=== PATIENT | female | born 2000 | race Caucasian/White ===

== ENCOUNTER 2020-04-10 12:15 | Emergency (ER) | payer MEDICAID, SELFPAY ==
[2020-04-10 12:37] VITALS: BP 114/76; PULSE 91; RESP 15; TEMP 37; O2SAT 98; BMI 25.7
--- NOTE | 2020-04-10 12:46 | XRR_ITS ---
PROCEDURE INFORMATION: Exam: XR Left Foot Complete Exam date and time: 04/10/2020 1:12 PM Age: 19 years old Clinical indication: Pain; Foot; Left; Patient HX: 4 days prior began hurting after workout. ; Additional info: Injury TECHNIQUE: Imaging protocol: XR Left foot. Views: 3 or more views. COMPARISON: CR Foot 3 views, LEFT* [id number] 07/11/2014 1:56 PM FINDINGS: Bones/joints: Negative for acute bony abnormality Soft tissues: Normal. XR/XR foot LT min 3V* [id number] IMPRESSION: No acute findings.
--- NOTE | 2020-04-10 12:46 | W.ED.EXTPRO ---
HPI - Extremity Problem General: Chief complaint: Extremity Problem,Nontraumatic Stated complaint: Left foot pain Time Seen by Provider: 04/10/20 12:42 History of Present Illness: HPI Narrative: Patient said her left foot is been hurting for 3 days. Started hurting the day after she began a workout routine. She did not remember any specific injury. She is describes pain being on the left midfoot and radiates up through the ankle joint. MD Complaint: extremity pain Onset (ago): day(s) Pain Consistency: constant Location: left and lower extremity Severity scale (1-10): 4 Quality: aching Radiation: proximal Relieving factors: rest Exacerbating factors: range of motion and weight bearing Associated symptoms: Reports no associated symptoms; Deny chest pain, fever(s) or rash Review of Systems Const: Denies: fever(s), chills or body aches Eyes: Denies: change in vision or blurry vision ENMT: Denies: throat pain or nasal congestion Card: Denies: chest pain or dyspnea on exertion Resp: Denies: dyspnea, productive cough or non-productive cough GI: Denies: abdominal pain, nausea or vomiting Musc: Reports: extremity pain (Left foot) Skin/Breast: Denies: rash Neuro: Denies: headache(s) Psych: Denies: anxiety or depression Jimmie/Lymph: Denies: easy bruising [facility] ED PFSH: Social History (Updated 04/10/20 @ 12:42 by Erik Teague RN) Smoking and tobacco status: never smoked Alcohol intake: never Substance/Drug Use: never Female Reproductive History: Date of last menstrual period: 04/10/20 Physical Exam Const: COMMON NORMALS: no acute distress, average body habitus and patient oriented x3 HENMT: COMMON NORMALS: normocephalic HEAD & SCALP: normal to inspection and normocephalic FACE & SINUS: normal facial exam Eye: COMMON NORMALS: conjunctivae normal GENERAL EYE: appearance normal, both eyes and all related structures CONJUNCTIVA: Yes conjunctivae normal Neck/C-Spine: COMMON NORMALS: no JVD Chest: COMMONS NORMALS: normal inspection of the chest Resp: COMMON NORMALS: normal respiratory effort and clear to auscultation bilaterally AUSCULTATION: clear to auscultation bilaterally Cardio: COMMON NORMALS: no JVD, regular rate and regular rhythm RATE: regular rate RHYTHM: regular rhythm GI: COMMON NORMALS: Normal to inspection, nondistended, normoactive bowel sounds present Extremity: COMMON NORMALS: normal to inspection and full ROM LEFT LOWER EXTREMITY: Yes foot & digits (Tenderness to midfoot no real swelling appreciated no bruising no erythema pain up above the ankle no swelling noted there.) Neuro: COMMON NORMALS: patient oriented x3 Course Vital Signs: Vital signs: Vital Signs Temperature 98.6 F 04/10/20 12:37 Pulse Rate 72 04/10/20 13:19 Respiratory Rate 18 04/10/20 13:19 Blood Pressure 122/74 04/10/20 13:19 Pulse Oximetry 96 04/10/20 13:19 Discharge Plan Discharge Patient Disposition: Home, Self-Care Clinical Impression: Sprain of left foot Qualifiers: Encounter type: initial encounter Qualified Code(s): S93.602A - Unspecified sprain of left foot, initial encounter Condition: Stable Discharge Orders: Discharge Order (Routine); Ordered 04/10/20 Ordered By: Jose Luis Manzano Referrals: Eddie Chiu MD [Primary Care Provider] - Discharge Diet: Usual diet Discharge Activity: Increase activity as tolerated Patient Instructions: Foot Sprain (ED) Activity Restrictions/Additional Instructions: Ice the area as needed no intense activity for next couple weeks. Can take ibuprofen or Tylenol for the pain. Follow-up with your family medical provider if no significant provement. Discharge Date/Time: 04/10/20 13:27 Coding Level of Care Code ED Insurance Application Investigator for Sam Fwd 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
[2020-04-10 13:19] VITALS: BP 122/74; PULSE 72; RESP 18; O2SAT 96
== END 2020-04-10 13:27 | disposition home or self-care (01) ==
PROVIDERS: Emergency Provider Nurse Practitioner Family; PCP Family Medicine
DX: S93.602A Unspecified sprain of left foot, initial encounter (principal); X58.XXXA Exposure to other specified factors, initial encounter
CPT/HCPCS: 12345; 73630; 99281; 99282

== ENCOUNTER 2020-06-27 12:50 | Emergency (ER) | payer MEDICAID, SELFPAY ==
[2020-06-27 13:09] VITALS: BP 113/64; PULSE 92; RESP 18; TEMP 36.8; O2SAT 97; BMI 25.0
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
[2020-06-27 13:59] LABS: Basophils # 0.1 10^3/uL (0.0-0.1); Basophils % 0.9 %; Eosinophils # 0.4 10^3/uL (0.0-0.8); Eosinophils % 5.9 %; Hematocrit 43.1 % (37.0-47.0); Hemoglobin 13.8 g/dL (11.5-15.3); Lymphocytes # 1.5 10^3/uL (1.5-6.5); Lymphocytes % 23.6 %; Mean Corpuscular Hemoglobin 28.9 pg (28.0-34.0); Mean Corpuscular Volume 90.2 fL (81-99); Monocytes # 0.8 10^3/uL (0.2-0.9); Monocytes % 11.9 %; Neutrophils % 57.2 %; Nucleated Red Blood Cells % 0 %; Platelet Count 338 10^3/cmm (130-400); Red Blood Count 4.78 10^6/uL (4.1-5.3); Red Cell Distribution Width 13.2 % (12.1-15.1); White Blood Count 6.5 10^3/uL (4.5-13.0)
[2020-06-27] MEDS: acetaminophen 500 mg Tablet 1000 MG PO (14:03)
[2020-06-27 14:12] LABS: Alanine Aminotransferase 24 U/L (0-33); Albumin Level 4.9 g/dL (3.5-5.2); Alkaline Phosphatase 83 IU/L (35-105); Anion Gap 15.9 (5-19); Aspartate Amino Transferase 22 U/L (0-32); Blood Urea Nitrogen 8 mg/dL (6-20); Carbon Dioxide 24 mmol/L (22-29); Chloride 103 mmol/L (98-107); Creatinine Clr Calc Pharmacy 108.7568; Globulin 2.8 g/dL (1.3-4.6); Glomerular Filtration Rate 91.4 mL/min (90-130); Glucose 88 mg/dL (65-115); Osmolality Calculated 286 mOsm/kg (285-295); Potassium 3.9 mmol/L (3.5-5.1); Sodium 139 mmol/L (136-145); Total Bilirubin 0.4 mg/dL (0.15-1.2); Total Protein 7.7 g/dL (6.6-8.7)
[2020-06-27] MEDS: ondansetron 2 mg/ML SDV 2 mL 4 MG IVP (14:13)
[2020-06-27 14:24] VITALS: RESP 18; O2SAT 98
[2020-06-27] MEDS: morphine 4 mg/mL SDV 1 mL 2 MG IVP (14:24)
[2020-06-27 14:33] LABS: HCG, Serum Qual Negative (Negative)
--- NOTE | 2020-06-27 14:34 | US_ITS ---
WS: [id number] PELVIC ULTRASOUND REASON FOR VISIT: pelvic pain TECHNIQUE: Grayscale and Doppler transabdominal ultrasound of the pelvis. FINDINGS: Unable to perform transvaginal ultrasound as requested. Uterus measures 7.50 cm x 4.1 cm x 3.3 cm. Uterine cavity and endometrium not well seen from transabd ominal approach. No uterine masses. Right ovary: measures 3.1 cm x 2.4 cm x 1.5 cm. Left ovary: measures 3.1 cm x 2.3 cm x 2.2 cm. Sonolucency in the left ovary measuring 2.24 x 1.59 x 1.77 cm. Good through transmission and acoustic al enhancement. No free fluid in the pelvis. No pelvic mass. US/US pelvic complete* [id number] IMPRESSION: The examination had to be performed transabdominal. No definite uterine abnormality. Left ovarian cyst as above. No other findings.
[2020-06-27 14:46] LABS: Add Urine Microscopic? YES; Bilirubin Urine Neg (Negative); Blood Urine 3+ (Negative); Glucose Urine UA Norm (Normal); Ketones Urine 1+ (Negative); Leukocyte Esterase Urine 1+ (Negative); Nitrate Urine Negative (Negative); Protein Urine Trace (Negative); Urine Appearance Cloudy (CLEAR); Urine Color Red (Yellow); Urobilinogen Urine Neg (Negative); pH Urine 8 (5-7)
[2020-06-27] MEDS: sodium chloride 0.9% 500 ML 999 ML IV (15:00)
[2020-06-27] MEDS: ketorolac 30 mg/mL INJ IVP (15:00)
[2020-06-27 15:06] LABS: Add Urine Culture? Yes; Bacteria Urine 1+ /hpf; Mucus Urine TRACE /hpf; RBC Urine >100 /hpf (0-2)
[2020-06-27 16:46] VITALS: BP 114/75; PULSE 66; RESP 18; O2SAT 99
--- NOTE | 2020-06-28 10:51 | DCPLANNER ---
sales manager prearranged funerals had message to schedule a follow up appointment for patient with [facility]. sales manager prearranged funerals called [facility], spoke with Abbi. sales manager prearranged funerals gave clinic patients information. sales manager prearranged funerals was told that patients information would be printed and reviewed. Clinic will call patient with appointment information.
--- NOTE | 2020-06-29 14:34 | DCPLANNER ---
Patient has a follow up appointment scheduled for Friday, July 03, [address] at 8:[address] Gay. Clinic will call patient with appointment information.
--- NOTE | 2020-07-13 16:15 | DCPLANNER ---
Patient had follow up appointment scheduled for 07.03.20 with [facility] - patient did attend appointment.
== END 2020-06-27 16:47 | disposition home or self-care (01) ==
PROVIDERS: Emergency Medicine; Emergency Provider Nurse Practitioner Family; PCP Family Medicine
DX: N93.9 Abnormal uterine and vaginal bleeding, unspecified (principal); N83.202 Unspecified ovarian cyst, left side; N30.01 Acute cystitis with hematuria
CPT/HCPCS: 12345; 36415; 76856; 80053; 81001; 84703; 85025; 87070; 87077; 87086; 87186; 87205; 87210; 87491; 87591; 96374; 96375; 99284; J1885; J2270; J2405; J7040

== ENCOUNTER 2020-07-09 01:50 | Emergency (ER) | payer MEDICAID, SELFPAY ==
[2020-07-09 01:50] VITALS: O2SAT 97
[2020-07-09 01:56] VITALS: BP 91/72; PULSE 114; RESP 30; TEMP 37.1; O2SAT 97; BMI 24.1
[2020-07-09 02:03] VITALS: PULSE 103; RESP 24; O2SAT 99
--- NOTE | 2020-07-09 02:08 | XRR_ITS ---
PROCEDURE INFORMATION: Exam: XR Chest, 1 View Exam date and time: 07/09/2020 2:53 AM Age: 20 years old Clinical indication: Cough and shortness of breath; Patient HX: Cough, SOB, cp, n/v TECHNIQUE: Imaging protocol: XR of the chest Views: 1 view. COMPARISON: No relevant prior studies available. FINDINGS: Lungs: Unremarkable. No consolidation. Pleural space: Unremarkable. No pleural effusion. No pneumothorax. Heart/Mediastinum: Unremarkable. No cardiomegaly. Bones/joints: Unremarkable. XR/XR chest 1V portable [id number] IMPRESSION: No acute findings.
[2020-07-09 02:18] LABS: Basophils # 0.1 10^3/uL (0.0-0.1); Basophils % 0.7 %; Eosinophils # 0.9 10^3/uL (0.0-0.8); Eosinophils % 6.2 %; Hematocrit 43.8 % (37.0-47.0); Hemoglobin 14.4 g/dL (11.5-15.3); Lymphocytes # 3.2 10^3/uL (1.5-6.5); Lymphocytes % 21.4 %; Mean Corpuscular HGB Conc 32.9 g/dL (30.0-36.0); Mean Corpuscular Hemoglobin 28.6 pg (28.0-34.0); Mean Corpuscular Volume 87.1 fL (81-99); Mean Platelet Volume 10.2 fL (7.4-10.4); Monocytes # 0.9 10^3/uL (0.2-0.9); Monocytes % 6.2 %; Neutrophils # 9.59 10^3/uL (1.8-8.0); Neutrophils % 65.1 %; Nucleated Red Blood Cells % 0 %; Platelet Count 484 10^3/cmm (130-400); Red Blood Count 5.03 10^6/uL (4.1-5.3); White Blood Count 14.8 10^3/uL (4.5-13.0)
--- NOTE | 2020-07-09 02:27 | W.ED.COVID ---
HPI - COVID General: Chief Complaint: COVID symptoms Stated Complaint: N/V, SOB, CP Time Seen by Provider: 07/09/20 01:57 Triage information: Has fever, cough or shortness of breath. No known COVID + exposure last 14 days History of Present Illness: HPI Narrative: 20-year-old female with history of asthma presents with cough, shortness of breath, wheezing, nausea and vomiting. She states that most of the vomiting is posttussive type vomiting. She has used a nebulizer once without any improvement. She was out of her rescue inhaler at home. She has been coughing quite a bit today. MD complaint: reported COVID exposure and has COVID symptoms Prior covid testing: yes, results pending at other location COVID 19 common symptoms: positive cough, dyspnea, headache(s), nasal congestion, nausea, vomiting and diarrhea; negative fever(s), chills or body aches COVID 19 other sytmptoms: positive chest pressure, chest pain and respiratory distress Onset (ago): day(s) (3) Severity: slowly worsening Pertinent comorbid conditions: COPD/respiratory disease Treatment prior to arrival: breathing treatments COVID Results: SARS-CoV-2 Antigen (Rapid) Negative (Negative) 07/09/20 02:44 07/09/20 Review of Systems Const: Denies: fever(s), chills or body aches Eyes: Denies: change in vision or blurry vision ENMT: Reports: nasal congestion Card: Reports: chest pain Resp: Reports: dyspnea GI: Reports: nausea, vomiting and diarrhea : Denies: dysuria, urinary urgency or hematuria Musc: Denies: neck pain or joint warmth Skin/Breast: Denies: rash, pruritus or erythema Neuro: Reports: headache(s) Psych: Denies: anxiety PFSH ED PFSH: Family History (Updated 07/03/20 @ 14:13 by Akiko Sellers RN) Mother Hypertension Thyroid condition Denies family history of Colon cancer Ovarian cancer Diabetes CAD (coronary artery disease) Clotting disorder Hyperlipidemia Breast cancer Anesthesia complication Bleeding disorder Uterine cancer Stroke Social History (Updated 07/03/20 @ 14:14 by Akiko Sellers RN) Smoking and tobacco status: never smoked Alcohol intake: never Female Reproductive History: Date of last menstrual period: 06/27/20 Physical Exam Const: GENERAL APPEARANCE: well developed, in distress and ill appearing ORIENTATION/CONSCIOUSNESS: Yes oriented to person, Yes oriented to place and Yes oriented to time HENMT: COMMON NORMALS: normocephalic, external ears normal and Normal external nose present HEAD & SCALP: normocephalic FACE & SINUS: normal facial exam NOSE: Normal external nose present and No nasal discharge present EXTERNAL EAR: Yes external ears normal Eye: COMMON NORMALS: Equal, round and reactive pupils present, EOMs intact bilaterally and conjunctivae normal EYELID: eyelids normal CONJUNCTIVA: Yes conjunctivae normal PUPIL: Yes Equal, round and reactive pupils present Neck/C-Spine: GENERAL: No tracheal deviation Chest: COMMONS NORMALS: normal inspection of the chest CHEST: No tenderness Resp: EFFORT & INSPECTION: Yes tachypneic, Yes respiratory distress, No retractions, Yes uses accessory muscles and No tracheal deviation AUSCULTATION: rhonchi, wheezes and lung sounds not diminished Cardio: COMMON NORMALS: regular rhythm RATE: tachycardic RHYTHM: regular rhythm HEART SOUNDS: no murmurs PERIPHERAL PULSES: radial pulses present GI: INSPECTION: No abdominal distension AUSCULTATION: No Hyperactive bowel sounds present and No Hypoactive bowel sounds present PALPATION: No Guarding due to palpation present (GI) and No Rigid due to palpation PERCUSSION: no dullness to percussion and no tympanic to percussion Neuro: SENSORIUM/ORIENTATION: Yes oriented to person, Yes oriented to place and Yes oriented to time Psych: COMMON NORMALS: mental status grossly normal Skin: COMMON NORMALS: no rashes or lesions noted GENERAL SKIN EXAM: no rashes or lesions noted Course ED course: Patient is significantly improved. She had a couple of episodes of desaturation, that improved with coughing. There may be some mucus plugging involved. She has a clear chest x-ray. White blood cell count 14.8. Hemoglobin 14.4. Her CRP is minimally elevated. Her other inflammatory markers are negative. Her rapid Covid is negative as well. Her electrolytes are normal. She is received 4 puffs albuterol inhaler, 10 mg Decadron IV, and 500 mL of fluid, and is feeling improved. We will hold her for a bit, repeat the albuterol, and possibly allow her to go home based on how she feels at that point. She did not have medication for her nebulizer, and could not find her rescue inhaler at home. Vital Signs: Vital signs: Vital Signs Temperature 98.7 F 07/09/20 01:56 Pulse Rate 103 H 07/09/20 02:03 Respiratory Rate 28 H 07/09/20 02:35 Blood Pressure 91/72 07/09/20 01:56 Pulse Oximetry 99 07/09/20 02:03 MDM - COVID Lab Data Result diagrams: 07/09/20 02:00 07/09/20 02:00 Labs: Lab Results 07/09/20 07/09/20 07/09/20 Range/Units 02:00 02:00 02:00 WBC 14.8 H (4.5-13.0) 10^3/uL RBC 5.03 (4.1-5.3) 10^6/uL Hgb 14.4 (11.5-15.3) g/dL Hct 43.8 (37.0-47.0) % MCV 87.1 (81-99) fL MCH 28.6 (28.0-34.0) pg MCHC 32.9 (30.0-36.0) g/dL RDW 13.0 (12.1-15.1) % Plt Count 484 H (130-400) 10^3/cmm MPV 10.2 (7.4-10.4) fL Neut % (Auto) 65.1 % Lymph % (Auto) 21.4 % [place] % (Auto) 6.2 % Eos % (Auto) 6.2 % Baso % (Auto) 0.7 % Neut # (Auto) 9.59 H (1.8-8.0) 10^3/uL Lymph # (Auto) 3.2 (1.5-6.5) 10^3/uL [place] # (Auto) 0.9 (0.2-0.9) 10^3/uL Eos # (Auto) 0.9 H (0.0-0.8) 10^3/uL Baso # (Auto) 0.1 (0.0-0.1) 10^3/uL Nucleated RBC % (auto) 0 % Nucleated RBCs # 0.0 /100WBC D-Dimer <= 0.27 (0-0.59) ug/mIFEU Specimen Type Sample Site ABG pH (7.35-7.45) ABG pCO2 (35-45) mmHg ABG pO2 (80.0-100.0) mmHg ABG HCO3 (22-26) mmol/L ABG Base Excess (-2.0-2.0) mmol/L Deion Test Hematocrit (37-47) % Hgb O2 Saturation (95-100) % Carboxyhemoglobin (0.4-20.1) %THgb Methemoglobin (0.4-1.5) % Total Hemoglobin (12-16) g/dL O2 Delivery Device O2 Liters/Min % Certified Flex Endoscope Reprocessor ID Sodium 137 (136-145) mmol/L Potassium 4.1 (3.5-5.1) mmol/L Chloride 98 (98-107) mmol/L Carbon Dioxide 22 (22-29) mmol/L Anion Gap 21.1 H (5-19) BUN 9 (6-20) mg/dL Creatinine 0.6 (0.5-0.9) mg/dL GFR Calculation 127.5 (90-130) mL/min Glucose 97 (65-115) mg/dL Calculated Osmolality 283 L (285-295) mOsm/kg Lactic Acid (0.5-2.2) mmol/L Calcium 10.2 (8.5-10.5) mg/dL Ferritin 50 (15-150) ng/mL Total Bilirubin 0.2 (0.15-1.2) mg/dL AST 25 (0-32) U/L ALT 27 (0-33) U/L Alkaline Phosphatase 81 (35-105) IU/L C-Reactive Protein 8.9 H (0.0-4.9) mg/L NT-Pro-B Natriuret Pep 5 (0-125) pg/mL Total Protein 7.4 (6.6-8.7) g/dL Albumin 4.8 (3.5-5.2) g/dL Globulin 2.6 (1.3-4.6) g/dL Procalcitonin 0.05 (0-0.5) ng/mL SARS-CoV-2 Ag (Rapid) (Negative) 07/09/20 07/09/20 07/09/20 Range/Units 02:35 02:44 03:05 WBC (4.5-13.0) 10^3/uL RBC (4.1-5.3) 10^6/uL Hgb (11.5-15.3) g/dL Hct (37.0-47.0) % MCV (81-99) fL MCH (28.0-34.0) pg MCHC (30.0-36.0) g/dL RDW (12.1-15.1) % Plt Count (130-400) 10^3/cmm MPV (7.4-10.4) fL Neut % (Auto) % Lymph % (Auto) % [place] % (Auto) % Eos % (Auto) % Baso % (Auto) % Neut # (Auto) (1.8-8.0) 10^3/uL Lymph # (Auto) (1.5-6.5) 10^3/uL [place] # (Auto) (0.2-0.9) 10^3/uL Eos # (Auto) (0.0-0.8) 10^3/uL Baso # (Auto) (0.0-0.1) 10^3/uL Nucleated RBC % (auto) % Nucleated RBCs # /100WBC D-Dimer (0-0.59) ug/mIFEU Specimen Type Arterial Sample Site Radial, left ABG pH 7.50 H (7.35-7.45) ABG pCO2 29.7 L (35-45) mmHg ABG pO2 120.0 H (80.0-100.0) mmHg ABG HCO3 23.2 (22-26) mmol/L ABG Base Excess 0.8 (-2.0-2.0) mmol/L Deion Test Pos Hematocrit 39.9 (37-47) % Hgb O2 Saturation 95.5 (95-100) % Carboxyhemoglobin 3.4 (0.4-20.1) %THgb Methemoglobin 0.9 (0.4-1.5) % Total Hemoglobin 13.0 (12-16) g/dL O2 Delivery Device Nc O2 Liters/Min 2.0 % Certified Flex Endoscope Reprocessor ID ellpe Sodium (136-145) mmol/L Potassium (3.5-5.1) mmol/L Chloride (98-107) mmol/L Carbon Dioxide (22-29) mmol/L Anion Gap (5-19) BUN (6-20) mg/dL Creatinine (0.5-0.9) mg/dL GFR Calculation (90-130) mL/min Glucose (65-115) mg/dL Calculated Osmolality (285-295) mOsm/kg Lactic Acid 2.0 (0.5-2.2) mmol/L Calcium (8.5-10.5) mg/dL Ferritin (15-150) ng/mL Total Bilirubin (0.15-1.2) mg/dL AST (0-32) U/L ALT (0-33) U/L Alkaline Phosphatase (35-105) IU/L C-Reactive Protein (0.0-4.9) mg/L NT-Pro-B Natriuret Pep (0-125) pg/mL Total Protein (6.6-8.7) g/dL Albumin (3.5-5.2) g/dL Globulin (1.3-4.6) g/dL Procalcitonin (0-0.5) ng/mL SARS-CoV-2 Ag (Rapid) Negative (Negative) COVID Results: SARS-CoV-2 Antigen (Rapid) Negative (Negative) 07/09/20 02:44 07/09/20 Discharge Plan Discharge Patient Disposition: Home Clinical Impression: Asthma exacerbation Qualifiers: Asthma severity: moderate Asthma persistence: persistent Qualified Code(s): J45.41 - Moderate persistent asthma with (acute) exacerbation Condition: Stable Prescriptions: New albuterol sulfate 2.5 mg /3 mL (0.083 %) solution for nebulization 2.5 mg INHALATION Q4H PRN (Reason: shortness of breath or wheezing) Qty: 180 RF: 0 dexamethasone 6 mg tablet 6 mg PO DAILY Qty: 5 RF: 0 No Action ferrous sulfate [Feosol] 325 mg (65 mg iron) tablet 325 mg PO DAILY RF: 0 norgestimate-ethinyl estradiol [Sprintec (28)] 0.25-35 mg-mcg tablet 1 tab PO DAILY Qty: 84 RF: 0 IBU 800 mg tablet 800 mg PO TID PRN (Reason: pain) Qty: 60 RF: 1 Discharge Orders: Discharge Order (Routine); Ordered 07/09/20 Ordered By: Gil Javier Referrals: Eddie Chiu MD [Primary Care Provider] - 1-3 days Discharge Diet: Advance as tolerated Discharge Activity: Increase activity as tolerated Patient Instructions: Asthma Exacerbation - Adult Activity Restrictions/Additional Instructions: Continue to quarantine until you hear back from your other COVID-19 test. Return to the emergency department for worsening shortness of breath despite treatment, chest discomfort, vomiting liquids or medications, fever greater than 100, other concerning symptoms. Use your inhaler, or nebulizer, every 4 hours while awake for the next 48 hours, then as needed. Other medications as directed. Coding Level of Care Code ED Gynecology Teacher for Sam Fwd 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
[2020-07-09 02:35] VITALS: RESP 28
[2020-07-09] MEDS: dexamethasone 10 mg/mL INJ IVP (02:35)
[2020-07-09] MEDS: ondansetron 2 mg/ML SDV 2 mL 4 MG IVP (02:35)
[2020-07-09] MEDS: sodium chloride 0.9% 500 ML 999 ML IV (02:35)
[2020-07-09] MEDS: morphine 4 mg/mL SDV 1 mL IVP (02:35)
[2020-07-09 02:38] LABS: NT Pro B Type Natriuretic Pept 5 pg/mL (0-125); Procalcitonin 0.05 ng/mL (0-0.5)
[2020-07-09 02:49] LABS: D Dimer <= 0.27 ug/mIFEU (0-0.59)
[2020-07-09 02:50] LABS: Alanine Aminotransferase 27 U/L (0-33); Albumin Level 4.8 g/dL (3.5-5.2); Alkaline Phosphatase 81 IU/L (35-105); Anion Gap 21.1 (5-19); Aspartate Amino Transferase 25 U/L (0-32); Blood Urea Nitrogen 9 mg/dL (6-20); C Reactive Protein 8.9 mg/L (0.0-4.9); Calcium 10.2 mg/dL (8.5-10.5); Carbon Dioxide 22 mmol/L (22-29); Chloride 98 mmol/L (98-107); Ferritin 50 ng/mL (15-150); Globulin 2.6 g/dL (1.3-4.6); Glomerular Filtration Rate 127.5 mL/min (90-130); Glucose 97 mg/dL (65-115); Osmolality Calculated 283 mOsm/kg (285-295); Potassium 4.1 mmol/L (3.5-5.1); Sodium 137 mmol/L (136-145); Total Bilirubin 0.2 mg/dL (0.15-1.2); Total Protein 7.4 g/dL (6.6-8.7)
[2020-07-09 03:09] LABS: SARS Covid-2 Antigen Negative (Negative)
[2020-07-09 03:12] LABS: ABG PCO2 29.7 mmHg (35-45); Arterial Blood Gas Hematocrit 39.9 % (37-47); Base Excess ABG 0.8 mmol/L (-2.0-2.0); Blood Gas Allen Test Pos; Blood Gas Sample Site Radial, left; Blood Gas Sample Type Arterial; Carboxyhemoglobin 3.4 %THgb (0.4-20.1); HCO3 ABG 23.2 mmol/L (22-26); HGB O2 Sat 95.5 % (95-100); Methemoglobin 0.9 % (0.4-1.5); Oxygen Device NC
[2020-07-09 06:42] VITALS: BP 106/84; PULSE 77; RESP 16; O2SAT 99
== END 2020-07-09 06:44 | disposition home or self-care (01) ==
PROVIDERS: Emergency Provider Emergency Medicine; PCP Family Medicine
DX: J45.41 Moderate persistent asthma with (acute) exacerbation (principal)
CPT/HCPCS: 12345; 36600; 71045; 80053; 82728; 82805; 83605; 83880; 84145; 85025; 85378; 86140; 87040; 87205; 87426; 94640; 96374; 96375; 99283; 99284; J1100; J2270; J2405; J3535; J7040

== ENCOUNTER 2020-09-20 07:19 | Emergency (ER) | payer MEDICAID, SELFPAY ==
[2020-09-20 07:22] VITALS: BP 85/69; PULSE 117; RESP 22; TEMP 36.9; O2SAT 97; BMI 23.3
[2020-09-20 07:31] VITALS: BP 115/68; PULSE 85; RESP 20; O2SAT 96
--- NOTE | 2020-09-20 07:33 | XR_ITS ---
WS: [id number] Exam: XR chest 1V portable [id number] Date/Time of Exam: 09/20/2020 7:35 AM Reason For Exam: dyspnea/cough Comparison 07/09/2020. Findings: The lungs are clear and fully expanded. Costophrenic angles are sharp. No infiltrates. Bronchovascula r relief appears normal. Cardiac silhouette is unremarkable. Bony elements are intact. XR/XR chest 1V portable [id number] IMPRESSION: Unremarkable chest radiograph.
[2020-09-20 07:57] VITALS: PULSE 85; RESP 28; O2SAT 98
[2020-09-20] MEDS: albuterol 8 gm MDI 2 PUFF INHALATION (07:57)
[2020-09-20 08:36] LABS: SARS Covid-2 Antigen Negative (Negative)
--- NOTE | 2020-09-20 09:27 | ED_ITS ---
HPI - COVID General: Chief Complaint: COVID symptoms Stated Complaint: Fever,cough,sob,n/v (tested yesterday at ) Time Seen by Provider: 09/20/20 07:23 Triage information: Has fever, cough or shortness of breath . Exposure to COVID + person last 14 days History of Present Illness: HPI Narrative: 20-year-old female presents emergency room with complaint of cough and wheezing. She had this earlier this week along with fever shortness of breath nausea and vomiting temp up to 1018. She is exposed to Covid on 1225 her symptoms began 3 days later and began progressively worsening since then. She had a rapid antigen test yesterday [facility] that was negative. She told us that she had also had a PCR test done however when we called [facility] they could supply the rapid antigen test but did not have documentation that she had a PCR test sent out. She has been using albuterol and she is also on dexamethasone. She does result report good results from the albuterol. MD complaint: has COVID symptoms Prior covid testing: yes, results known COVID 19 common symptoms: positive fever(s), chills, non-productive cough, dyspnea and fatigue; negative throat pain, nasal congestion, nausea, vomiting or diarrhea COVID 19 other sytmptoms: negative chest pain or requiring oxygen Onset (ago): day(s) (6) Severity: mild Pertinent comorbid conditions: COPD/respiratory disease Treatment prior to arrival: none, steroids and breathing treatments COVID Results: SARS-CoV-2 Antigen (Rapid) Negative (Negative) 09/20/20 08:09 09/20/20 SARS-CoV-2 RNA (RT-PCR) Pending 09/20/20 09:13 09/20/20 Review of Systems Const: Reports: fever(s), chills and fatigue ENMT: Denies: throat pain, ear or mastoid pain, nasal discharge or nasal congestion Card: Denies: chest pain, edema, dyspnea on exertion or orthopnea Resp: Reports: dyspnea and non-productive cough GI: Denies: abdominal pain, nausea, vomiting, hematemesis, coffee ground emesis, diarrhea, constipation, bloating, hematochezia or melena : Denies: flank pain, difficulty voiding, dysuria, urinary frequency or urinary urgency Skin/Breast: Denies: rash or pruritus [facility] ED PFSH: Medical History (Updated 09/20/20 @ 09:50 by Kaushal Yarbrough DO) Asthma Surgical History (Updated 09/20/20 @ 09:29 by Kaushal Yarbrough DO) S/P tonsillectomy Family History Mother Hypertension Thyroid condition Denies family history of Colon cancer Ovarian cancer Diabetes CAD (coronary artery disease) Clotting disorder Hyperlipidemia Breast cancer Anesthesia complication Bleeding disorder Uterine cancer Stroke Social History Smoking and tobacco status: never smoked Alcohol intake: never Female Reproductive History: Date of last menstrual period: 06/27/20 Physical Exam Const: COMMON NORMALS: no acute distress GENERAL APPEARANCE: cooperative and comfortable ORIENTATION/CONSCIOUSNESS: Yes awake, Yes oriented to person, Yes oriented to place and Yes oriented to time HENMT: COMMON NORMALS: normocephalic, atraumatic and hearing grossly normal bilaterally HEAD & SCALP: normocephalic and atraumatic Neck/C-Spine: COMMON NORMALS: no JVD Resp: COMMON NORMALS: No retractions and No use of accessory muscles AUSCULTATION: wheezes Cardio: COMMON NORMALS: no JVD, regular rate, regular rhythm and No murmurs present (Cardio) RATE: regular rate RHYTHM: regular rhythm GI: COMMON NORMALS: Soft to palpation and No hepatosplenomegaly present AUSCULTATION: Yes normoactive bowel sounds PALPATION: Yes Soft to palpation, No Tenderness to palpation present (GI), No Guarding due to palpation present (GI) and Yes No hepatosplenomegaly present Extremity: COMMON NORMALS: normal to inspection, capillary refill normal, no clubbing, cyanosis or edema, no calf tenderness and no pedal edema Neuro: SENSORIUM/ORIENTATION: Yes oriented to person, Yes oriented to place and Yes oriented to time Skin: COMMON NORMALS: no rashes or lesions noted GENERAL SKIN EXAM: no rashes or lesions noted Course Vital Signs: Vital signs: Vital Signs Temperature 98.4 F 09/20/20 07:22 Pulse Rate 89 09/20/20 10:10 Respiratory Rate 23 H 09/20/20 10:10 Blood Pressure 87/68 12/31/20 10:10 Pulse Oximetry 95 09/20/20 10:10 MDM - COVID MDM Narrative: Medical decision making narrative: Patient improved with steroids and albuterol. We will discharge her home contact her with the results of her Covid PCR the antigen was negative Lab Data: Labs: Lab Results 09/20/20 Range/Units 08:09 SARS-CoV-2 Ag (Rap id) Negative (Negative) COVID Results: SARS-CoV-2 Antigen (Rapid) Negative (Negative) 09/20/20 08:09 09/20/20 SARS-CoV-2 RNA (RT-PCR) Pending 09/20/20 09:13 09/20/20 Discharge Plan Discharge Patient Disposition: Home Clinical Impression: Asthma, Suspected severe acute respiratory syndrome coronavirus 2 (SARS-CoV-2) infection Condition: Stable Prescriptions: No Action ferrous sulfate [Feosol] 325 mg (65 mg iron) tablet 325 mg PO DAILY RF: 0 norgestimate-ethinyl estradiol [Sprintec (28)] 0.25-35 mg-mcg tablet 1 tab PO DAILY Qty: 84 RF: 0 IBU 800 mg tablet 800 mg PO TID PRN (Reason: pain) Qty: 60 RF: 1 albuterol sulfate 2.5 mg /3 mL (0.083 %) solution for nebulization 2.5 mg INHALATION Q4H PRN (Reason: shortness of breath or wheezing) Qty: 180 RF: 0 azithromycin 250 mg tablet See Rx Instructions .ROUTE .COMPLEX RF: 0 prednisone 20 mg tablet 20 mg PO BID RF: 0 ProAir HFA 90 mcg/actuation HFA aerosol inhaler 2 puff INHALATION Q4H PRN (Reason: Shortness Of Breath) RF: 0 Discharge Orders: Discharge ED (Routine); Ordered 09/20/20 Ordered By: Kaushal Yarbrough Referrals: Eddie Chiu MD [Primary Care Provider] - Discharge Diet: Usual diet Discharge Activity: Increase activity as tolerated Activity Restrictions/Additional Instructions: Your home O2 sats if below 90 consistently return to the emergency room. Recommend self quarantine until labs are returned. Coding Level of Care Code ED Senior Integration Architect for Chg Fwd 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
[2020-09-20 10:10] VITALS: BP 87/68; PULSE 89; RESP 23; O2SAT 95
[2020-09-21 22:28] LABS: Quest SARS-CoV-2 RNA NOT DETECTED (NOT DETECTED)
--- NOTE | 2020-09-22 14:01 | PC.NURSE ---
Patient notified of COVID results at this time.
== END 2020-09-20 10:11 | disposition home or self-care (01) ==
PROVIDERS: Emergency Provider Family Medicine; PCP Family Medicine
DX: J45.909 Unspecified asthma, uncomplicated (principal); Z20.828 Contact with and (suspected) exposure to other viral communicable diseases
CPT/HCPCS: 12345; 71045; 87426; 87635; 94640; 99281; 99283; J3535

== ENCOUNTER → 2020-10-01 13:07 | Outpatient (BNVA) | payer MEDICAID, SELFPAY | PROVIDERS: PCP Family Medicine; Visit Provider Obstetrics & Gynecology | DX: N83.201 Unspecified ovarian cyst, right side (principal) | CPT/HCPCS: 76830 ==

== ENCOUNTER → 2020-10-10 12:02 | Outpatient (BNVA) | payer MEDICAID, SELFPAY | PROVIDERS: PCP Family Medicine; Visit Provider Obstetrics & Gynecology | DX: Z01.812 Encounter for preprocedural laboratory examination (principal); G89.29 Other chronic pain; R10.2 Pelvic and perineal pain | CPT/HCPCS: 87635 ==

== ENCOUNTER 2020-10-17 12:06 | Day surgery (SDC) | payer MEDICAID, SELFPAY ==
[2020-10-15 14:10] VITALS: BMI 23.3
[2020-10-15 14:42] LABS: Add Urine Microscopic? NO
[2020-10-15 15:01] LABS: Basophils # 0.1 10^3/uL (0.0-0.1); Basophils % 0.8 %; Eosinophils # 0.3 10^3/uL (0.0-0.8); Hemoglobin 14.9 g/dL (11.5-15.3); Lymphocytes # 2.7 10^3/uL (1.5-6.5); Lymphocytes % 35.9 %; Mean Corpuscular HGB Conc 33.1 g/dL (30.0-36.0); Mean Corpuscular Hemoglobin 30.8 pg (28.0-34.0); Mean Corpuscular Volume 93.2 fL (81-99); Mean Platelet Volume 10.2 fL (7.4-10.4); Monocytes # 0.4 10^3/uL (0.2-0.9); Monocytes % 5.8 %; Neutrophils # 4.04 10^3/uL (1.8-8.0); Neutrophils % 53.2 %; Nucleated Red Blood Cells % 0 %; Platelet Count 317 10^3/cmm (130-400); Red Blood Count 4.83 10^6/uL (4.1-5.3); Red Cell Distribution Width 13.5 % (12.1-15.1); White Blood Count 7.6 10^3/uL (4.5-13.0)
[2020-10-15 15:12] LABS: Bilirubin Urine Neg (Negative); Blood Urine Neg (Negative); Glucose Urine UA Norm (Normal); Ketones Urine Negative (Negative); Leukocyte Esterase Urine Negative (Negative); Nitrate Urine Negative (Negative); OR HCG Qualitative Urine Negative (Negative); Protein Urine Neg (Negative); Specific Gravity, Urine 1.015 (1.005-1.030); Urine Appearance Clear (CLEAR); Urine Color Straw (Yellow); Urobilinogen Urine Norm (Negative); pH Urine 7 (5-7)
--- NOTE | 2020-10-15 15:15 | P.ANESASSM_ITS ---
Pre-Anesthetic Assessment Pre-Anesthetic Assessment: Height/Weight: Height 1.65 m Weight 63.503 kg Proposed Procedure: Operation Date: 10/17/20 13:55 Proposed Procedures p Laparoscopy Diagnostic 71421 R10.2(Not Applicable) - Kam Gay MD Was Beta Shane taken within 24 hours: N/A Social: Social History: No alcohol and No tobacco Exam: Pre-Anes Outpt Exam: alert, oriented x 3, clear to auscultation bilaterally and regular rate & rhythm Airway: Submandibular: WNL Cervical ROM: WNL MP: 2 Dentition: Full Pulmonary: Pulmonary: Asthma CV/HEM: CV/HEM: Anemia Anesthetic Plan: ASA status: 2 Anesthesia: General Risk of > 500 ml blood loss (7ml/kg in children): No PFSH Anesthesia PFSH: Medical History Asthma Surgical History S/P tonsillectomy Family History Mother Hypertension Thyroid condition Denies family history of Colon cancer Ovarian cancer Diabetes CAD (coronary artery disease) Clotting disorder Hyperlipidemia Breast cancer Anesthesia complication Bleeding disorder Uterine cancer Stroke Social History (Updated 10/15/20 @ 11:02 by Akiko Sellers RN) Smoking and tobacco status: never smoked Alcohol intake: never Substance/Drug Use: never Female Reproductive History: Date of last menstrual period: 06/27/20 Data Anesthesia CBC & Chem 7: 10/15/20 14:15 10/15/20 14:15 Other Labs: Laboratory Results - last 48 hr 10/15/20 10/15/20 10/15/20 14:13 14:13 14:15 WBC 7.6 RBC 4.83 Hgb 14.9 Hct 45.0 MCV 93.2 MCH 30.8 MCHC 33.1 RDW 13.5 Plt Count 317 MPV 10.2 Neut % (Auto) 53.2 Lymph % (Auto) 35.9 [place] % (Auto) 5.8 Eos % (Auto) 4.0 Baso % (Auto) 0.8 Neut # (Auto) 4.04 Lymph # (Auto) 2.7 [place] # (Auto) 0.4 Eos # (Auto) 0.3 Baso # (Auto) 0.1 Nucleated RBC % (auto) 0 Nucleated RBCs # 0.0 Urine Color Straw Urine Appearance Clear Urine pH 7 Ur Specific [place] 1.015 Urine Protein Neg Urine Glucose (UA) Norm Urine Ketones Negative Urine Blood Neg Urine Nitrate Negative Urine Bilirubin Neg Urine Urobilinogen Norm Ur Leukocyte Esterase Negative Urine HCG, Qual Negative Cardiac Studies: No Data to Display
[2020-10-15 15:23] LABS: Anion Gap 13.8 (5-19); Blood Urea Nitrogen 4 mg/dL (6-20); Carbon Dioxide 25 mmol/L (22-29); Chloride 104 mmol/L (98-107); Glomerular Filtration Rate 106.7 mL/min (90-130); Glucose 89 mg/dL (65-115); Osmolality Calculated 284 mOsm/kg (285-295); Potassium 3.8 mmol/L (3.5-5.1); Sodium 139 mmol/L (136-145)
[2020-10-17] VITALS (8 sets, daily range): BP systolic 91–130; BP diastolic 56–97; PULSE 55–91; RESP 10–20; TEMP 36.4–36.6; O2SAT 96–100
[2020-10-17] MEDS: sodium chloride 0.9% 500 ML IV (12:39)
[2020-10-17] MEDS: midazolam 1 mg/mL INJ 2 mL 2 MG IVP (12:44)
[2020-10-17] MEDS: scopolamine 1.5 Patch 1 PATCH TRANSDERMA (12:46)
--- NOTE | 2020-10-17 13:45 | P.ANESUD_ITS ---
Pre-Anesthetic Update Pre-Anesthetic Assessment: Date of Surgery/Procedure: 10/17/20 Preop Elzbieta gnosis: Chronic pelvic pain and dysmenorrhea Proposed Procedure: Operation Date: 10/17/20 13:50 Proposed Procedures p Laparoscopy Diagnostic 27578 R10.2(Not Applicable) - Kam Gay MD Any changes to Pre-Anesthetic Assessment?: No Last Intake: Intake Last Liquid Date 10/16/20 Last Liquid Time 21:00 Last Solid Date 10/16/20 Last Solid Time 21:00 Labs Last 48hrs: Laboratory Results - last 48 hr 10/15/20 10/15/20 10/15/20 14:13 14:13 14:15 WBC RBC Hgb Hct MCV MCH MCHC RDW Plt Count MPV Neut % (Auto) Lymph % (Auto) [place] % (Auto) Eos % (Auto) Baso % (Auto) Neut # (Auto) Lymph # (Auto) [place] # (Auto) Eos # (Auto) Baso # (Auto) Nucleated RBC % (a uto) Nucleated RBCs # Sodium 139 Potassium 3.8 Chloride 104 Carbon Dioxide 25 Anion Gap 13.8 BUN 4 L Creatinine 0.7 GFR Calculation 106.7 Glucose 89 Calculated Osmolal ity 284 L Calcium 11.7 H Urine Color Straw Urine Appearance Clear Urine pH 7 Ur Specific Gravit y 1.015 Urine Protein Neg Urine Glucose (UA) Norm Urine Ketones Negative Urine Blood Neg Urine Nitrate Negative Urine Bilirubin Neg Urine Urobilinogen Norm Ur Leukocyte Aliyah ase Negative Urine HCG, Qual Negative Blood Type Rho(D) Type Antibody Screen 10/15/20 10/15/20 14:15 14:15 WBC 7.6 RBC 4.83 Hgb 14.9 Hct 45.0 MCV 93.2 MCH 30.8 MCHC 33.1 RDW 13.5 Plt Count 317 MPV 10.2 Neut % (Auto) 53.2 Lymph % (Auto) 35.9 [place] % (Auto) 5.8 Eos % (Auto) 4.0 Baso % (Auto) 0.8 Neut # (Auto) 4.04 Lymph # (Auto) 2.7 [place] # (Auto) 0.4 Eos # (Auto) 0.3 Baso # (Auto) 0.1 Nucleated RBC % (a uto) 0 Nucleated RBCs # 0.0 Sodium Potassium Chloride Carbon Dioxide Anion Gap BUN Creatinine GFR Calculation Glucose Calculated Osmolal ity Calcium Urine Color Urine Appearance Urine pH Ur Specific Gravit y Urine Protein Urine Glucose (UA) Urine Ketones Urine Blood Urine Nitrate Urine Bilirubin Urine Urobilinogen Ur Leukocyte Aliyah ase Urine HCG, Qual Blood Type AB Negative Rho(D) Type Negative Antibody Screen Negative Vitals: Temperature 97.6 F 10/17/20 12:29 Temperature Source Temporal Artery S can 10/17/20 12:29 Pulse Rate 91 10/17/20 12:29 Respiratory Rate 18 10/17/20 12:29 Blood Pressure 130/97 10/17/20 12:29 Blood Pressure Ary n 108 10/17/20 12:29 Pulse Oximetry 97 10/17/20 12:29 Oxygen Delivery Me thod 10/17/20 12:29 Exam: Pre-Anes Outpt Exam: alert, oriented x 3, clear to auscultation bilaterally and regular rate & rhythm Cardiac Studies: No Data to Display
[2020-10-17] MEDS: vancomycin 1,000 MG in sodium chloride 0.9% 250 ML 250 MG IV (13:46)
--- NOTE | 2020-10-17 14:07 | W.PM.OPSUD ---
Surgery/Procedure H&P Update DATE OF PROCEDURE: October 17, 2020 DATE H&P PERFORMED: 10/15/20 H&P UPDATE INFORMATION: I have reviewed H&P completed within last 30 days, I have examined patient prior to procedure and No changes to prior documentation PREOP DIAGNOSIS: Chronic pelvic pain and dysmenorrhea PLANNED PROCEDURE: Operation Date: 10/17/20 13:50 Proposed Procedures p Laparoscopy Diagnostic 58061 R10.2(Not Applicable) - Kam Gay MD
--- NOTE | 2020-10-17 15:09 | P.OP_ITS ---
Operative Report Date of procedure: October 17, 2020 Pre-op Diagnosis: Chronic pelvic pain and dysmenorrhea Post-op diagnosis: same Post-op Findings: Normal pelvic organ Procedure Done: Diagnostic laparoscopy Pathology: none sent Surgeon: Kam Gay MD Anesthesia: General Estimated blood loss (mL): 1 IV fluids (mL): 300 Urine output (mL): 50 Complications: None Condition: stable Disposition: PACU Brief History: 20-year-old female with a history of chronic pelvic pain Procedure: DESCRIPTION OF PROCEDURE: After informed consent, the patient was taken to the operating room where general anesthesia was administered. The patient was examined under anesthesia and found to have a normal uterus with normal adnexa. She was placed in the dorsal lithotomy position and prepped and draped in sterile fashion. Pre- Procedure Time-Out verifying the correct patient identity, correct procedure verified with consent, correct site and side, correct patient position, availability of correct implants and any special equipment or requirements was performed and acknowledge by the OR team. A weighted speculum was placed in the vagina, and the anterior lip of cervix was grasped with the single toothed tenaculum. A uterine manipulator was advanced into the endocervical. Tenaculum was removed after uterine manipulator was secured. The speculum was removed from the vagina. An intraumbilical incision was made with a scalpel. While tenting up on the abdomen, a Verres needle with sleeve was admitted into the intra-abdominal cavity. A saline drop test was performed and noted to be within normal limits. Pneumoperitoneum was attained with 4 liters of carbon dioxide. The Verres needle was removed. A 5 mm trocar and sleeve were admitted into the abdomen and laparoscopic confirmation of location was achieved, A second incision was made 3 cm above the symphysis pubis, and a 5 mm trocar and sleeve were admitted into the abdomen under direct, laparoscopic visualization without complication. A survey revealed normal abdominal anatomy. The pelvic survey shows normal uterus, left and right adnexa. A 5 mm blunt probe was advanced through the second trocar sleeve, and light manipulation of ovaries and uterus to assess the posterior aspects was performed no lesions identified. Carbon dioxide was allowed to escape from the abdomen. The instruments were removed, and skin cover with a bandage. The instruments were removed from the vagina, and excellent hemostasis was noted. The patient tolerated the procedure well, and sponge, lap and needle count were correct times two. The patient taken to the recovery room in good condition.
[2020-10-17] MEDS: HYDROcodone-acetaminophen 5-325 mg Tablet 1 TAB PO (16:15)
--- NOTE | 2020-10-17 16:48 | ANE.PACU2 ---
Inpatient post-anesthesia follow up: Airway intact: Yes Vital signs: Temperature 97.8 F Pulse Rate 64 Respiratory Rate 20 Blood Pressure 122/83 Pulse Oximetry 100 Oxygen Delivery Me thod Room Air Oxygen Flow Rate 6 Fraction of Inspir ed Oxygen Hydration adequate: Yes Nausea and vomiting: No Pain level: 2 Mental status: Baseline
[2020-10-17 17:13] LABS: Calcium 9.3 mg/dL (8.5-10.5)
== END 2020-10-17 16:45 | disposition home or self-care (01) ==
PROVIDERS: PCP Family Medicine; Visit Provider Obstetrics & Gynecology
PROC: (CPT 49320; principal; 2020-10-17 13:50)
DX: R10.2 Pelvic and perineal pain (principal); N94.6 Dysmenorrhea, unspecified
CPT/HCPCS: 49320; 12345; 36415; 80048; 81003; 81025; 84703; 85025; 86850; 86900; 96365; J1100; J1200; J2250; J2405; J2704; J2710; J3010; J3370; J3490; J7040; J7050

== ENCOUNTER → 2020-12-20 12:41 | Outpatient (BNVA) | payer MEDICAID, SELFPAY | PROVIDERS: PCP Family Medicine; Visit Provider Counselor Mental Health | DX: F43.12 Post-traumatic stress disorder, chronic (principal); F33.1 Major depressive disorder, recurrent, moderate | CPT/HCPCS: 90834 ==

== ENCOUNTER 2020-12-23 18:23 | Emergency (ER) | payer MEDICAID, SELFPAY ==
[2020-12-23 18:43] VITALS: BP 109/72; PULSE 93; RESP 16; TEMP 36.4; O2SAT 99; BMI 23.3
[2020-12-23 20:30] LABS: Basophils # 0.1 10^3/uL (0.0-0.1); Basophils % 0.9 %; Eosinophils # 0.4 10^3/uL (0.0-0.8); Eosinophils % 2.8 %; Hematocrit 46.4 % (37.0-47.0); Hemoglobin 15.3 g/dL (11.5-15.3); Mean Corpuscular Hemoglobin 30.1 pg (28.0-34.0); Mean Corpuscular Volume 91.3 fL (81-99); Mean Platelet Volume 9.8 fL (7.4-10.4); Monocytes # 0.9 10^3/uL (0.2-0.9); Monocytes % 6.3 %; Neutrophils # 7.46 10^3/uL (1.8-8.0); Neutrophils % 53.6 %; Nucleated Red Blood Cells % 0 %; Platelet Count 482 10^3/cmm (130-400); Red Blood Count 5.08 10^6/uL (4.1-5.3); Red Cell Distribution Width 12.5 % (12.1-15.1); White Blood Count 13.9 10^3/uL (4.5-13.0)
--- NOTE | 2020-12-23 20:42 | CTR_ITS ---
PROCEDURE INFORMATION: Exam: CT Abdomen And Pelvis With Contrast Exam date and time: 12/23/2020 8:51 PM Age: 20 years old Clinical indication: Abdominal pain; Localized; Right lower quadrant (rlq); Patient HX: C/O rlq and lbp w HX of ovarian cysts; Additional info: Rlq pain. H/o ovarian cysts TECHNIQUE: Imaging protocol: Computed tomography of the abdomen and pelvis with contrast. Total images: 240 Radiation optimization: All CT scans at this facility use at least one of these dose optimization techniques: automated exposure control; mA and/or kV adjustment per patient size (includes targeted exams where dose is matched to clinical indication); or iterative reconstruction. Contrast material: OMNI 300; Contrast volume: 95 ml; Contrast route: INTRAVENOUS (IV); COMPARISON: US pelvic complete* [id number] 06/27/2020 3:25 PM RADIATION DOSE METRICS: Total DLP (mGy-cm): 1652.65 FINDINGS: Lungs: Limited assessment of the lung bases fails to reveal evidence for active cardiopulmonary process. Liver: No visible hepatic mass or cystic structure. Benign calcifications caudate lobe. Gallbladder and bile ducts: Normal. No calcified stones. No ductal dilation. Pancreas: Pancreas unremarkable. No visible pancreatic ductal ectasia. Spleen: Small splenule. Spleen otherwise unremarkable. Adrenal glands: Adrenal glands unremarkable. Kidneys and ureters: No hydronephrosis or perinephric fluid. No visible nephrolithiasis. Stomach and bowel: Assessment of the hollow viscus fails to reveal evidence of active or acute pathology. Nonobstructed bowel pattern. No visible acute diverticulitis. No visible adynamic or reactive ileus. Appendix: The appendix is visualized and appears noninflamed. Intraperitoneal space: No visible pneumoperitoneum or intraperitoneal ascites. No visible evidence of mesenteric lymphadenitis or active mesenteritis/panniculitis. Vasculature: The abdominal aorta is nonaneurysmal. Lymph nodes: No current visible evidence of active mesenteric or retroperitoneal lymphadenopathy. Urinary bladder: Urinary bladder unremarkable. Reproductive: Unremarkable as visualized. Bones/joints: No visible active or acute osseous pathology.. Soft tissues: Unremarkable. Other findings: Obesity. CT/CT abdomen pelvis w con* [id number] IMPRESSION: Currently no visible evidence for acute abdominal or pelvic pathologic process. Radiation Dose CTDIVOL = (mGy): DLP = 1652.65 (mGy-cm)
[2020-12-23 20:46] LABS: HCG, Serum Qual Negative (Negative)
[2020-12-23 20:46] LABS: Add Urine Microscopic? YES; Bilirubin Urine Neg (Negative); Blood Urine 3+ (Negative); Glucose Urine UA Norm (Normal); Ketones Urine Negative (Negative); Leukocyte Esterase Urine Negative (Negative); Nitrate Urine Negative (Negative); Protein Urine 2+ (Negative); Squamous Epithelial Cell Urine 15-25 /hpf (0-5); Urine Color Yellow (Yellow); Urobilinogen Urine Norm (Negative); WBC Urine 0-4 /hpf (0-5); pH Urine 6 (5-7)
[2020-12-23 20:47] LABS: Add Urine Culture? No; Bacteria Urine 1+ /hpf; Mucus Urine 1+ /hpf
[2020-12-23] MEDS: HYDROcodone-acetaminophen 5-325 mg Tablet 1 TAB PO (20:48)
[2020-12-23 20:51] LABS: Alanine Aminotransferase 30 U/L (0-33); Albumin Level 4.8 g/dL (3.5-5.2); Alkaline Phosphatase 81 IU/L (35-105); Aspartate Amino Transferase 22 U/L (0-32); Blood Urea Nitrogen 8 mg/dL (6-20); C Reactive Protein 1.9 mg/L (0.0-4.9); Calcium 9.2 mg/dL (8.5-10.5); Carbon Dioxide 23 mmol/L (22-29); Chloride 102 mmol/L (98-107); Globulin 3.4 g/dL (1.3-4.6); Glomerular Filtration Rate 91.4 mL/min (90-130); Glucose 87 mg/dL (65-115); Lipase 37 U/L (13-60); Osmolality Calculated 284 mOsm/kg (285-295); Sodium 138 mmol/L (136-145); Total Bilirubin 0.4 mg/dL (0.15-1.2); Total Protein 8.2 g/dL (6.6-8.7)
--- NOTE | 2020-12-23 20:56 | W.ED.ABDPA2 ---
HPI - Abdominal Pain General: Chief Complaint: Abdominal Pain Stated Complaint: LOWER ABD CRAMPS/DUE TO STATED CYST Time Seen by Provider: 12/23/20 20:04 History of Present Illness: HPI narrative: 20-year-old female who comes to the ER complaining of lower right abdominal pain. She has a history of ovarian cysts and says the pain feels similar and she has been cramping and having vaginal bleeding more than usual. She had a procedure some weeks ago which was laparoscopic and had a cyst removed. She had an improvement in her pain until a couple days ago when the pain started to return. She was placed on oral contraceptive pills which have improved her symptoms some though not today. MD elicited complaint: abdominal pain Pain Consistency: constant Quality: sharp Radiation: RLQ Associated Symptoms: Denies GI cramping and diarrhea Related Data: Date of Last Menstrual Period: 12/23/20 Review of Systems General: Reports: 10 or more systems reviewed and unremarkable except in HPI and below Const: Denies: fatigue Eyes: Denies: change in vision, blurry vision or eye redness ENMT: Denies: throat pain, swelling of lips/tongue, ear or mastoid pain or nasal congestion Card: Denies: chest pain, palpitations, irregular heart rhythm, edema, dyspnea on exertion or orthopnea Resp: Denies: dyspnea, productive cough or non-productive cough GI: Denies: abdominal pain, diarrhea or GI cramping : Denies: flank pain, difficulty voiding, urinary frequency or urinary urgency Musc: Denies: neck pain, back pain, extremity pain, joint pain, joint redness, limited range of motion or muscle weakness Skin/Breast: Denies: rash, pruritus, erythema, skin pain or skin tenderness Neuro: Denies: headache(s), numbness in extremities, weakness in extremities, sensory changes, difficulty walking, dizziness, confusion or Slurred speech present Psych: Denies: anxiety or depression Endo: Denies: polyuria All/Imm: Denies: urticaria, throat swelling or tongue swelling PFSH ED PFSH: Medical History Asthma Chronic pelvic pain in female Surgical History S/P tonsillectomy Family History Mother Hypertension Thyroid condition Denies family history of Colon cancer Ovarian cancer Diabetes CAD (coronary artery disease) Clotting disorder Hyperlipidemia Breast cancer Anesthesia complication Bleeding disorder Uterine cancer Stroke Social History (Updated 12/23/20 @ 18:48 by Erik Teague RN) Smoking and tobacco status: current every day smoker cigarettes Packs smoked per day: 1 Alcohol intake: never Substance/Drug Use: never Female Reproductive History: Date of last menstrual period: 12/23/20 Physical Exam Const: COMMON NORMALS: no acute distress, average body habitus, patient oriented x3, no limitations, healthy appearing, alert and well nourished GENERAL APPEARANCE: cooperative, comfortable, well kempt and well developed ORIENTATION/CONSCIOUSNESS: Yes awake, Yes oriented to person, Yes oriented to place and Yes oriented to time HENMT: COMMON NORMALS: normocephalic, external ears normal and Normal external nose present HEAD & SCALP: normal to inspection and normocephalic NOSE: Normal external nose present EXTERNAL EAR: Yes external ears normal MOUTH: Normal oral and palatal mucosa present THROAT: posterior oropharynx normal Eye: COMMON NORMALS: Equal, round and reactive pupils present and EOMs intact bilaterally GENERAL EYE: appearance normal, both eyes and all related structures PUPIL: Yes Equal, round and reactive pupils present Neck/C-Spine: COMMON NORMALS: full ROM, no lymphadenopathy, no meningeal signs and no JVD GENERAL: Yes normal visual inspection Lymph: LYMPHATIC: no lymphadenopathy noted Chest: COMMONS NORMALS: normal inspection of the chest and normal palpation of entire chest wall Resp: COMMON NORMALS: normal respiratory effort, No retractions, No use of accessory muscles, clear to auscultation bilaterally and percussion normal EFFORT & INSPECTION: Yes able to speak in complete sentences AUSCULTATION: clear to auscultation bilaterally PERCUSSION: percussion normal Cardio: COMMON NORMALS: no JVD, regular rate, regular rhythm, S1 normal heart sound present, S2 normal heart sound present and Peripheral pulses 2+ throughout RATE: regular rate RHYTHM: regular rhythm HEART SOUNDS: S1 normal heart sound present and S2 normal heart sound present PERIPHERAL PULSES: Peripheral pulses 2+ throughout GI: COMMON NORMALS: Normal to inspection, nondistended, normoactive bowel sounds present, Soft to palpation and no masses INSPECTION: Yes normal to inspection PALPATION: Yes Soft to palpation GI image (female): 1. mild tenderness : COMMON NORMALS: Yes no CVA tenderness BLADDER/KIDNEY EXAM: Yes no CVA tenderness Back/Pelvis: COMMON NORMALS: no CVA tenderness, thoracic and lumbar spine normal to inspection, no thoracic nor lumbar tenderness and thoraco-lumbar ROM normal Extremity: COMMON NORMALS: normal to inspection, full ROM, capillary refill normal, no joint enlargement and no pedal edema GENERAL: Yes normal exam except as noted Neuro: COMMON NORMALS: patient oriented x3, CN's II-XII intact bilaterally, moves all extremities, no focal motor deficits, no sensory deficits noted and gait normal SENSORIUM/ORIENTATION: Yes alert, Yes oriented to person, Yes oriented to place and Yes oriented to time MENINGEAL SIGNS: Yes no meningeal signs Psych: COMMON NORMALS: mental status grossly normal, Normal thought process present, cooperative, normal affect and speech normal APPEARANCE: Yes well kempt ATTITUDE: Yes calm SPEECH: Yes normal speech THOUGHT PROCESS: Normal thought process present Skin: COMMON NORMALS: no rashes or lesions noted GENERAL SKIN EXAM: no rashes or lesions noted Course Vital Signs: Vital signs: Vital Signs Temperature 97.5 F L 12/23/20 18:43 Pulse Rate 76 12/23/20 22:14 Respiratory Rate 17 12/23/20 22:14 Blood Pressure 106/59 12/23/20 22:14 Pulse Oximetry 97 12/23/20 22:14 MDM - Abdominal Pain MDM Narrative: Medical decision making narrative: Patient came in complaining of right lower quadrant abdominal pain which she is familiar with as ovarian cyst pain. CT abdomen was normal and ultrasound also had no significant abnormalities. Recommended taking [id number] medications and following up with her inspector and clipper in a few days. ER with worsening symptoms. Lab Data: Labs: Lab Results 12/23/20 12/23/20 12/23/20 Range/Units 20:12 20:17 20:17 WBC 13.9 H (4.5-13.0) 10^3/ uL RBC 5.08 (4.1-5.3) 10^6/u L Hgb 15.3 (11.5-15.3) g/dL Hct 46.4 (37.0-47.0) % MCV 91.3 (81-99) fL MCH 30.1 (28.0-34.0) pg MCHC 33.0 (30.0-36.0) g/dL RDW 12.5 (12.1-15.1) % Plt Count 482 H (130-400) 10^3/c mm MPV 9.8 (7.4-10.4) fL Neut % (Auto) 53.6 % Lymph % (Auto) 36.0 % [place] % (Auto) 6.3 % Eos % (Auto) 2.8 % Baso % (Auto) 0.9 % Neut # (Auto) 7.46 (1.8-8.0) 10^3/u L Lymph # (Auto) 5.0 (1.5-6.5) 10^3/u L [place] # (Auto) 0.9 (0.2-0.9) 10^3/u L Eos # (Auto) 0.4 (0.0-0.8) 10^3/u L Baso # (Auto) 0.1 (0.0-0.1) 10^3/u L Nucleated RBC % (a uto) 0 % Nucleated RBCs # 0.0 /100WBC Sodium 138 (136-145) mmol/L Potassium 4.0 (3.5-5.1) mmol/L Chloride 102 (98-107) mmol/L Carbon Dioxide 23 (22-29) mmol/L Anion Gap 17.0 (5-19) BUN 8 (6-20) mg/dL Creatinine 0.8 (0.5-0.9) mg/dL GFR Calculation 91.4 (90-130) mL/min Glucose 87 (65-115) mg/dL Calculated Osmolal ity 284 L (285-295) mOsm/k g Calcium 9.2 (8.5-10.5) mg/dL Total Bilirubin 0.4 (0.15-1.2) mg/dL AST 22 (0-32) U/L ALT 30 (0-33) U/L Alkaline Phosphata se 81 (35-105) IU/L C-Reactive Protein 1.9 (0.0-4.9) mg/L Total Protein 8.2 (6.6-8.7) g/dL Albumin 4.8 (3.5-5.2) g/dL Globulin 3.4 (1.3-4.6) g/dL Lipase 37 (13-60) U/L HCG, Qual (Negative) Urine Color Yellow (Yellow) Urine Appearance Sl cloudy A (CLEAR) Urine pH 6 (5-7) Ur Specific Gravit y 1.020 (1.005-1.030) Urine Protein 2+ H (Negative) Urine Glucose (UA) Norm (Normal) Urine Ketones Negative (Negative) Urine Blood 3+ H (Negative) Urine Nitrate Negative (Negative) Urine Bilirubin Neg (Negative) Urine Urobilinogen Norm (Negative) mg/dL Ur Leukocyte Aliyah ase Negative (Negative) Urine RBC 5-10 H (0-2) /hpf Urine WBC 0-4 H (0-5) /hpf Ur Squamous Epith Cells 15-25 H (0-5) /hpf Amorphous Sediment Not Reportable Urine Bacteria 1+ H (NONE) /hpf Urine Mucus 1+ /hpf 04// Range/Units 20:17 WBC (4.5-13.0) 10^3/ uL RBC (4.1-5.3) 10^6/u L Hgb (11.5-15.3) g/dL Hct (37.0-47.0) % MCV (81-99) fL MCH (28.0-34.0) pg MCHC (30.0-36.0) g/dL RDW (12.1-15.1) % Plt Count (130-400) 10^3/c mm MPV (7.4-10.4) fL Neut % (Auto) % Lymph % (Auto) % [place] % (Auto) % Eos % (Auto) % Baso % (Auto) % Neut # (Auto) (1.8-8.0) 10^3/u L Lymph # (Auto) (1.5-6.5) 10^3/u L [place] # (Auto) (0.2-0.9) 10^3/u L Eos # (Auto) (0.0-0.8) 10^3/u L Baso # (Auto) (0.0-0.1) 10^3/u L Nucleated RBC % (a uto) % Nucleated RBCs # /100WBC Sodium (136-145) mmol/L Potassium (3.5-5.1) mmol/L Chloride (98-107) mmol/L Carbon Dioxide (22-29) mmol/L Anion Gap (5-19) BUN (6-20) mg/dL Creatinine (0.5-0.9) mg/dL GFR Calculation (90-130) mL/min Glucose (65-115) mg/dL Calculated Osmolal ity (285-295) mOsm/k g Calcium (8.5-10.5) mg/dL Total Bilirubin (0.15-1.2) mg/dL AST (0-32) U/L ALT (0-33) U/L Alkaline Phosphata se (35-105) IU/L C-Reactive Protein (0.0-4.9) mg/L Total Protein (6.6-8.7) g/dL Albumin (3.5-5.2) g/dL Globulin (1.3-4.6) g/dL Lipase (13-60) U/L HCG, Qual Negative (Negative) Urine Color (Yellow) Urine Appearance (CLEAR) Urine pH (5-7) Ur Specific Gravit y (1.005-1.030) Urine Protein (Negative) Urine Glucose (UA) (Normal) Urine Ketones (Negative) Urine Blood (Negative) Urine Nitrate (Negative) Urine Bilirubin (Negative) Urine Urobilinogen (Negative) mg/dL Ur Leukocyte Aliyah ase (Negative) Urine RBC (0-2) /hpf Urine WBC (0-5) /hpf Ur Squamous Epith Cells (0-5) /hpf Amorphous Sediment Urine Bacteria (NONE) /hpf Urine Mucus /hpf Discharge Plan Discharge Patient Disposition: Home Clinical Impression: Ovarian cyst Condition: Stable Prescriptions: No Action medroxyprogesterone [Depo-Provera] 150 mg/mL syringe 150 mg IM ONCE Qty: 1 RF: 3 ferrous sulfate [Feosol] 325 mg (65 mg iron) tablet 325 mg PO DAILY RF: 0 albuterol sulfate 2.5 mg /3 mL (0.083 %) solution for nebulization 2.5 mg INHALATION Q4H PRN (Reason: shortness of breath or wheezing) Qty: 180 RF: 0 albuterol sulfate [ProAir HFA] 90 mcg/actuation HFA aerosol inhaler 2 puff INHALATION Q4H PRN (Reason: Shortness Of Breath) RF: 0 ibuprofen 800 mg tablet 800 mg PO TID PRN (Reason: pain) Qty: 60 RF: 0 [place] 5-325 mg tablet 1 tab PO Q4H PRN (Reason: pain) Qty: 20 RF: 0 Discharge Orders: Discharge ED (Routine); Ordered 12/23/20 Ordered By: Lopez Serrano Discharge Diet: Advance as tolerated Discharge Activity: Resume usual activity Patient Instructions: Ovarian Cyst (ED), Opioid Safety Activity Restrictions/Additional Instructions: You are having pain most likely from your ovarian cyst. Please continue to take [id number] medications to help with this. Return to the ER with worsening symptoms otherwise follow-up with your inspector and clipper. Coding Level of Care Code ED Eyeglass Frames Polisher for Sam Nix
--- NOTE | 2020-12-23 20:58 | US_ITS ---
WS: [id number] ULTRASOUND PELVIS TECHNIQUE: Transvaginal. CLINICAL INFORMATION: ovarian cyst LMP: : No. COMPARISON: October 01, [address] December 23, 2020 FINDINGS: Uterus Orientation: Anteverted. Size: 7.3 x 3.5 cm Masses: None. Cervix: Normal. Endometrium: Normal. Endometrium thickness: 1.7 cm. Adnexa: Small right ovarian follicle. Right ovary size: 2.2 x 2.5 cm. Left ovary size: 2.2 x 2.0 x 2.1 cm. Free fluid: None. Other findings: None. US/US transvaginal [id number] IMPRESSION: 1. Endometrial thickening measuring 17 mm. Normal uterus. 2. Small right ovarian follicle. Ovaries otherwise normal in appearance. 3. No free fluid in the cul-de-sac.
[2020-12-23] MEDS: iohexol 300 mg/mL 100 mL Btl IV (21:05)
[2020-12-23 22:14] VITALS: BP 106/59; PULSE 76; RESP 17; O2SAT 97
[2020-12-23 23:00] VITALS: BP 97/79; PULSE 79; RESP 18; O2SAT 96
== END 2020-12-23 23:00 | disposition home or self-care (01) ==
PROVIDERS: Emergency Medicine; Emergency Provider Family Medicine
DX: N83.201 Unspecified ovarian cyst, right side (principal); F17.210 Nicotine dependence, cigarettes, uncomplicated
CPT/HCPCS: 74177; 76830; 80053; 81001; 83690; 84703; 85025; 86140; 99283; Q9967

== ENCOUNTER → 2020-12-27 12:31 | Outpatient (BNVA) | payer MEDICAID, SELFPAY | PROVIDERS: PCP Family Medicine; Visit Provider Counselor Mental Health | DX: F43.12 Post-traumatic stress disorder, chronic (principal); F33.1 Major depressive disorder, recurrent, moderate | CPT/HCPCS: 90834; 90839 ==

== ENCOUNTER 2020-12-28 21:54 | Emergency (ER) | payer MEDICAID, SELFPAY ==
[2020-12-28 22:04] VITALS: BP 116/75; PULSE 79; RESP 18; TEMP 36.5; O2SAT 99; BMI 24.1
--- NOTE | 2020-12-28 23:42 | ED_ITS ---
HPI - Female Genitourinary General: Chief complaint: Vaginal Bleeding Stated complaint: HEAVY BLEEDING PASSING LARGE CLOTS Time Seen by Provider: 12/28/20 23:27 Source: patient Mode of arrival: ambulatory Limitations: no limitations History of Present Illness: HPI Narrative: Patient is a 20-year-old female who presents to ED today with a complaint of heavy prolonged menstrual bleeding. Patient tells me she has bled daily over the past month. She states today she has soaked 5-6 pads total. She is concerned because she passed 2 large clots. Patient has been following up with Dr. Gay regularly in regards to the abnormal bleeding and pelvic pain. She recently underwent exploratory laparoscopy to evaluate for possible endometriosis but this was negative. She states 2-1/2 months ago she was placed on the Depo shot to try to help control bleeding and pain however this has been unsuccessful. elicited complaint: vaginal bleeding Onset (ago): month(s) Severity: moderate Female Urogenital Radiation: Non-Radiating Quality of pain: cramping Consistency: intermittent Vaginal discharge: none Vaginal bleeding: heavy and clots Exacerbating factors: none Relieving factors: none Associated symptoms: Deny abdominal pain, headache(s), nausea or vaginal discharge Patient : No Date of Last Menstrual Period: 12/23/20 Review of Systems Const: Denies: fever(s) or chills Eyes: Denies: change in vision or blurry vision Card: Denies: chest pain Resp: Denies: dyspnea GI: Denies: abdominal pain, nausea, vomiting or diarrhea : Reports: vaginal bleeding, dysmenorrhea, metrorrhagia, change in menstrual flow and pelvic pain; Denies: flank pain, difficulty voiding, dysuria, urinary frequency, urinary urgency, vaginal odor or vaginal discharge Musc: Denies: back pain Skin/Breast: Denies: rash Neuro: Denies: headache(s) PFSH ED PFSH: Medical History Asthma Chronic pelvic pain in female Surgical History S/P tonsillectomy Family History Mother Hypertension Thyroid condition Denies family history of Colon cancer Ovarian cancer Diabetes CAD (coronary artery disease) Clotting disorder Hyperlipidemia Breast cancer Anesthesia complication Bleeding disorder Uterine cancer Stroke Social History (Updated 12/23/20 @ 18:48 by Erik Teague RN) Smoking and tobacco status: current every day smoker cigarettes Packs smoked per day: 1 Alcohol intake: never Female Reproductive History: Date of last menstrual period: 12/23/20 Physical Exam Const: COMMON NORMALS: no acute distress, patient oriented x3, no limitations and alert GENERAL APPEARANCE: cooperative ORIENTATION/CONSCIOUSNESS: Yes awake GI: COMMON NORMALS: Normal to inspection, nondistended, normoactive bowel sounds present, Soft to palpation, No hepatosplenomegaly present and no masses PALPATION: Yes Soft to palpation, Yes Tenderness to palpation present (GI) (throughout lower abdomen-non surgical exam) and Yes No hepatosplenomegaly present : COMMON NORMALS: Yes no CVA tenderness, Yes normal external appearance, Yes normal appearance of the vagina and Yes normal appearance of the cervix BLADDER/KIDNEY EXAM: Yes no CVA tenderness SPECULUM EXAM - VAGINA: Yes Vaginal discharge present (small amount of brown/bloody discharge; no clots) SPECULUM EXAM - CERVIX: No mucoid cervix and No Abnormal cervical discharge present Back/Pelvis: COMMON NORMALS: no CVA tenderness Neuro: COMMON NORMALS: patient oriented x3 SENSORIUM/ORIENTATION: Yes alert Course Vital Signs: Vital signs: Vital Signs Temperature 97.7 F 12/28/20 22:04 Pulse Rate 81 12/29/20 00:06 Respiratory Rate 18 12/28/20 22:04 Blood Pressure 111/65 12/29/20 00:06 Pulse Oximetry 99 12/28/20 22:04 MDM - Female MDM Narrative: Medical decision making narrative: Patient had very minimal bleeding on her pelvic exam. She is not tachycardic. Her orthostatics are negative. Her H&H are stable. At this time I recommend she continue to follow- up with Dr. Gay. There is certainly nothing emergent that we need to do on today's visit. Return to ED precautions given. Lab Data: Labs: Lab Results 12/28/20 12/28/20 Range/Units 23:44 23:44 WBC 11.2 (4.5-13.0) 10^3/ uL RBC 4.47 (4.1-5.3) 10^6/u L Hgb 13.3 (11.5-15.3) g/dL Hct 40.6 (37.0-47.0) % MCV 90.8 (81-99) fL MCH 29.8 (28.0-34.0) pg MCHC 32.8 (30.0-36.0) g/dL RDW 12.2 (12.1-15.1) % Plt Count 391 (130-400) 10^3/c mm MPV 9.9 (7.4-10.4) fL Neut % (Auto) 49.0 % Lymph % (Auto) 38.9 % [place] % (Auto) 6.4 % Eos % (Auto) 4.5 % Baso % (Auto) 0.7 % Neut # (Auto) 5.49 (1.8-8.0) 10^3/u L Lymph # (Auto) 4.4 (1.5-6.5) 10^3/u L [place] # (Auto) 0.7 (0.2-0.9) 10^3/u L Eos # (Auto) 0.5 (0.0-0.8) 10^3/u L Baso # (Auto) 0.1 (0.0-0.1) 10^3/u L Nucleated RBC % (a uto) 0 % Nucleated RBCs # 0.0 /100WBC HCG, Qual Negative (Negative) Discharge Plan Discharge Patient Disposition: Home Clinical Impression: Menometrorrhagia Condition: Stable Prescriptions: No Action medroxyprogesterone [Depo-Provera] 150 mg/mL syringe 150 mg IM ONCE Qty: 1 RF: 3 ferrous sulfate [Feosol] 325 mg (65 mg iron) tablet 325 mg PO DAILY RF: 0 hydrocodone-acetaminophen 5-325 mg tablet 1 tab PO Q6H PRN (Reason: pain) Qty: 12 RF: 0 albuterol sulfate 2.5 mg /3 mL (0.083 %) solution for nebulization 2.5 mg INHALATION Q4H PRN (Reason: shortness of breath or wheezing) Qty: 180 RF: 0 albuterol sulfate [ProAir HFA] 90 mcg/actuation HFA aerosol inhaler 2 puff INHALATION Q4H PRN (Reason: Shortness Of Breath) RF: 0 ibuprofen 800 mg tablet 800 mg PO TID PRN (Reason: pain) Qty: 60 RF: 0 [place] 5-325 mg tablet 1 tab PO Q4H PRN (Reason: pain) Qty: 20 RF: 0 Discharge Orders: Discharge ED (Routine); Ordered 12/29/20 Ordered By: Suzette Nava Referrals: Eddie Chiu MD [Primary Care Provider] - Coding Level of Care Code ED Guest Relations Coordinator for Chg Fwd Exam Expanded Problem Focused
[2020-12-29 00:06] VITALS: BP 111/65; BP 114/78; BP 121/71; PULSE 81
[2020-12-29 00:15] LABS: Basophils # 0.1 10^3/uL (0.0-0.1); Basophils % 0.7 %; Eosinophils # 0.5 10^3/uL (0.0-0.8); Eosinophils % 4.5 %; Hematocrit 40.6 % (37.0-47.0); Hemoglobin 13.3 g/dL (11.5-15.3); Lymphocytes # 4.4 10^3/uL (1.5-6.5); Lymphocytes % 38.9 %; Mean Corpuscular HGB Conc 32.8 g/dL (30.0-36.0); Mean Corpuscular Hemoglobin 29.8 pg (28.0-34.0); Mean Corpuscular Volume 90.8 fL (81-99); Mean Platelet Volume 9.9 fL (7.4-10.4); Monocytes # 0.7 10^3/uL (0.2-0.9); Monocytes % 6.4 %; Neutrophils # 5.49 10^3/uL (1.8-8.0); Nucleated Red Blood Cells % 0 %; Platelet Count 391 10^3/cmm (130-400); Red Blood Count 4.47 10^6/uL (4.1-5.3); Red Cell Distribution Width 12.2 % (12.1-15.1); White Blood Count 11.2 10^3/uL (4.5-13.0)
[2020-12-29 00:25] LABS: HCG, Serum Qual Negative (Negative)
--- NOTE | 2020-12-31 10:22 | DCPLANNER ---
operations manager/coordinator had message to schedule a followup appointment for patient with [facility]. operations manager/coordinator called [facility]. operations manager/coordinator spoke with Kayy, gave clinic patients information. operations manager/coordinator was told that patients information would be printed and reviewed. Clinic will call patient with appointment information.
--- NOTE | 2021-01-02 07:54 | DCPLANNER ---
Patient has a follow up appointment scheduled for Monday, January 04, 2021 at 11:[address] Gay at [facility]. Clinic will call patient with appointment information.
--- NOTE | 2021-01-15 15:51 | DCPLANNER ---
Patient had a follow up appointment scheduled for 01.04.[address] Gay - patient did not attend appointment.
== END 2020-12-29 00:32 | disposition home or self-care (01) ==
PROVIDERS: Emergency Provider Physician Assistant; PCP Family Medicine
DX: N92.1 Excessive and frequent menstruation with irregular cycle (principal); F17.210 Nicotine dependence, cigarettes, uncomplicated
CPT/HCPCS: 84703; 85025; 99283

== ENCOUNTER → 2021-01-02 15:11 | Outpatient (BNVA) | payer MEDICAID, SELFPAY | PROVIDERS: PCP Family Medicine; Visit Provider Counselor Mental Health | DX: F43.12 Post-traumatic stress disorder, chronic (principal); F33.1 Major depressive disorder, recurrent, moderate | CPT/HCPCS: 90832 ==

== ENCOUNTER → 2021-01-21 14:51 | Outpatient (BNVA) | payer MEDICAID, SELFPAY | PROVIDERS: PCP Family Medicine; Visit Provider Counselor Mental Health | DX: F43.12 Post-traumatic stress disorder, chronic (principal); F33.1 Major depressive disorder, recurrent, moderate | CPT/HCPCS: 90834 ==

== ENCOUNTER → 2021-03-16 11:42 | Outpatient (BNVA) | payer MEDICAID, SELFPAY | PROVIDERS: PCP Family Medicine; Visit Provider Nurse Practitioner Family | DX: J02.9 Acute pharyngitis, unspecified (principal); J30.9 Allergic rhinitis, unspecified; F17.210 Nicotine dependence, cigarettes, uncomplicated; Z71.89 Other specified counseling | CPT/HCPCS: 87880 ==

== ENCOUNTER 2021-03-17 20:26 | Emergency (ER) | payer MEDICAID, SELFPAY ==
[2021-03-17 21:23] VITALS: BP 133/87; PULSE 121; RESP 17; TEMP 37.2; O2SAT 99; BMI 25.0
--- NOTE | 2021-03-17 22:19 | XRR_ITS ---
PROCEDURE INFORMATION: Exam: XR Chest Exam date and time: 03/17/2021 10:19 PM Age: 20 years old Clinical indication: Cough TECHNIQUE: Imaging protocol: XR of the chest. Views: 1 view. COMPARISON: CR XR chest 1V portable [id number] 09/20/2020 7:35 AM FINDINGS: Lungs: Unremarkable. No consolidation. Pleural spaces: Unremarkable. No pleural effusion. No pneumothorax. Heart/Mediastinum: Unremarkable. No cardiomegaly. Bones/joints: Unremarkable. XR/XR chest 1V portable [id number] IMPRESSION: No acute findings.
--- NOTE | 2021-03-17 22:20 | W.ED.URI ---
HPI - URI/Sore Throat General: Chief Complaint: General Medical Stated Complaint: sore throat/cough Time Seen by Provider: 03/17/21 22:04 Source: patient Mode of arrival: ambulatory Limitations: no limitations History of Present Illness: HPI Narrative: Patient is a 20-year-old female who presents to ED today with a complaint of sore throat, nasal congestion, productive cough, and generally feeling unwell. Patient states she was seen in urgent care 2 days ago and had a negative strep swab. Patient feels like she is not improving. No fevers. No sick contacts. MD elicited complaint: cough, sore throat and nasal congestion Onset (ago): day(s) Consistency: constant Severity: moderate Description of mucous: clear Able to tolerate fluids by mouth: Yes Exacerbating factors: swallowing Relieving factors: nothing Associated symptoms: Reports nasal congestion; Deny abdominal pain, chest pain, ear or mastoid pain, fever(s), headache(s), nausea, sinus pain or vomiting Treatments prior to arrival: none Review of Systems Const: Reports: malaise; Denies: fever(s), body aches, change in appetite or change in weight Eyes: Denies: change in vision, blurry vision, photophobia, eye discomfort or eye discharge ENMT: Reports: throat pain, odynophagia and nasal congestion; Denies: enlarged tonsils, swelling of lips/tongue, oral sores, ear or mastoid pain, ear discharge, nasal discharge, post nasal drip or sinus pain Card: Denies: chest pain Resp: Reports: productive cough and chest congestion; Denies: dyspnea, non-productive cough, wheezing, stridor, pain on inspiration or hemoptysis GI: Denies: abdominal pain, nausea or vomiting Musc: Denies: neck pain Skin/Breast: Denies: rash Neuro: Denies: headache(s) All/Imm: Denies: facial swelling or seasonal rhinorrhea PFSH ED PFSH: Medical History Asthma Chronic pelvic pain in female Surgical History S/P tonsillectomy Family History Mother Hypertension Thyroid condition Denies family history of Colon cancer Ovarian cancer Diabetes CAD (coronary artery disease) Clotting disorder Hyperlipidemia Breast cancer Anesthesia complication Bleeding disorder Uterine cancer Stroke Social History Smoking and tobacco status: current every day smoker cigarettes Packs smoked per day: 1 Alcohol intake: never Female Reproductive History: Date of last menstrual period: 12/23/20 Physical Exam Const: COMMON NORMALS: no acute distress and patient oriented x3 GENERAL APPEARANCE: cooperative ORIENTATION/CONSCIOUSNESS: Yes awake, Yes oriented to person, Yes oriented to place and Yes oriented to time HENMT: COMMON NORMALS: normocephalic, atraumatic, hearing grossly normal bilaterally, external ears normal, EAC's normal, TM's normal bilaterally, Normal external nose present, Normal nasal mucous membranes and turbinates present, moist oral mucous membranes, oropharynx normal and dentition normal HEAD & SCALP: normal to inspection, normocephalic and atraumatic FACE & SINUS: normal facial exam and sinuses nontender NOSE: Normal external nose present and Normal nasal mucous membranes and turbinates present EXTERNAL EAR: Yes external ears normal EXTERNAL AUDITORY CANAL: EAC's normal TYMPANIC MEMBRANE: TM's normal bilaterally MOUTH: Normal oral and palatal mucosa present, lip normal and tongue normal TEETH & GINGIVA: Yes fair dentition THROAT: tonsils normal, uvula midline and posterior oropharynx abnormal erythema Neck/C-Spine: COMMON NORMALS: full ROM, no lymphadenopathy and no meningeal signs GENERAL: No anterior neck swelling and No submandibular swelling Resp: COMMON NORMALS: normal respiratory effort AUSCULTATION: wheezes right upper Cardio: COMMON NORMALS: regular rate and regular rhythm RATE: regular rate RHYTHM: regular rhythm Neuro: COMMON NORMALS: patient oriented x3 SENSORIUM/ORIENTATION: Yes oriented to person, Yes oriented to place and Yes oriented to time MENINGEAL SIGNS: Yes no meningeal signs Skin: COMMON NORMALS: no rashes or lesions noted GENERAL SKIN EXAM: no rashes or lesions noted Course Vital Signs: Vital signs: Vital Signs Temperature 99.0 F 03/17/21 21:23 Pulse Rate 121 H 03/17/21 21:23 Respiratory Rate 17 03/17/21 21:23 Blood Pressure 133/87 03/17/21 21:23 Pulse Oximetry 99 03/17/21 21:23 MDM - URI/Sore Throat MDM Narrative: Medical decision making narrative: Patient is non-ill nontoxic appearing. She was initially triaged with tachycardia however during my examination patient with regular rate/rhythm. CXR is normal. Rapid COVID is negative. I don't think re-swabbing her for strep would be helpful. Will treat throat pain and cough. Recommend rest and fluids. Follow up with PCP in 3-5 days if symptoms persist. Return to ED precautions given. Lab Data: Attestation: I reviewed the patient's lab results. Labs: Lab Results 03/17/21 Range/Units 22:30 SARS-CoV-2 Ag (Rap id) Negative (Negative) Imaging Data^: CXR: My impression: NAD Discharge Plan Discharge Patient Disposition: Home Clinical Impression: Upper respiratory infection Qualifiers: URI type: unspecified viral URI Qualified Code(s): J06.9 - Acute upper respiratory infection, unspecified Condition: Stable Prescriptions: New Lidocaine Viscous 2 % solution 15 ml PO Q4H Qty: 100 RF: 0 promethazine-codeine 6.25-10 mg/5 mL syrup 5 ml PO Q6H PRN (Reason: cough) Qty: 118 RF: 0 No Action ferrous sulfate [Feosol] 325 mg (65 mg iron) tablet 325 mg PO DAILY RF: 0 hydrocodone-acetaminophen 5-325 mg tablet 1 tab PO Q6H PRN (Reason: pain) Qty: 12 RF: 0 albuterol sulfate 2.5 mg /3 mL (0.083 %) solution for nebulization 2.5 mg INHALATION Q4H PRN (Reason: shortness of breath or wheezing) Qty: 180 RF: 0 albuterol sulfate [ProAir HFA] 90 mcg/actuation HFA aerosol inhaler 2 puff INHALATION Q4H PRN (Reason: Shortness Of Breath) RF: 0 ibuprofen 800 mg tablet 800 mg PO TID PRN (Reason: pain) Qty: 60 RF: 0 [place] 5-325 mg tablet 1 tab PO Q4H PRN (Reason: pain) Qty: 20 RF: 0 Discharge Orders: Discharge ED (Routine); Ordered 03/17/21 Ordered By: Suzette Nava Referrals: Eddie Chiu MD [Primary Care Provider] - Patient Instructions: Upper Respiratory Infection (ED), Upper Respiratory Infection - Adult Coding Level of Care Code 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
[2021-03-17 23:00] LABS: SARS Covid-2 Antigen Negative (Negative)
== END 2021-03-17 23:47 | disposition home or self-care (01) ==
PROVIDERS: Emergency Provider Physician Assistant; PCP Family Medicine
DX: J06.9 Acute upper respiratory infection, unspecified (principal); F17.210 Nicotine dependence, cigarettes, uncomplicated
CPT/HCPCS: 71045; 87426; 99282

== ENCOUNTER 2022-01-04 20:41 | Emergency (ER) | payer MEDICAID, SELFPAY ==
--- NOTE | 2022-01-04 20:44 | CTR_ITS ---
PROCEDURE INFORMATION: Exam: CT Head Without Contrast Exam date and time: 01/04/2022 9:09 PM Age: 21 years old Clinical indication: Injury or trauma; Fall; Blunt trauma (contusions or hematomas); Without loss of consciousness; Patient HX: Bent over bumping head on a bar denies loc C/O ARTEAGA w n/v TECHNIQUE: Imaging protocol: Computed tomography of the head without contrast. Radiation optimization: All CT scans at this facility use at least one of these dose optimization techniques: automated exposure control; mA and/or kV adjustment per patient size (includes targeted exams where dose is matched to clinical indication); or iterative reconstruction. COMPARISON: No relevant prior studies available. RADIATION DOSE METRICS: Total DLP (mGy-cm): 899.55 FINDINGS: Brain: Normal. No hemorrhage. Unremarkable white matter. No mass effect. Cerebral ventricles: No ventriculomegaly. Paranasal sinuses: Visualized sinuses are unremarkable. No fluid levels. Mastoid air cells: Visualized mastoid air cells are well aerated. Bones/joints: Unremarkable. No acute fracture. Soft tissues: Unremarkable. CT/CT head wo con* [id number] IMPRESSION: No acute intracranial abnormality.
[2022-01-04 20:47] VITALS: BP 119/68; PULSE 91; RESP 16; TEMP 36.7; O2SAT 95; BMI 23.3
--- NOTE | 2022-01-04 20:54 | W.ED.DIZZY ---
HPI - Dizziness General: Chief Complaint: Dizziness Stated Complaint: Injury Hit Head\Dizzy Time Seen by Provider: 01/04/22 20:51 Source: patient Mode of arrival: ambulatory Limitations: no limitations History of Present Illness: HPI Narrative: 21-year-old female states she is at work today around 2-3 states she sat down and stood up too fast and hit her head on the bar. States she had a brief loss consciousness since then she has had a headache. States she is also had nausea and 3 episodes of vomiting since then. States she has had some dizziness as well and was getting concerned as she has had a continued headache. States her headaches currently 5 out of 10. Denies any neck pain denies any worsening improving factors. Associated symptoms: Reports headache(s), nausea and vomiting; Denies chest pain or chills Review of Systems Const: Denies: fever(s), chills, body aches or change in appetite Eyes: Denies: blurry vision or eye discomfort ENMT: Denies: throat pain or dental pain Card: Denies: chest pain Resp: Denies: dyspnea GI: Reports: nausea and vomiting : Denies: dysuria Musc: Denies: neck pain or back pain Skin/Breast: Denies: rash Neuro: Reports: headache(s) Psych: Denies: depression Jimmie/Lymph: Denies: easy bruising All/Imm: Denies: urticaria PFSH ED PFSH: Medical History Asthma Chronic pelvic pain in female Surgical History S/P tonsillectomy Family History Mother Hypertension Thyroid condition Denies family history of Colon cancer Ovarian cancer Diabetes CAD (coronary artery disease) Clotting disorder Hyperlipidemia Breast cancer Anesthesia complication Bleeding disorder Uterine cancer Stroke Social History Smoking and tobacco status: current every day smoker cigarettes Packs smoked per day: 1 Alcohol intake: never Female Reproductive History: Date of last menstrual period: 12/28/21 Physical Exam Const: COMMON NORMALS: no acute distress, patient oriented x3 and healthy appearing HENMT: COMMON NORMALS: normocephalic and atraumatic HEAD & SCALP: normocephalic and atraumatic Eye: COMMON NORMALS: Equal, round and reactive pupils present and EOMs intact bilaterally PUPIL: Yes Equal, round and reactive pupils present Neck/C-Spine: COMMON NORMALS: full ROM and supple Chest: COMMONS NORMALS: normal inspection of the chest and normal palpation of entire chest wall Resp: COMMON NORMALS: normal respiratory effort, No retractions, No use of accessory muscles and clear to auscultation bilaterally AUSCULTATION: clear to auscultation bilaterally Cardio: COMMON NORMALS: regular rate, regular rhythm and No murmurs present (Cardio) RATE: regular rate RHYTHM: regular rhythm GI: COMMON NORMALS: Normal to inspection, nondistended, normoactive bowel sounds present, Soft to palpation, non-tender and no masses PALPATION: Yes Soft to palpation Extremity: COMMON NORMALS: normal to inspection and full ROM Neuro: COMMON NORMALS: patient oriented x3, moves all extremities and no focal motor deficits Psych: COMMON NORMALS: mental status grossly normal, Normal thought process present and cooperative THOUGHT PROCESS: Normal thought process present Skin: COMMON NORMALS: no rashes or lesions noted and no wounds GENERAL SKIN EXAM: no rashes or lesions noted Course Vital Signs: Vital signs: Vital Signs Temperature 98.1 F 01/04/22 20:47 Pulse Rate 91 01/04/22 20:47 Respiratory Rate 16 01/04/22 20:47 Blood Pressure 119/68 01/04/22 20:47 Pulse Oximetry 95 01/04/22 20:47 MDM - Dizziness Medical Decision Making Patient presents with closed head injury head CT here is normal she feels improved we will prescribe her Zofran for home she is to follow-up with her PCP and return if worsening. Lab Data Radiology Impressions Head CT 01/04/22 20:44 IMPRESSION: No acute intracranial abnormality. Discharge Plan Discharge Patient Disposition: Home Clinical Impression: CHI (closed head injury) Condition: Stable Prescriptions: New ondansetron 4 mg tablet,disintegrating 4 mg PO Q6H PRN (Reason: nausea and vomiting) Qty: 14 0RF No Action ferrous sulfate [Feosol] 325 mg (65 mg iron) tablet 325 mg PO DAILY 0RF hydrocodone-acetaminophen 5-325 mg tablet 1 tab PO Q6H PRN (Reason: pain) Qty: 12 0RF albuterol sulfate 2.5 mg /3 mL (0.083 %) solution for nebulization 2.5 mg INHALATION Q4H PRN (Reason: shortness of breath or wheezing) Qty: 180 0RF albuterol sulfate [ProAir HFA] 90 mcg/actuation HFA aerosol inhaler 2 puff INHALATION Q4H PRN (Reason: Shortness Of Breath) 0RF ibuprofen 800 mg tablet 800 mg PO TID PRN (Reason: pain) Qty: 60 0RF [place] 5-325 mg tablet 1 tab PO Q4H PRN (Reason: pain) Qty: 20 0RF Lidocaine Viscous 2 % solution 15 ml PO Q4H Qty: 100 0RF Rx Instructions: Mix with water and gargle for 60 seconds, then spit promethazine-codeine 6.25-10 mg/5 mL syrup 5 ml PO Q6H PRN (Reason: cough) Qty: 118 0RF Discharge Orders: Discharge ED (Routine); Ordered 01/04/22 Ordered By: Jaxon Collins Referrals: Eddie Chiu MD [Primary Care Provider] - 1-3 days Discharge Diet: Advance as tolerated Discharge Activity: Resume usual activity Patient Instructions: Concussion (ED), Head Injury (ED) Coding Level of Care Code 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
[2022-01-04 21:30] VITALS: BP 116/95; PULSE 82; RESP 18; O2SAT 98
[2022-01-04] MEDS: metoclopramide 5 mg/mL SDV 2 mL 10 MG IM (21:57)
[2022-01-04] MEDS: diphenhydrAMINE 50 mg/mL SDV 1mL IM (21:59)
[2022-01-04 22:40] VITALS: BP 121/64; PULSE 77; RESP 18; O2SAT 98
== END 2022-01-04 22:40 | disposition home or self-care (01) ==
PROVIDERS: Emergency Provider Emergency Medicine; PCP Family Medicine
DX: S09.90XA Unspecified injury of head, initial encounter (principal); W22.09XA Striking against other stationary object, initial encounter; Y92.89 Other specified places as the place of occurrence of the external cause; R11.2 Nausea with vomiting, unspecified; F17.210 Nicotine dependence, cigarettes, uncomplicated
CPT/HCPCS: 70450; 96372; 99283; J1200; J2765

== ENCOUNTER 2022-05-12 10:57 | Emergency (ER) | payer MEDICAID, SELFPAY ==
[2022-05-12] VITALS (8 sets, daily range): BP systolic 98–115; BP diastolic 59–71; PULSE 92–106; RESP 18–21; TEMP 36.8–37.1; O2SAT 96–99; BMI 24.1
--- NOTE | 2022-05-12 11:08 | ED_ITS ---
HPI - General Adult General: Chief complaint: General Medical Stated complaint: Throat swollen, Diff Breathing Time Seen by Provider: 05/12/22 11:07 History of Present Illness: Ms. Springer is a 22-year-old lady with history of asthma and tobaccoism who presents to the emergency department due to sore throat and shortness of breath. She reports onset of sore throat approximately 3 days ago and gradual. She denies specific known provoking factor. Since that time she has had worsening sore throat that is bilateral in her neck and difficulty swallowing. She also feels short of breath. Course of symptoms is worsened today. Intensity is moderate. Has had fevers and chills with T-max at home 101 ?F. Denies other signs of systemic illness. Did recently complete a course of antibiotics approximately 1 week ago for dental infection. Onset (ago): day(s) Severity: moderate Quality: aching and sharp Pain Consistency: constant Associated symptoms: Reports cough, fevers/chills and short of breath Review of Systems General: Reports: 10 or more systems reviewed and unremarkable except in HPI and below PFSH ED PFSH: Medical History Asthma Chronic pelvic pain in female Surgical History S/P tonsillectomy Family History Mother Hypertension Thyroid condition Denies family history of Colon cancer Ovarian cancer Diabetes CAD (coronary artery disease) Clotting disorder Hyperlipidemia Breast cancer Anesthesia complication Bleeding disorder Uterine cancer Stroke Social History Smoking and tobacco status: current every day smoker cigarettes Packs smoked per day: 1 Alcohol intake: never Female Reproductive History: Date of last menstrual period: 12/28/21 Physical Exam Const: COMMON NORMALS: alert GENERAL APPEARANCE: cooperative, well developed and ill appearing (Somewhat) HENMT: COMMON NORMALS: normocephalic and atraumatic HEAD & SCALP: normo cephalic and atraumatic THROAT: uvula midline, posterior oropharynx abnormal erythema; no edema and tonsils absent Eye: COMMON NORMALS: conjunctivae normal CONJUNCTIVA: Yes conjunctivae normal SCLERA: sclerae normal Neck/C-Spine: COMMON NORMALS: supple GENERAL: Yes trachea midline OTHER: Tenderness to palpation anteriorly bilaterally without skin lesions or palpable abnormality. Resp: EFFORT & INSPECTION: Yes able to speak in complete sentences AUSCULTATION: diminished lung sounds Cardio: COMMON NORMALS: regular rate and regular rhythm RATE: regular rate RHYTHM: regular rhythm GI: COMMON NORMALS: Soft to palpation PALPATION: Yes Soft to palpation and No Tenderness to palpation present (GI) Extremity: GENERAL: Yes normal exam except as noted and No edema Neuro: COMMON NORMALS: moves all extremities SENSORIUM/ORIENTATION: Yes alert and No Orientation impaired Psych: COMMON NORMALS: mental status grossly normal and Normal thought process present THOUGHT PROCESS: Normal thought process present Course ED course: - Patient was seen and evaluated by me at bedside - Patient placed on cardiac monitors, IV access obtained - Initial evaluation notable for exam as above - Labs and xrays personally interpreted by me -Steroids, fluids, analgesia, RT treatment ordered. - Labs notable for leukocytosis, normal hemoglobin. Metabolic panel with mild evidence of dehydration. Strep and COVID-negative. - Imaging notable for no lobar consolidation or pneumothorax on chest x-ray. Given clinical appearance as well as leukocytosis and heart rate greater than 90 additional imaging is warranted. CT shows evidence of lingual and palatine tonsil as well as adenoids. No evidence of deep space infection. - Upon serial reexamination after treatment the patient was improved - Based on patient history, evaluation, and testing as interpreted the most likely cause of the patient's condition is tonsillitis - The results of ED evaluation were discussed with the patient including prescriptions and/or symptomatic cares (if applicable) including appropriate and responsible use, followup plan, and return precautions. The patient verbalized understanding and felt safe for discharge. - Patient discharged in satisfactory condition. Note: Click bubbles or prepopulated ingram in note writing are used for assistance with data collection and billing and are inherently more limited than narrative and other text portions of this note. Please use narrative for additional clinical history and defer to narrative/free test for any case of contradictory information. If information appears in only free text or click bubble it should be considered present or absent as reported. Please contact note show card writer for clarifications of clinical information or contradictory information. MDM is a brief summary, contradictory or erroneous seeming information should be clarified and full note should be reviewed. Vital Signs: Vital signs: Vital Signs Temperature 98.3 F 05/12/22 11:21 Pulse Rate 92 05/12/22 16:07 Respiratory Rate 18 05/12/22 11:32 Blood Pressure 99/59 05/12/22 16:07 Pulse Oximetry 96 05/12/22 16:07 Oxygen Delivery Me thod 05/12/22 16:01 MDM - General Adult Medical Decision Making 22-year-old lady presenting with sore throat and respiratory symptoms. Improved with treatment. Imaging notable for tonsillitis. Plan to treat outpatient with antibiotics, strict return precautions given. Medical Records I reviewed the patient's medical records. Lab Data I reviewed the patient's lab results. : 05/12/22 11:31 05/12/22 11:31 Radiology Impressions Chest X-Ray 05/12/22 11:20 IMPRESSION: No acute findings. Neck CT 05/12/22 12:51 IMPRESSION: 1. Heterogeneous enhancement in the palatine tonsils, adenoids, and lingual tonsils. Recommend correlation for tonsillitis 2. No evidence of tonsillar or peritonsillar abscess. 3. A few enlarged upper cervical chain lymph nodes likely reactive in a patient this age. 4. Airway is patent. Laboratory Results WBC 18.6 10^3/uL (4.0-10.0) H 05/12/22 11:31 RBC 4.97 10^6/uL (4.1-5.3) 05/12/22 11:31 Hgb 14.6 g/dL (11.5-15.3) 05/12/22 11:31 Hct 45.6 % (37.0-47.0) 05/12/22 11:31 MCV 91.8 fl (81-99) 05/12/22 11:31 MCH 29.4 pg (28.0-34.0) 05/12/22 11:31 MCHC 32.0 g/dL (30.0-36.0) 05/12/22 11:31 RDW 13.1 % (12.1-15.1) 05/12/22 11:31 Plt Count 404 10^3/cmm (130-400) H 05/12/22 11:31 MPV 10.3 fL (7.4-10.4) 05/12/22 11:31 Neut % (Auto) 85.1 % 05/12/22 11:31 Lymph % (Auto) 7.9 % 05/12/22 11:31 [place] % (Auto) 5.1 % 05/12/22 11:31 Eos % (Auto) 1.0 % 05/12/22 11:31 Baso % (Auto) 0.4 % 05/12/22 11:31 Neut # (Auto) 15.80 10^3/uL (1.8-7.7) H 05/12/22 11:31 Lymph # (Auto) 1.5 10^3/uL (0.8-4.8) 05/12/22 11:31 [place] # (Auto) 1.0 10^3/uL (0.2-0.9) H 05/12/22 11:31 Eos # (Auto) 0.2 10^3/uL (0.0-0.8) 05/12/22 11:31 Baso # (Auto) 0.1 10^3/uL (0.0-0.1) 05/12/22 11:31 Nucleated RBC % (auto) 0 % 05/12/22 11:31 Nucleated RBCs # 0.0 /100WBC 05/12/22 11:31 Sodium 138 mmol/L (136-145) 05/12/22 11:31 Potassium 3.8 mmol/L (3.5-5.1) 05/12/22 11:31 Chloride 100 mmol/L (98-107) 05/12/22 11:31 Carbon Dioxide 22 mmol/L (22-29) 05/12/22 11:31 Anion Gap 19.8 (5-19) H 05/12/22 11:31 BUN 6 mg/dL (6-20) 05/12/22 11:31 Creatinine 0.7 mg/dL (0.5-0.9) 05/12/22 11:31 GFR Calculation 104.6 mL/min (90-130) 05/12/22 11:31 Glucose 82 mg/dL (65-115) 05/12/22 11:31 Calculated Osmolality 283 mOsm/kg (285-295) L 05/12/22 11:31 Lactic Acid 1.0 mmol/L (0.5-2.2) 05/12/22 11:31 Calcium 9.7 mg/dL (8.5-10.5) 05/12/22 11:31 SARS-CoV-2 Ag (Rapid) Negative (Negative) 05/12/22 11:56 Group A Strep Rapid Negative (Negative) 05/12/22 11:56 Discharge Plan Discharge Patient Disposition: Home Clinical Impression: Cellulitis of tonsil, Sore throat Condition: Stable Prescriptions: New ondansetron 4 mg tablet,disintegrating 4 mg PO Q8H PRN (Reason: nausea and vomiting) Qty: 15 0RF oxycodone 5 mg tablet 5 mg PO Q4H PRN (Reason: pain) Qty: 20 0RF No Action ferrous sulfate [Feosol] 325 mg (65 mg iron) tablet 325 mg PO DAILY albuterol sulfate 2.5 mg /3 mL (0.083 %) solution for nebulization 2.5 mg INHALATION Q4H PRN (Reason: shortness of breath or wheezing) Qty: 180 0RF albuterol sulfate [ProAir HFA] 90 mcg/actuation HFA aerosol inhaler 2 puff INHALATION Q4H PRN (Reason: Shortness Of Breath) ibuprofen 800 mg tablet 800 mg PO TID PRN (Reason: pain) Qty: 60 0RF Discharge Orders: Discharge ED (Routine); Ordered 05/12/22 Ordered By: Boyd James Referrals: Eddie Chiu MD [Primary Care Provider] - Discharge Diet: Advance as tolerated and Clear Liquid Discharge Activity: Increase activity as tolerated Patient Instructions: Tonsillitis (ED), Opioid Safety Activity Restrictions/Additional Instructions: Thank you for visiting the emergency department. You were seen and evaluated for sore throat and associated symptoms. The symptoms are likely related to tonsillar and posterior pharyngeal infection which will be treated with antibiotics. I would expect improvement in the next few days however please watch symptoms closely. Please follow-up with your primary care provider. Please return to the ER for any increase in shortness of breath, noisy breathing at rest, inability to tolerate oral secretions, or anything else that you are concerned about and feel needs emergency department evaluation. Coding Level of Care Code ED Labor And Delivery Registered Nurse for Sam Fwmartha 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
--- NOTE | 2022-05-12 11:20 | XRR_ITS ---
PROCEDURE INFORMATION: Exam: XR Chest Exam date and time: 05/12/2022 11:40 AM Age: 22 years old Clinical indication: Shortness of breath; Additional info: SOB TECHNIQUE: Imaging protocol: Radiologic exam of the chest. Views: 1 view. Total images: 3 COMPARISON: CR XR chest 1V portable [id number] 03/17/2021 10:28 PM FINDINGS: Lungs: Unremarkable. No consolidation. Pleural spaces: Unremarkable. No pleural effusion. No pneumothorax. Heart/Mediastinum: Unremarkable. No cardiomegaly. Bones/joints: Unremarkable. XR/XR chest 1V portable [id number] IMPRESSION: No acute findings.
[2022-05-12] MEDS: ipratropium-albuterol 3 mL Neb INHALATION (11:31)
[2022-05-12 12:09] LABS: Basophils # 0.1 10^3/uL (0.0-0.1); Basophils % 0.4 %; Eosinophils # 0.2 10^3/uL (0.0-0.8); Hematocrit 45.6 % (37.0-47.0); Hemoglobin 14.6 g/dL (11.5-15.3); Lymphocytes # 1.5 10^3/uL (0.8-4.8); Lymphocytes % 7.9 %; Mean Corpuscular Hemoglobin 29.4 pg (28.0-34.0); Mean Corpuscular Volume 91.8 fl (81-99); Mean Platelet Volume 10.3 fL (7.4-10.4); Monocytes % 5.1 %; Neutrophils % 85.1 %; Nucleated Red Blood Cells % 0 %; Platelet Count 404 10^3/cmm (130-400); Red Blood Count 4.97 10^6/uL (4.1-5.3); Red Cell Distribution Width 13.1 % (12.1-15.1); White Blood Count 18.6 10^3/uL (4.0-10.0)
[2022-05-12] MEDS: sodium chloride 0.9% 1,000 ML 999 ML IV (12:21)
[2022-05-12] MEDS: ketorolac 30 mg/mL INJ 15 MG IVP (12:23)
[2022-05-12] MEDS: dexamethasone 10 mg/mL INJ IVP (12:26)
[2022-05-12 12:36] LABS: Anion Gap 19.8 (5-19); Blood Urea Nitrogen 6 mg/dL (6-20); Calcium 9.7 mg/dL (8.5-10.5); Carbon Dioxide 22 mmol/L (22-29); Chloride 100 mmol/L (98-107); Glomerular Filtration Rate 104.6 mL/min (90-130); Glucose 82 mg/dL (65-115); Osmolality Calculated 283 mOsm/kg (285-295); Potassium 3.8 mmol/L (3.5-5.1); Sodium 138 mmol/L (136-145)
--- NOTE | 2022-05-12 12:51 | CT_ITS ---
WS: [id number] CT NECK TECHNIQUE: Contrast-enhanced CT of the neck with coronal and sagittal reformatted images. CLINICAL INFORMATION: neck pain/sore throat, eval deep tracking infection COMPARISON: None. DLP: 321.[address] scans at [facility] use at least one of these dose optimization techniques: automated e xposure control; mA and/or kV adjustment per patient size (includes targeted exams where dose is matc hed to clinical indication); or iterative reconstruction. FINDINGS: Heterogeneous enhancement in the palatine tonsils, adenoids, and lingual tonsils. Recommend correlati on for tonsillitis. No evidence of tonsillar or peritonsillar abscess. Airway is patent. Oropharynx i s patent. Normal parapharyngeal fat. Normal epiglottis. Subglottic airway is patent. Normal submandib ular glands. Normal parotid glands. A few enlarged upper cervical chain lymph nodes likely reactive i n a patient this age.Visualized lung apices are normal. CT/CT neck w con* [id number] IMPRESSION: 1. Heterogeneous enhancement in the palatine tonsils, adenoids, and lingual to nsils. Recommend correlation for tonsillitis 2. No evidence of tonsillar or peritonsillar abscess. 3. A few enlarged upper cervical chain lymph nodes likely reactive in a patien t this age. 4. Airway is patent.
[2022-05-12 12:54] LABS: SARS Covid-2 Antigen Negative (Negative)
[2022-05-12 13:43] LABS: Rapid Strep A Test Negative (Negative)
[2022-05-12] MEDS: iohexol 350 mg/mL 100 mL Btl IV (14:40)
[2022-05-12] MEDS: ondansetron 2 mg/ML SDV 2 mL 4 MG IVP (15:57)
[2022-05-12] MEDS: oxyCODONE 5 mg IR Tab/Cap PO (15:57)
[2022-05-12] MEDS: clindamycin 150 mg Capsule 300 MG PO (15:57)
== END 2022-05-12 16:08 | disposition home or self-care (01) ==
PROVIDERS: Emergency Provider Emergency Medicine; PCP Family Medicine
DX: J36 Peritonsillar abscess (principal); Z20.822 Contact with and (suspected) exposure to COVID-19; F17.210 Nicotine dependence, cigarettes, uncomplicated
CPT/HCPCS: 36415; 70491; 71045; 80048; 83605; 85025; 87040; 87081; 87426; 87880; 94640; 96361; 96374; 96375; 99285; J1100; J1885; J2405; J7030; Q9967

== ENCOUNTER 2022-06-29 13:54 | Emergency (ER) | payer MEDICAID, SELFPAY ==
[2022-06-29 13:58] VITALS: BP 124/80; PULSE 75; RESP 16; TEMP 36.3; O2SAT 98; BMI 25.0
--- NOTE | 2022-06-29 15:52 | W.ED.DENTAL ---
HPI - Dental/Oral General: Chief complaint: Dental/Oral Stated complaint: jaw swelling Time Seen by Provider: 06/29/22 15:38 History of Present Illness: Patient is a 22-year-old female comes to the ED with dental pain and swelling. Patient has a chipped tooth in her bottom right jaw. She says last night she started developing some pain in right lower jaw around chipped tooth. This morning she had some swelling in her right lower jaw. Denies any nausea/vomiting, fevers, chills, trouble breathing or any other symptoms. She rates her pain currently a 5 out of 10. Associated symptoms: Denies fever(s) or odynophagia Review of Systems Const: Denies: fever(s), chills or fatigue Eyes: Denies: change in vision or eye discomfort ENMT: Reports: dental pain; Denies: throat pain, odynophagia, nasal discharge or nasal congestion Card: Denies: chest pain, palpitations, edema, swelling of feet/ankles, dyspnea on exertion or orthopnea Resp: Denies: dyspnea, productive cough or non-productive cough GI: Denies: abdominal pain, nausea, vomiting, diarrhea, constipation or hematochezia : Denies: flank pain, dysuria or hematuria Musc: Denies: neck pain, back pain or extremity swelling Skin/Breast: Denies: rash or new lesions Neuro: Denies: headache(s), numbness in extremities or weakness in extremities PFS ED PFSH: Medical History Asthma Chronic pelvic pain in female Surgical History S/P tonsillectomy Family History Mother Hypertension Thyroid condition Denies family history of Colon cancer Ovarian cancer Diabetes CAD (coronary artery disease) Clotting disorder Hyperlipidemia Breast cancer Anesthesia complication Bleeding disorder Uterine cancer Stroke Social History Smoking and tobacco status: current every day smoker cigarettes Packs smoked per day: 1 Alcohol intake: never Female Reproductive History: Date of last menstrual period: 06/01/22 Physical Exam Const: COMMON NORMALS: no acute distress, patient oriented x3 and alert GENERAL APPEARANCE: cooperative HENMT: COMMON NORMALS: normocephalic HEAD & SCALP: normocephalic MOUTH: Normal oral and palatal mucosa present TEETH & GINGIVA: Yes abnormal tooth and associated gingiva lower right second bicuspid tender and with associated gingival edema THROAT: posterior oropharynx normal and uvula midline Neck/C-Spine: COMMON NORMALS: supple GENERAL: Yes normal visual inspection Resp: COMMON NORMALS: normal respiratory effort, No retractions, No use of accessory muscles and clear to auscultation bilaterally AUSCULTATION: clear to auscultation bilaterally Cardio: COMMON NORMALS: regular rate, regular rhythm, S1 normal heart sound present, S2 normal heart sound present, No gallops present (Cardio), No clicks present (Cardio), No murmurs present (Cardio) and Peripheral pulses 2+ throughout RATE: regular rate RHYTHM: regular rhythm HEART SOUNDS: S1 normal heart sound present and S2 normal heart sound present PERIPHERAL PULSES: Peripheral pulses 2+ throughout GI: COMMON NORMALS: Normal to inspection, nondistended, normoactive bowel sounds present, Soft to palpation, non-tender and no masses PALPATION: Yes Soft to palpation : COMMON NORMALS: Yes no CVA tenderness BLADDER/KIDNEY EXAM: Yes no CVA tenderness Back/Pelvis: COMMON NORMALS: no CVA tenderness Extremity: COMMON NORMALS: normal to inspection Neuro: COMMON NORMALS: patient oriented x3 SENSORIUM/ORIENTATION: Yes alert GAIT: Yes Normal gait present Skin: GENERAL SKIN EXAM: dry skin Course Vital Signs: Vital signs: Vital Signs Temperature 97.4 F L 06/29/22 13:58 Pulse Rate 75 06/29/22 13:58 Respiratory Rate 16 06/29/22 13:58 Blood Pressure 124/80 06/29/22 13:58 Pulse Oximetry 98 06/29/22 13:58 Oxygen Delivery Me thod 06/29/22 13:58 [facility] - Dental/Oral Medical Decision Making Patient is a 22-year-old female comes to the ED with dental pain and swelling. Patient has a chipped tooth in her bottom right jaw. She says last night she started developing some pain in right lower jaw around chipped tooth. This morning she had some swelling in her right lower jaw. Denies any nausea/vomiting, fevers, chills, trouble breathing or any other symptoms. Patient has some lower right second bicuspid tenderness and surrounding gingival edema. Vitals are stable. Patient diagnosed with dental infection and was given a dose of clindamycin and Council here in the ED. Patient was discharged home with ibuprofen, clindamycin and lidocaine viscus. Told to follow-up with dentist as soon as possible to have dental pain evaluated. Patient understood and agreed with plan. Discharge Plan Discharge Patient Disposition: Home Clinical Impression: Dental infection Condition: Stable Prescriptions: New clindamycin HCl 150 mg capsule 300 mg PO QID 7 Days Qty: 56 0RF ibuprofen 600 mg tablet 600 mg PO Q8H PRN (Reason: pain) Qty: 20 0RF Lidocaine Viscous 2 % solution 1 applic mucous membrane TID PRN (Reason: pain) Qty: 100 0RF No Action ferrous sulfate [Feosol] 325 mg (65 mg iron) tablet 325 mg PO DAILY albuterol sulfate 2.5 mg /3 mL (0.083 %) solution for nebulization 2.5 mg INHALATION Q4H PRN (Reason: shortness of breath or wheezing) Qty: 180 0RF albuterol sulfate [ProAir HFA] 90 mcg/actuation HFA aerosol inhaler 2 puff INHALATION Q4H PRN (Reason: Shortness Of Breath) ibuprofen 800 mg tablet 800 mg PO TID PRN (Reason: pain) Qty: 60 0RF ondansetron 4 mg tablet,disintegrating 4 mg PO Q8H PRN (Reason: nausea and vomiting) Qty: 15 0RF oxycodone 5 mg tablet 5 mg PO Q4H PRN (Reason: pain) Qty: 20 0RF Discharge Orders: Discharge ED (Routine); Ordered 06/29/22 Ordered By: Jerome Weldon Referrals: Eddie Chiu MD [Primary Care Provider] - Discharge Diet: Regular Discharge Activity: Increase activity as tolerated Activity Restrictions/Additional Instructions: Follow-up with dentist as soon as possible to have dental pain evaluated. Take medications as prescribed. Return to the ER or your medical provider if condition worsens. Please read and understand discharge instructions. Thank you for choosing [facility] for your healthcare needs today. Please realize this is an emergency room and that we are providing you with a medical screening exam and this may not be complete and all inclusive of all the testing and or work up that you may need to determine your ailment or severity of your illness. It is very important that you follow up as instructed or that you return to the Emergency Department should you have concerns or if your condition changes or worsens in any way. 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
[2022-06-29] MEDS: HYDROcodone-acetaminophen 7.5-325 mg Tablet 1 TAB PO (16:04)
[2022-06-29] MEDS: clindamycin 150 mg Capsule 300 MG PO (16:04)
== END 2022-06-29 16:08 | disposition home or self-care (01) ==
PROVIDERS: Emergency Provider Physician Assistant; PCP Family Medicine
DX: K04.7 Periapical abscess without sinus (principal)
CPT/HCPCS: 99283

== ENCOUNTER 2023-01-06 19:15 | Emergency (ER) | payer MEDICAID, SELFPAY ==
[2023-01-06 19:18] VITALS: BP 110/74; PULSE 83; RESP 20; TEMP 36.7; O2SAT 98; BMI 22.4
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
[2023-01-06] MEDS: metoclopramide 5 mg/mL SDV 2 mL 10 MG IVP (20:18)
[2023-01-06] MEDS: ketorolac 30 mg/mL INJ 15 MG IVP (20:19)
[2023-01-06] MEDS: sodium chloride 0.9% 1,000 ML 999 ML IV (20:19)
[2023-01-06] MEDS: HYDROcodone-acetaminophen 5-325 mg Tablet 1 TAB PO (21:18)
== END 2023-01-06 21:17 | disposition home or self-care (01) ==
PROVIDERS: Emergency Provider Nurse Practitioner Family; PCP Family Medicine
DX: Z04.1 Encounter for examination and observation following transport accident (principal); R51.9 Headache, unspecified; F17.210 Nicotine dependence, cigarettes, uncomplicated; V49.50XA Passenger injured in collision with unspecified motor vehicles in traffic accident, initial encounter
CPT/HCPCS: 70450; 96361; 96374; 96375; 99285; J1885; J2765; J7030

== ENCOUNTER 2023-01-11 23:08 | Emergency (ER) | payer MEDICAID, SELFPAY ==
[2023-01-11 23:10] VITALS: BP 105/70; PULSE 80; RESP 16; TEMP 36.6; O2SAT 98; BMI 22.9
[2023-01-12] MEDS: clindamycin 150 mg Capsule 300 MG PO (01:18)
[2023-01-12] MEDS: ketorolac 30 mg/mL INJ IM (01:21)
[2023-01-12] MEDS: HYDROcodone-acetaminophen 5-325 mg Tablet 1 TAB PO (01:22)
--- NOTE | 2023-01-12 01:31 | W.ED.DENTAL ---
HPI - Dental/Oral General: Chief complaint: Dental/Oral Stated complaint: Two Absessed Teeth Time Seen by Provider: 01/12/23 00:35 Source: patient Mode of arrival: ambulatory History of Present Illness: Patient presents emergency department today for evaluation treatment of dental pain to the left lower jaw. Patient has a history of recurrent dental pain to the right lower jaw due to broken teeth which is documented over the last few months in her chart for multiple evaluations. Patient indicates that about a week ago she broke a molar on the left side and, the last 24 to 48 hours has had swelling and pain. She states she has been taking [id number] medication without improvement of her discomfort. She states she is scheduled to go up to [facility] for dental extraction. Review of Systems General: Reports: 10 or more systems reviewed and unremarkable except in HPI and below PFSH ED PFSH: Medical History Asthma Chronic pelvic pain in female Surgical History S/P tonsillectomy Family History Mother Hypertension Thyroid condition Denies family history of Colon cancer Ovarian cancer Diabetes CAD (coronary artery disease) Clotting disorder Hyperlipidemia Breast cancer Anesthesia complication Bleeding disorder Uterine cancer Stroke Social History Smoking and tobacco status: current every day smoker cigarettes Packs smoked per day: 1 Alcohol intake: never Substance/Drug Use: never Physical Exam Const: COMMON NORMALS: no acute distress, patient oriented x3 and alert HENMT: OTHER: Patient has findings of concern for infection to both the right lower jaw and the left lower jaw though, patient has chronic thickening of the gum on the right side which I suspect is due to recurrent and chronic inflammation in the area. However, patient has erythema noted to the gumline of the right lower jaw and a tooth that is obviously broken in the posterior portion. No signs of active swelling concerning for active abscess. Eye: COMMON NORMALS: Equal, round and reactive pupils present, EOMs intact bilaterally and conjunctivae normal CONJUNCTIVA: Yes conjunctivae normal PUPIL: Yes Equal, round and reactive pupils present Neck/C-Spine: COMMON NORMALS: no JVD Lymph: LYMPHATIC: no lymphadenopathy noted Resp: COMMON NORMALS: normal respiratory effort, No retractions and No use of accessory muscles Cardio: COMMON NORMALS: no JVD and regular rate RATE: regular rate : COMMON NORMALS: Yes no CVA tenderness BLADDER/KIDNEY EXAM: Yes no CVA tenderness Back/Pelvis: COMMON NORMALS: no CVA tenderness, thoracic and lumbar spine normal to inspection and thoraco-lumbar ROM normal Extremity: COMMON NORMALS: normal to inspection, full ROM and no pedal edema Neuro: COMMON NORMALS: patient oriented x3 SENSORIUM/ORIENTATION: Yes alert Skin: COMMON NORMALS: no rashes or lesions noted and turgor normal GENERAL SKIN EXAM: no rashes or lesions noted and turgor normal Course Vital Signs: Vital signs: Vital Signs Temperature 97.9 F 01/11/23 23:10 Pulse Rate 80 01/11/23 23:10 Respiratory Rate 16 01/11/23 23:10 Blood Pressure 105/70 01/11/23 23:10 Pulse Oximetry 98 01/11/23 23:10 Oxygen Delivery Me thod Room Air 01/11/23 23:10 MDM - Dental/Oral Medical Decision Making Patient presents today for evaluation treatment of dental pain. Patient has known chronic dental issues to the right lower jaw but, has recently broken her tooth on the left lower jaw and is complaining of pain in this area today. Patient was given a one-time treatment of pain medication here in the ER as well as NSAID and first dose of antibiotics. Patient was given a prescription to continue antibiotic treatment-especially since she is post to be having an upcoming appointment with [facility] for dental extraction. Patient was given Toradol and viscous lidocaine and recommended she apply dental putty over the area of fracture to help with pain as well. Differential Diagnosis Likely dental caries, toothache, dental abscess and fracture of tooth Discharge Plan Discharge Patient Disposition: Home Clinical Impression: Fracture of tooth, Dental abscess Condition: Stable Prescriptions: New Cleocin HCl 300 mg capsule 300 mg PO Q8H 10 Days Qty: 30 0RF Lidocaine Viscous 2 % solution 1 applic mucous membrane Q12H PRN (Reason: pain) Qty: 100 0RF ketorolac 10 mg tablet 10 mg PO Q8H PRN (Reason: pain) 5 Days Qty: 15 0RF No Action ferrous sulfate [Feosol] 325 mg (65 mg iron) tablet 325 mg PO DAILY loratadine 10 mg tablet 10 mg PO DAILY Qty: 30 0RF clindamycin HCl 150 mg capsule 300 mg PO TID 10 Days Qty: 60 0RF albuterol sulfate 2.5 mg /3 mL (0.083 %) solution for nebulization 2.5 mg INHALATION Q4H PRN (Reason: shortness of breath or wheezing) Qty: 180 0RF albuterol sulfate [ProAir HFA] 90 mcg/actuation HFA aerosol inhaler 2 puff INHALATION Q4H PRN (Reason: Shortness Of Breath) ibuprofen 800 mg tablet 800 mg PO TID PRN (Reason: pain) Qty: 60 0RF Discharge Orders: Discharge ED (Routine); Ordered 01/12/23 Ordered By: Ashley Vega Referrals: Eddie Chiu MD [Primary Care Provider] - Discharge Diet: Advance as tolerated Discharge Activity: Resume usual activity Patient Instructions: Dental Abscess (ED) Activity Restrictions/Additional Instructions: We are starting you back on antibiotics. We have also given you various medications to help with your pain. Keep your upcoming appointment with Waqas Sinclair for more definitive care of your dental issues. In the meantime, I also recommend purchasing an [id number] dental putty from [employer] or [employer] to help cover the opening on the broken tooth that is allowing access to your nerve. This can help significantly decrease the amount of pain you are experiencing. 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
== END 2023-01-12 01:52 | disposition home or self-care (01) ==
PROVIDERS: Emergency Provider Physician Assistant; PCP Family Medicine
DX: S02.5XXA Fracture of tooth (traumatic), initial encounter for closed fracture (principal); K04.7 Periapical abscess without sinus; F17.210 Nicotine dependence, cigarettes, uncomplicated; X58.XXXA Exposure to other specified factors, initial encounter
CPT/HCPCS: 96372; 99284; J1885

== ENCOUNTER 2023-01-19 23:04 | Emergency (ER) | payer MEDICAID, SELFPAY ==
[2023-01-19 23:07] VITALS: BP 98/53; PULSE 86; RESP 15; TEMP 36.7; O2SAT 100
--- NOTE | 2023-01-19 23:15 | ED_ITS ---
HPI - Dental/Oral General: Chief complaint: Dental/Oral Stated complaint: dental pain Time Seen by Provider: 01/19/23 23:05 Source: patient Mode of arrival: ambulatory Limitations: no limitations History of Present Illness: 22-year-old female states she been having dental pain over the last 2 weeks tender right lower molar she is currently on clindamycin she sees a dentist in 2 days states her pain is increased she denies any difficulty swallowing she has no trismus no fevers denies any worsening improving factors. Associated symptoms: Denies fever(s) Review of Systems Const: Denies: fever(s) ENMT: Reports: mouth pain Card: Denies: chest pain GI: Denies: vomiting Musc: Denies: neck pain Skin/Breast: Denies: rash Neuro: Denies: headache(s) PFSH ED PFSH: Medical History Asthma Chronic pelvic pain in female Surgical History S/P tonsillectomy Family History Mother Hypertension Thyroid condition Denies family history of Colon cancer Ovarian cancer Diabetes CAD (coronary artery disease) Clotting disorder Hyperlipidemia Breast cancer Anesthesia complication Bleeding disorder Uterine cancer Stroke Social History Smoking and tobacco status: current every day smoker cigarettes Packs smoked per day: 1 Alcohol intake: never Substance/Drug Use: never Physical Exam Const: COMMON NORMALS: no acute distress and patient oriented x3 HENMT: COMMON NORMALS: normocephalic HEAD & SCALP: normocephalic OTHER: Tenderness over right lower molar no obvious abscess or trismus Eye: COMMON NORMALS: conjunctivae normal CONJUNCTIVA: Yes conjunctivae normal Neck/C-Spine: COMMON NORMALS: supple Chest: COMMONS NORMALS: normal inspection of the chest Resp: COMMON NORMALS: normal respiratory effort GI: INSPECTION: Yes normal to inspection Extremity: COMMON NORMALS: normal to inspection Neuro: COMMON NORMALS: patient oriented x3 Psych: COMMON NORMALS: mental status grossly normal Skin: COMMON NORMALS: no rashes or lesions noted GENERAL SKIN EXAM: no rashes or lesions noted Course Vital Signs: Vital signs: Vital Signs Temperature 98.0 F 01/19/23 23:07 Pulse Rate 86 01/19/23 23:07 Respiratory Rate 15 01/19/23 23:07 Blood Pressure 98/53 01/19/23 23:07 Pulse Oximetry 100 01/19/23 23:07 Oxygen Delivery Me thod Room Air 01/19/23 23:07 MDM - Dental/Oral Medical Decision Making Patient presents here with a tooth ache no abscess or trismus she is currently on clindamycin we will give her [place] here prescribe her Naprosyn she has a dental appointment in 2 days is to follow-up then return if worsening Discharge Plan Discharge Patient Disposition: Home Clinical Impression: Pain, dental Condition: Stable Prescriptions: New naproxen [Naprosyn] 500 mg tablet 500 mg PO BID PRN (Reason: pain) Qty: 20 0RF No Action ferrous sulfate [Feosol] 325 mg (65 mg iron) tablet 325 mg PO DAILY loratadine 10 mg tablet 10 mg PO DAILY Qty: 30 0RF clindamycin HCl 150 mg capsule 300 mg PO TID 10 Days Qty: 60 0RF albuterol sulfate 2.5 mg /3 mL (0.083 %) solution for nebulization 2.5 mg INHALATION Q4H PRN (Reason: shortness of breath or wheezing) Qty: 180 0RF albuterol sulfate [ProAir HFA] 90 mcg/actuation HFA aerosol inhaler 2 puff INHALATION Q4H PRN (Reason: Shortness Of Breath) ibuprofen 800 mg tablet 800 mg PO TID PRN (Reason: pain) Qty: 60 0RF Cleocin HCl 300 mg capsule 300 mg PO Q8H 10 Days Qty: 30 0RF Lidocaine Viscous 2 % solution 1 applic mucous membrane Q12H PRN (Reason: pain) Qty: 100 0RF Discharge Orders: Discharge ED (Routine); Ordered 01/19/23 Ordered By: Jaxon Collins Referrals: Eddie Chiu MD [Primary Care Provider] - Discharge Diet: Advance as tolerated Discharge Activity: Resume usual activity Patient Instructions: Toothache (ED) 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
[2023-01-19] MEDS: HYDROcodone-acetaminophen 5-325 mg Tablet 1 TAB PO (23:21)
== END 2023-01-19 23:23 | disposition home or self-care (01) ==
PROVIDERS: Emergency Provider Emergency Medicine; PCP Family Medicine
DX: K08.89 Other specified disorders of teeth and supporting structures (principal); F17.210 Nicotine dependence, cigarettes, uncomplicated
CPT/HCPCS: 99283

== ENCOUNTER 2023-03-09 23:23 | Emergency (ER) | payer MEDICAID, SELFPAY ==
[2023-03-09 23:31] VITALS: BP 113/72; PULSE 74; RESP 16; TEMP 37; O2SAT 98; BMI 22.4
--- NOTE | 2023-03-09 23:35 | ED_ITS ---
HPI - Dental/Oral General: Chief complaint: Dental/Oral Stated complaint: mouth pain Time Seen by Provider: 03/09/23 23:25 History of Present Illness: 22-year-old female comes in today with complaints of abscess to the right lower second molar. Patient was seen by a dentist last week and was put on azithromycin and scheduled for a follow-up appointment. Patient arrived at the dentist at that time to have a tooth pulled but due to the abscess they were unable to do it. Patient just completed a round of clindamycin prior to the azithromycin. Patient appears nontoxic. Patient appears in mild to moderate pain. Associated symptoms: Denies fever(s) Review of Systems General: Reports: 10 or more systems reviewed and unremarkable except in HPI and below Const: Denies: fever(s) ENMT: Reports: dental pain Resp: Denies: dyspnea GI: Denies: vomiting Musc: Denies: back pain Skin/Breast: Denies: rash PFSH ED PFSH: Medical History Asthma Chronic pelvic pain in female Surgical History S/P tonsillectomy Family History Mother Hypertension Thyroid condition Denies family history of Colon cancer Ovarian cancer Diabetes CAD (coronary artery disease) Clotting disorder Hyperlipidemia Breast cancer Anesthesia complication Bleeding disorder Uterine cancer Stroke Social History Smoking and tobacco status: current every day smoker cigarettes Packs smoked per day: 1 Alcohol intake: never Substance/Drug Use: never Physical Exam Const: COMMON NORMALS: alert HENMT: COMMON NORMALS: normocephalic HEAD & SCALP: normocephalic MOUTH: Normal oral and palatal mucosa present TEETH & GINGIVA: Yes abnormal tooth and associated gingiva (Second molar right lower jaw lateral abscess) Neck/C-Spine: COMMON NORMALS: full ROM Resp: COMMON NORMALS: normal respiratory effort Cardio: COMMON NORMALS: regular rate RATE: regular rate Back/Pelvis: COMMON NORMALS: thoracic and lumbar spine normal to inspection Extremity: COMMON NORMALS: normal to inspection Neuro: SENSORIUM/ORIENTATION: Yes alert Skin: COMMON NORMALS: turgor normal GENERAL SKIN EXAM: turgor normal Course Vital Signs: Vital signs: Vital Signs Temperature 98.6 F 03/10/23 00:16 Pulse Rate 97 03/10/23 00:16 Respiratory Rate 16 03/10/23 00:16 Blood Pressure 113/72 03/10/23 00:16 Pulse Oximetry 97 03/10/23 00:16 [facility] - Dental/Oral Medical Decision Making 22-year-old female comes in today with complaints of dental pain. On exam we note an abscess to the second molar right lower jaw. Posterior pharynx is normal. Respirations are even lungs are clear to auscultation. Vital signs are normal. Differential diagnosis includes malingering, dental caries, dental pain, dental abscess. Patient does have a noted gingival abscess. Patient already been on clindamycin and azithromycin. We will start patient on doxycycline and Flagyl and continue on it for 10 days or until follow-up with her dentist for removal of tooth. Patient was written for 6 tablets of hydrocodone for her severe pain. Patient was recommended otherwise use acetaminophen and ibuprofen for control of pain. Patient reported understanding and agreed to plan. Discharge Plan Discharge Patient Disposition: Home Clinical Impression: Dental abscess Condition: Stable Prescriptions: New hydrocodone-acetaminophen 5-325 mg tablet 1 tab PO Q8H PRN (Reason: pain (scale score 7-10)) Qty: 6 0RF doxycycline monohydrate 100 mg capsule 100 mg PO BID 10 Days Qty: 20 0RF metronidazole 500 mg tablet 500 mg PO BID 10 Days Qty: 20 0RF No Action ferrous sulfate [Feosol] 325 mg (65 mg iron) tablet 325 mg PO DAILY loratadine 10 mg tablet 10 mg PO DAILY Qty: 30 0RF clindamycin HCl 150 mg capsule 300 mg PO TID 10 Days Qty: 60 0RF albuterol sulfate 2.5 mg /3 mL (0.083 %) solution for nebulization 2.5 mg INHALATION Q4H PRN (Reason: shortness of breath or wheezing) Qty: 180 0RF albuterol sulfate [ProAir HFA] 90 mcg/actuation HFA aerosol inhaler 2 puff INHALATION Q4H PRN (Reason: Shortness Of Breath) ibuprofen 800 mg tablet 800 mg PO TID PRN (Reason: pain) Qty: 60 0RF Lidocaine Viscous 2 % solution 1 applic mucous membrane Q12H PRN (Reason: pain) Qty: 100 0RF Naprosyn 500 mg tablet 500 mg PO BID PRN (Reason: pain) Qty: 20 0RF Discharge Orders: Discharge ED (Routine); Ordered 03/09/23 Ordered By: Joshua Wallace Referrals: Eddie Chiu MD [Primary Care Provider] - Discharge Diet: Usual diet Discharge Activity: Increase activity as tolerated Patient Instructions: Dental Abscess (ED), Opioid Safety Activity Restrictions/Additional Instructions: Drink plenty of water with medication. Activity as tolerated. Take doxycycline and metronidazole 1 tablet twice a day for the next 10 days for dental abscess. Use acetaminophen and ibuprofen to control pain. Use hydrocodone for severe pain. Use ice or heat for further pain relief. Follow-up with dentist for definitive care. Return to ED for new concerns. 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
[2023-03-09 23:37] VITALS: BP 113/72; PULSE 97; RESP 16; O2SAT 97
[2023-03-10] MEDS: metroNIDAZOLE 500 MG Tablet PO
[2023-03-10] MEDS: HYDROcodone-acetaminophen 5-325 mg Tablet 1 TAB PO
[2023-03-10] MEDS: doxycycline 100 mg Tablet PO (00:01)
[2023-03-10 00:16] VITALS: BP 113/72; PULSE 97; RESP 16; TEMP 37; O2SAT 97
== END 2023-03-10 00:18 | disposition home or self-care (01) ==
PROVIDERS: Emergency Provider Nurse Practitioner Family; PCP Family Medicine
DX: K04.7 Periapical abscess without sinus (principal)
CPT/HCPCS: 99283

== ENCOUNTER 2023-07-28 19:31 | Emergency (ER) | payer MEDICAID, SELFPAY ==
[2023-07-28 19:41] VITALS: BP 101/64; PULSE 72; RESP 16; TEMP 36.7; O2SAT 99; BMI 22.4
[2023-07-28 20:06] VITALS: BP 117/78; PULSE 75; RESP 16; O2SAT 99
[2023-07-28 20:12] LABS: HCG Qualitative Urine. Negative (Negative)
[2023-07-28 20:15] LABS: Add Urine Microscopic? YES; Bilirubin Urine Neg (Negative); Blood Urine Neg (Negative); Glucose Urine UA Norm (Normal); Ketones Urine Negative (Negative); Leukocyte Esterase Urine Trace (Negative); Nitrate Urine Negative (Negative); Protein Urine Neg (Negative); Specific Gravity, Urine 1.015 (1.005-1.030); Urine Appearance Hazy (CLEAR); Urine Color Yellow (Yellow); Urobilinogen Urine Neg (Negative); pH Urine 6.5 (5-7)
[2023-07-28 20:16] LABS: Add Urine Culture? No; Bacteria Urine 2+ /hpf; Mucus Urine 2+ /hpf; WBC Urine 0-4 /hpf (0-5)
--- NOTE | 2023-07-28 20:54 | W.ED.FEMALGU ---
HPI - Female Genitourinary General: Chief complaint: Urogenital-Female Stated complaint: vaginal pain Time Seen by Provider: 07/28/23 19:33 Source: patient Mode of arrival: ambulatory Limitations: no limitations History of Present Illness: Patient presents emergency department today for evaluation treatment of continued vaginal discharge. Chart review shows that approximately 3 weeks ago she was treated for HSV outbreak with valacyclovir. Per patient reports she was seen at an outlying clinic where they were concerned for a yeast infection and gave her 5 days of medication. She states that she continues to have discharge and vaginal itching and discomfort. She complains of some left-sided low back pain as well. She has not had fever, vomiting, or diarrhea. She indicated to the nurse she has not had any new sexual partners. Review of Systems General: Reports: 10 or more systems reviewed and unremarkable except in HPI and below PFSH ED PFSH: Medical History Asthma Chronic pelvic pain in female Surgical History S/P tonsillectomy Family History Mother Hypertension Thyroid disease Denies family history of Colon cancer Ovarian cancer Diabetes CAD (coronary artery disease) Clotting disorder Hyperlipidemia Breast cancer Anesthesia complication Bleeding disorder Uterine cancer Stroke Social History Smoking and tobacco/nicotine status: current every day tobacco/nicotine user cigarettes Packs smoked per day: 1 Alcohol intake: never Substance/Drug Use: never Physical Exam Const: COMMON NORMALS: no acute distress, average body habitus, patient oriented x3 and alert HENMT: COMMON NORMALS: normocephalic, atraumatic, hearing grossly normal bilaterally and moist oral mucous membranes HEAD & SCALP: normocephalic and atraumatic Eye: COMMON NORMALS: Equal, round and reactive pupils present, EOMs intact bilaterally and conjunctivae normal CONJUNCTIVA: Yes conjunctivae normal PUPIL: Yes Equal, round and reactive pupils present Neck/C-Spine: COMMON NORMALS: no JVD Lymph: LYMPHATIC: no lymphadenopathy noted Resp: COMMON NORMALS: normal respiratory effort, No retractions and No use of accessory muscles Cardio: COMMON NORMALS: no JVD and regular rate RATE: regular rate Back/Pelvis: COMMON NORMALS: thoraco-lumbar ROM normal and straight leg raise negative bilaterally Extremity: COMMON NORMALS: normal to inspection, full ROM and capillary refill normal OTHER: Patient is independently ambulatory and weightbearing here in the emergency department. Neuro: COMMON NORMALS: patient oriented x3 SENSORIUM/ORIENTATION: Yes alert Psych: COMMON NORMALS: mental status grossly normal, cooperative, normal affect, speech normal and activity/motor behavior normal SPEECH: Yes normal speech Course Vital Signs: Vital signs: Vital Signs Temperature 98.0 F 07/28/23 19:41 Pulse Rate 75 07/28/23 20:06 Respiratory Rate 16 07/28/23 20:06 Blood Pressure 117/78 07/28/23 20:06 Pulse Oximetry 99 07/28/23 20:06 Oxygen Delivery Me thod Room Air 07/28/23 20:06 MDM - Female Medical Decision Making Urinalysis today did show signs of bacteria but no findings of acute urinary tract infection. Patient's vaginal swab/wet prep indicated no findings of yeast, trichomonas, or clue cells however, there was bacteria noted. A gonorrhea and chlamydia test has been ordered on the patient's urine specimen but, will not have results for couple of days. After speaking with Dr. Collins, he agrees that patient should be treated for STI. We discussed her penicillin allergy but, even up-to-date confirms that treatment with a third-generation cephalosporin is appropriate in these instances. Patient was given a shot of Rocephin and a first dose of doxycycline here in the emergency department. Prescription for continued doxycycline treatment was provided to be taken to her pharmacy in the morning and continue as prescribed. Informed her we should have further results in a couple of days. 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 Patient verbalized understanding and agreement to treatment plan. Differential Diagnosis Unlikely abdominal pain, acute appendicitis, calculus of kidney, endometriosis, gastroenteritis, pancreatitis or small bowel obstruction Lab Data Laboratory Results HCG, Qual Negative (Negative) 07/28/23 19:58 Urine Color Yellow (Yellow) 07/28/23 19:58 Urine Appearance Hazy (CLEAR) A 07/28/23 19:58 Urine pH 6.5 (5-7) 07/28/23 19:58 Ur Specific [place] 1.015 (1.005-1.030) 07/28/23 19:58 Urine Protein Neg (Negative) 07/28/23 19:58 Urine Glucose (UA) Norm (Normal) 07/28/23 19:58 Urine Ketones Negative (Negative) 07/28/23 19:58 Urine Blood Neg (Negative) 07/28/23 19:58 Urine Nitrate Negative (Negative) 07/28/23 19:58 Urine Bilirubin Neg (Negative) 07/28/23 19:58 Urine Urobilinogen Neg mg/dL (Negative) 07/28/23 19:58 Ur Leukocyte Esterase Trace (Negative) H 07/28/23 19:58 Urine RBC None /hpf (0-2) 07/28/23 19:58 Urine WBC 0-4 /hpf (0-5) H 07/28/23 19:58 Ur Squamous Epith Cells 10-15 /hpf (0-5) H 07/28/23 19:58 Amorphous Sediment Not Reportable 07/28/23 19:58 Urine Bacteria 2+ /hpf (NONE) H 07/28/23 19:58 Urine Mucus 2+ /hpf 07/28/23 19:58 No radiology studies performed this visit Discharge Plan Discharge Patient Disposition: Home Clinical Impression: Vaginitis Condition: Stable Prescriptions: New doxycycline hyclate 100 mg tablet 100 mg PO BID 7 Days Qty: 14 0RF No Action ferrous sulfate [Feosol] 325 mg (65 mg iron) tablet 325 mg PO DAILY valacyclovir 1 gram tablet 1,000 mg PO BID 5 Days Qty: 10 2RF albuterol sulfate 2.5 mg /3 mL (0.083 %) solution for nebulization 2.5 mg INHALATION Q4H PRN (Reason: shortness of breath or wheezing) Qty: 180 0RF albuterol sulfate [ProAir HFA] 90 mcg/actuation HFA aerosol inhaler 2 puff INHALATION Q4H PRN (Reason: Shortness Of Breath) ibuprofen 800 mg tablet 800 mg PO TID PRN (Reason: pain) Qty: 60 0RF Discharge Orders: Discharge ED (Routine); Ordered 07/28/23 Ordered By: Ashley Vega Referrals: Eddie Chiu MD [Primary Care Provider] - Discharge Diet: Usual diet Discharge Activity: Increase activity as tolerated Patient Instructions: Chlamydia - Female, Gonorrhea - Female, Bacterial Vaginosis (ED), Trichomoniasis (ED), Yeast Infection (ED) Activity Restrictions/Additional Instructions: Urinalysis today does show signs of bacteria but does not appear to be due to a urinary tract infection. Your vaginal swab shows no signs of any residual yeast infection but there is still bacteria present. However, it is not the bacteria that causes bacterial vaginosis or trichomoniasis at this time. Because of that, we are still going to treat for the findings of bacteria while we wait for finalized testing over the next 48 hours. We provided your first doses of medication here in the emergency department tonight with the rest to be taken to your pharmacy and picked up in the morning and completed as prescribed. We recommend sexual abstinence until your full course of treatment is completed. I have provided you informational handouts for various causes of vaginal discharge, itching, pain, or dysuria for you to look over for future reference. Follow-up with your primary care or SENIOR FIRMWARE ENGINEER if needed. 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
[2023-07-28] MEDS: doxycycline 100 mg Tablet PO (20:58)
[2023-07-28] MEDS: cefTRIAXone 500 MG in water for injection-sterile 1 ML IM (20:58)
[2023-07-28 21:02] VITALS: BP 117/78; PULSE 75; RESP 16; O2SAT 99
[2023-07-30 16:00] LABS: Chlamydia Trachomatis RNA TMA NOT DETECTED (NOT DETECTED); Neisseria Gonorrhoeae RNA, TMA NOT DETECTED (NOT DETECTED)
== END 2023-07-28 21:10 | disposition home or self-care (01) ==
PROVIDERS: Emergency Provider Physician Assistant; PCP Family Medicine
DX: N76.0 Acute vaginitis (principal); F17.210 Nicotine dependence, cigarettes, uncomplicated
CPT/HCPCS: 81001; 81025; 87210; 87491; 87591; 96372; 99284; J0696

== ENCOUNTER → 2023-10-30 13:06 | Outpatient (BNVA) | payer MEDICAID, SELFPAY | PROVIDERS: PCP Family Medicine; Visit Provider Nurse Practitioner | DX: J06.9 Acute upper respiratory infection, unspecified (principal) | CPT/HCPCS: 87400 ==

== ENCOUNTER 2024-01-08 08:39 | Emergency (ER) | payer MEDICAID, SELFPAY ==
[2024-01-08 08:43] VITALS: BP 114/66; PULSE 91; RESP 18; TEMP 36.6; O2SAT 100; BMI 21.9
--- NOTE | 2024-01-08 08:51 | ECG_ITS ---
[facility] Test Date: 2024-01-08 Pat Name: Amira Springer Department: Room: Gender: Female Fiscal Agent: : [id number] Requested By: Juanjo Arevalo Order Number: [id number] Asha MD: Shorty Garrison M.D. Measurements Intervals [place] Rate: 86 P: 48 OK: 135 QRS: 59 QRSD: 93 T: -4 QT: 364 QTc: 436 Interpretive Statements SINUS RHYTHM POSSIBLE RIGHT VENTRICULAR CONDUCTION DELAY [RSR (QR) IN V1/V2] NONSPECIFIC T-WAVE ABNORMALITY Compared to ECG 03/25/2017 16:24:54 T-wave abnormality now present Sinus arrhythmia no longer present Electronically Signed On 01-08-2024 16:59:55 CDT by Shorty Garrison M.D. [id number]
--- NOTE | 2024-01-08 08:51 | XR_ITS ---
WS: [id number] Exam: XR chest 1V portable [id number] Date/Time of Exam: 01/08/2024 8:57 AM Reason For Exam: chest pain Comparison 05/12/2022. Findings: The lungs are clear and fully expanded. Costophrenic angles are sharp. No infiltrates. Bronchovascula r relief appears normal. Cardiac silhouette is unremarkable. Bony elements are intact. IMPRESSION: Unremarkable chest radiograph.
--- NOTE | 2024-01-08 09:00 | ED_ITS ---
HPI - URI/Sore Throat 2 General: Chief Complaint: Chest Pain Stated Complaint: chest pain Time Seen by Provider: 01/08/24 08:52 Source: patient Mode of arrival: ambulatory Limitations: no limitations History of Present Illness: Patient is a 23-year-old female presents to ED today with a complaint of upper respiratory/bronchitis like symptoms. She states over the past week or so she is having a severe cough that is somewhat productive. Patient states she is coughed so hard that her lungs feel like they are on fire. She states she does have a history of asthma although this is normally very mild. She rarely has to use her albuterol inhaler. She feels like because of her symptoms her asthma has not flared up and she feels wheezy. She has been seen by primary care several days ago and placed on doxycycline. She states she did not feel like this medication helped. She was not given steroids. Patient states her shortness of breath and symptoms are making her feel anxious. MD elicited complaint: cough and other (chest congestion, wheezing) Pertinent past history: asthma Onset (ago): day(s) Consistency: constant Severity: moderate Description of mucous: yellow and green Able to tolerate fluids by mouth: Yes Exacerbating factors: nothing Relieving factors: nothing Associated symptoms: Reports chest pain; Deny abdominal pain, chills, diarrhea, ear or mastoid pain, fever(s), headache(s), nasal congestion, nausea, sinus pain or vomiting Treatments prior to arrival: antibiotics (finished round of doxycycline ) Review of Systems 2 Const: Denies: fever(s), chills, body aches, fatigue or malaise Eyes: Denies: change in vision, blurry vision, photophobia, floaters or seeing flashes ENMT: Denies: throat pain, odynophagia, ear or mastoid pain, nasal discharge, nasal congestion or sinus pain Card: Reports: chest pain; Denies: palpitations, irregular heart rhythm, edema, swelling of feet/ankles, lightheadedness, syncope, pre-syncope, orthopnea, leg pain with exertion or acrocyanosis Resp: Reports: dyspnea, productive cough, wheezing, pain on inspiration and chest congestion; Denies: hemoptysis GI: Denies: abdominal pain, nausea, vomiting or diarrhea Musc: Denies: neck pain, back pain, extremity pain or joint pain Skin/Breast: Denies: rash Neuro: Denies: headache(s), numbness in extremities, weakness in extremities, sensory changes or dizziness PFSH ED 2 PFSH: Medical History Chronic pelvic pain in female Asthma Surgical History S/P tonsillectomy Family History Mother Hypertension Thyroid disease Denies family history of Colon cancer Ovarian cancer Diabetes CAD (coronary artery disease) Clotting disorder Hyperlipidemia Breast cancer Anesthesia complication Bleeding disorder Uterine cancer Stroke Social History Smoking and tobacco/nicotine status: current every day tobacco/nicotine user cigarettes Packs smoked per day: 1 Alcohol intake: never Substance/Drug Use: never Physical Exam 2 Const: COMMON NORMALS: no acute distress, average body habitus, patient oriented x3, no limitations, healthy appearing, alert and well nourished G ENERAL APPEARANCE: cooperative and anxious ORIENTATION/CONSCIOUSNESS: Yes awake, Yes oriented to person, Yes oriented to place and Yes oriented to time HENMT: COMMON NORMALS: normocephalic and atraumatic HEAD & SCALP: normal to inspection, normocephalic and atraumatic FACE & SINUS: normal facial exam and sinuses nontender THROAT: posterior oropharynx normal and tonsils normal Neck/C-Spine: COMMON NORMALS: no lymphadenopathy, no meningeal signs and no JVD Chest: COMMONS NORMALS: normal inspection of the chest and normal palpation of entire chest wall Resp: COMMON NORMALS: normal respiratory effort AUSCULTATION: wheezes right lower and right upper Cardio: COMMON NORMALS: no JVD, regular rate and regular rhythm RATE: r egular rate RHYTHM: regular rhythm Extremity: COMMON NORMALS: no clubbing, cyanosis or edema, no calf tenderness and no pedal edema GENERAL: Yes normal exam except as noted Neuro: BRENDA COMA SCALE: document GCS findings [place] coma scale eye opening: Spontaneous [place] coma scale verbal response: Orientated [place] coma scale motor response: Obey commands [place] coma scale total score: 15 COMMON NORMALS: patient oriented x3, CN's II-XII intact bilaterally, moves all extremities, no focal motor deficits, no sensory deficits noted and gait normal SENSORIUM/ORIENTATION: Yes alert, Yes oriented to person, Yes oriented to place and Yes oriented to time MENINGEAL SIGNS: Yes no meningeal signs Skin: COMMON NORMALS: no rashes or lesions noted GENERAL SKIN EXAM: no rashes or lesions noted Course 2 Vital Signs: Vital signs: Vital Signs Temperature 97.9 F 01/08/24 08:43 Pulse Rate 64 01/08/24 10:10 Respiratory Rate 18 01/08/24 09:25 Blood Pressure 114/66 01/08/24 09:25 Pulse Oximetry 98 01/08/24 10:10 Oxygen Delivery Me thod Room Air 01/08/24 09:25 MDM - URI/Sore Throat Medical Decision Making Patient feels significantly better after DuoNeb and IV Solu-Medrol. Her vital signs are normal. Blood work overall is unremarkable. CXR is normal. Respiratory panel collected and pending. She has albuterol at home she can continue using as needed. I will place her on steroids. Clinical course is consistent with a viral URI in a patient with asthma/smoking. Will place on steroid taper at home. Return to ED precautions given. Lab Data 01/08/24 10:19 01/08/24 10:19 Laboratory Results WBC 7.22 10^3/uL (3.29-11.43) 01/08/24 10:19 RBC 4.11 10^6/uL (3.85-5.65) 01/08/24 10:19 Hgb 12.30 g/dL (11.27-16.99) 01/08/24 10:19 Hct 37.1 % (36-47) 01/08/24 10:19 MCV 90.3 fl (85-98) 01/08/24 10:19 MCH 29.9 pg (27-33) 01/08/24 10:19 MCHC 33.2 g/dL (30-55) 01/08/24 10:19 RDW 12.5 % (12.1-15.1) 01/08/24 10:19 Plt Count 325 10^3/cmm (157-399) 01/08/24 10:19 MPV 9.7 fL (7.4-10.4) 01/08/24 10:19 Neut % (Auto) 57.3 % 01/08/24 10:19 Lymph % (Auto) 33.9 % 01/08/24 10:19 Hinds % (Auto) 5.1 % 01/08/24 10:19 Eos % (Auto) 2.6 % 01/08/24 10:19 Baso % (Auto) 0.8 % 01/08/24 10:19 Neut # (Auto) 4.13 10^3/uL (1.8-7.7) 01/08/24 10:19 Lymph # (Auto) 2.5 10^3/uL (0.8-4.8) 01/08/24 10:19 [place] # (Auto) 0.4 10^3/uL (0.2-0.9) 01/08/24 10:19 Eos # (Auto) 0.2 10^3/uL (0.0-0.8) 01/08/24 10:19 Baso # (Auto) 0.1 10^3/uL (0.0-0.1) 01/08/24 10:19 Nucleated RBC % (auto) 0 % 01/08/24 10:19 Nucleated RBCs # 0.0 /100WBC 01/08/24 10:19 Sodium 141 mmol/L (136-145) 01/08/24 10:19 Potassium 3.2 mmol/L (3.5-5.1) L 01/08/24 10:19 Chloride 107 mmol/L (98-107) 01/08/24 10:19 Carbon Dioxide 22 mmol/L (22-29) 01/08/24 10:19 Anion Gap 15.2 (5-19) 01/08/24 10:19 BUN 8 mg/dL (6-20) 01/08/24 10:19 Creatinine 0.7 mg/dL (0.5-0.9) 01/08/24 10:19 GFR Calculation 103.7 mL/min (90-130) 01/08/24 10:19 Glucose 90 mg/dL (65-115) 01/08/24 10:19 Calculated Osmolality 290 mOsm/kg (285-295) 01/08/24 10:19 Calcium 9.3 mg/dL (8.5-10.5) 01/08/24 10:19 Total Bilirubin 0.5 mg/dL (0.15-1.2) 01/08/24 10:19 AST 15 U/L (0-32) 01/08/24 10:19 ALT 12 U/L (0-33) 01/08/24 10:19 Alkaline Phosphatase 50 U/L (35-105) 01/08/24 10:19 Total Protein 6.9 g/dL (6.6-8.7) 01/08/24 10:19 Albumin 4.5 g/dL (3.5-5.2) 01/08/24 10:19 Globulin 2.4 g/dL (1.3-4.6) 01/08/24 10:19 Procalcitonin 0.02 ng/mL (0-0.5) 01/08/24 10:19 Adenovirus (PCR) Not detected (NOT DETECT) 01/08/24 09:15 C. pneumoniae DNA (PCR) Not detected (NOT DETECT) 01/08/24 09:15 Coronavirus 229E (PCR) Not detected (NOT DETECT) 01/08/24 09:15 Human Metapneumovir PCR Not detected (NOT DETECT) 01/08/24 09:15 Influenza A (H1) PCR Not detected (NOT DETECT) 01/08/24 09:15 Influ A (H1/09) PCR Not detected (NOT DETECT) 01/08/24 09:15 Influenza A (H3) PCR Not detected (NOT DETECT) 01/08/24 09:15 Influenza Type A (PCR) Not detected (NOT DETECT) 01/08/24 09:15 Influenza Type B (PCR) Not detected (NOT DETECT) 01/08/24 09:15 M. pneumoniae (PCR) Not detected (NOT DETECT) 01/08/24 09:15 Parainfluenza 1 (PCR) Not detected (NOT DETECT) 01/08/24 09:15 Parainfluenza 2 (PCR) Not detected (NOT DETECT) 01/08/24 09:15 Parainfluenza 3 (PCR) Not detected (NOT DETECT) 01/08/24 09:15 Parainfluenza 4 (PCR) Not detected (NOT DETECT) 01/08/24 09:15 RSV Type A (PCR) Not detected (NOT DETECT) 01/08/24 09:15 RSV Type B (PCR) Not detected (NOT DETECT) 01/08/24 09:15 Entero/Rhino (PCR) Not detected (NOT DETECT) 01/08/24 09:15 SARS-CoV-2 (PCR) Not detected (NOT DETECT) 01/08/24 09:15 All radiology interpretation(s) finalized by discharge Discharge Plan Discharge Patient Disposition: Home Clinical Impression: Upper respiratory tract infection Qualifiers: URI type: unspecified viral URI Qualified Code(s): J06.9 - Acute upper respiratory infection, unspecified Condition: Stable Prescriptions: New prednisone 10 mg tablet 10 mg PO DAILY 7 Days Qty: 27 0RF Rx Instructions: 6 tabs on days 1-2, 5 tabs on days 3, 4 tabs on day 4, 3 tabs on day 5, 2 tabs on day 6, 1 tab on day 7 No Action ferrous sulfate [Feosol] 325 mg (65 mg iron) tablet 325 mg PO DAILY triamcinolone acetonide 0.5 % cream 1 applic topical TID Qty: 15 2RF doxycycline hyclate 100 mg tablet 100 mg PO BID 7 Days Qty: 14 0RF albuterol sulfate 2.5 mg /3 mL (0.083 %) solution for nebulization 2.5 mg INHALATION Q4H PRN (Reason: shortness of breath or wheezing) Qty: 180 0RF albuterol sulfate [ProAir HFA] 90 mcg/actuation HFA aerosol inhaler 2 puff INHALATION Q4H PRN (Reason: Shortness Of Breath) ibuprofen 800 mg tablet 800 mg PO TID PRN (Reason: pain) Qty: 60 0RF Discharge Orders: Discharge ED (Routine); Ordered 01/08/24 Ordered By: Suzette Nava Referrals: Eddie Chiu MD [Primary Care Provider] - 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
[2024-01-08] MEDS: methylPREDNISolone sod succ 125 mg/2 mL INJ 80 MG IVP (09:18)
[2024-01-08 09:25] VITALS: BP 114/66; PULSE 62; PULSE 71; RESP 18; O2SAT 100; O2SAT 94
[2024-01-08] MEDS: ipratropium-albuterol 3 mL Neb INHALATION (09:29)
[2024-01-08 09:31] VITALS: PULSE 76
[2024-01-08 10:10] VITALS: PULSE 64; O2SAT 98
[2024-01-08 10:50] LABS: Basophils # 0.1 10^3/uL (0.0-0.1); Basophils % 0.8 %; Eosinophils # 0.2 10^3/uL (0.0-0.8); Eosinophils % 2.6 %; Hematocrit 37.1 % (36-47); Lymphocytes # 2.5 10^3/uL (0.8-4.8); Lymphocytes % 33.9 %; Mean Corpuscular HGB Conc 33.2 g/dL (30-55); Mean Corpuscular Hemoglobin 29.9 pg (27-33); Mean Corpuscular Volume 90.3 fl (85-98); Mean Platelet Volume 9.7 fL (7.4-10.4); Monocytes # 0.4 10^3/uL (0.2-0.9); Monocytes % 5.1 %; Neutrophils # 4.13 10^3/uL (1.8-7.7); Neutrophils % 57.3 %; Nucleated Red Blood Cells % 0 %; Platelet Count 325 10^3/cmm (157-399); Red Blood Count 4.11 10^6/uL (3.85-5.65); Red Cell Distribution Width 12.5 % (12.1-15.1); White Blood Count 7.22 10^3/uL (3.29-11.43)
[2024-01-08 10:55] LABS: Alanine Aminotransferase 12 U/L (0-33); Albumin Level 4.5 g/dL (3.5-5.2); Alkaline Phosphatase 50 U/L (35-105); Anion Gap 15.2 (5-19); Aspartate Amino Transferase 15 U/L (0-32); Blood Urea Nitrogen 8 mg/dL (6-20); Calcium 9.3 mg/dL (8.5-10.5); Carbon Dioxide 22 mmol/L (22-29); Chloride 107 mmol/L (98-107); Creatinine Clr Calc Pharmacy 114.7416; Globulin 2.4 g/dL (1.3-4.6); Glomerular Filtration Rate 103.7 mL/min (90-130); Glucose 90 mg/dL (65-115); Osmolality Calculated 290 mOsm/kg (285-295); Potassium 3.2 mmol/L (3.5-5.1); Sodium 141 mmol/L (136-145); Total Bilirubin 0.5 mg/dL (0.15-1.2); Total Protein 6.9 g/dL (6.6-8.7)
[2024-01-08 11:01] LABS: Procalcitonin 0.02 ng/mL (0-0.5)
[2024-01-08 11:12] LABS: Adenovirus Not Detected (NOT DETECT); Chlamydia Pneumoniae Not Detected (NOT DETECT); Coronavirus 229E,HKU1,NL63,OC4 Not Detected (NOT DETECT); Human Metapneumovirus Not Detected (NOT DETECT); Human Rhinovirus/Enterovirus Not Detected (NOT DETECT); Influenza A Not Detected (NOT DETECT); Influenza A H1 Not Detected (NOT DETECT); Influenza A H1-2009 Not Detected (NOT DETECT); Influenza A H3 Not Detected (NOT DETECT); Influenza B Not Detected (NOT DETECT); Mycoplasma Pneumoniae Not Detected (NOT DETECT); Parainfluenza Virus Type 1 Not Detected (NOT DETECT); Parainfluenza Virus Type 2 Not Detected (NOT DETECT); Parainfluenza Virus Type 3 Not Detected (NOT DETECT); Parainfluenza Virus Type 4 Not Detected (NOT DETECT); Respiratory Syncytial Virus A Not Detected (NOT DETECT); Respiratory Syncytial Virus B Not Detected (NOT DETECT); SARS-COV-2 Not Detected (NOT DETECT)
[2024-01-08 11:29] VITALS: BP 114/56; PULSE 75; O2SAT 100
== END 2024-01-08 11:28 | disposition home or self-care (01) ==
PROVIDERS: Emergency Medicine; Emergency Provider Physician Assistant; PCP Family Medicine
DX: J06.9 Acute upper respiratory infection, unspecified (principal); Z11.52 Encounter for screening for COVID-19; F17.210 Nicotine dependence, cigarettes, uncomplicated
CPT/HCPCS: 36415; 71045; 80053; 84145; 85025; 87486; 87581; 87633; 93005; 94640; 96374; 99285; J2919

== ENCOUNTER 2024-07-09 20:39 | Emergency (ER) | payer MEDICAID, SELFPAY ==
[2024-07-09 20:50] VITALS: BP 97/61; PULSE 69; RESP 18; TEMP 36.6; O2SAT 98; BMI 21.6
--- NOTE | 2024-07-09 21:44 | ED_ITS ---
HPI - Dental/Oral 2 General: Chief complaint: Dental/Oral Stated complaint: Tooth/Mouth Pain Time Seen by Provider: 07/09/24 21:09 History of Present Illness: Patient is a 24-year-old female that presents with dental pain. She states that symptoms began approximately 3 days ago but pain swelling has worsened in the last 24 hours. Patient does have a dentist appointment scheduled on the . Related Data Home Medications Medication Instructions Recorded Confirmed ferrous sulfate 325 mg (65 mg 325 mg PO DAILY 07/03/20 02/05/24 iron) tablet (Feosol) albuterol sulfate 90 mcg/actuation 2 puff inhalation Q4H PRN 09/20/20 02/05/24 aerosol inhaler (ProAir HFA) Shortness Of Breath Previous Rx's Medication Instructions Recorded albuterol sulfate 2.5 mg/3 mL 2.5 mg (3 mL) inhalation Q4H PRN 07/09/20 (0.083 %) solution for nebulization shortness of breath or wheezing #180 mL ibuprofen 800 mg tablet 800 mg PO TID PRN pain #60 tabs 10/17/20 triamcinolone acetonide 0.5 % 1 applic topical TID #15 grams 08/15/23 topical cream azithromycin 500 mg tablet 500 mg PO DAILY 5 days #5 tabs 02/05/24 chlorhexidine gluconate 0.12 % 15 ml buccal BID #1,500 mL 07/09/24 mouthwash (Peridex) clindamycin HCl 150 mg capsule 450 mg (3 x 150 mg) PO Q8H 7 days 07/09/24 #63 caps ketorolac 10 mg tablet 10 mg PO Q8H 5 days #15 tabs 07/09/24 Allergies Allergy/AdvReac Type Severity Reaction Status Date / Time amoxicillin Allergy ADR/ALGY-Fl Verified 02/05/24 14:29 ushing Penicillins Allergy ALGY-Hives Verified 02/05/24 14:29 Review of Systems 2 General: Reports: 10 or more systems reviewed and unremarkable except in HPI and below PFSH ED 2 PFSH: Medical History Chronic pelvic pain in female Asthma Surgical History S/P tonsillectomy Family History Mother Hypertension Thyroid disease Denies family history of Colon cancer Ovarian cancer Diabetes CAD (coronary artery disease) Clotting disorder Hyperlipidemia Breast cancer Anesthesia complication Bleeding disorder Uterine cancer Stroke Social History Smoking and tobacco/nicotine status: current every day tobacco/nicotine user cigarettes Packs smoked per day: 1 Alcohol intake: never Substance/Drug Use: never Physical Exam 2 Const: COMMON NORMALS: no acute distress, patient oriented x3, alert and well nourished HENMT: TEETH & GINGIVA IMAGES: 1. Abscess 2. Gingivitis, gingival Lymph: LYMPHATIC: no lymphadenopathy noted Resp: COMMON NORMALS: normal respiratory effort and clear to auscultation bilaterally EFFORT & INSPECTION: Yes able to speak in complete sentences, Yes symmetric chest movement, No Actively coughing and No audible wheezes A USCULTATION: clear to auscultation bilaterally Cardio: COMMON NORMALS: regular rate and regular rhythm RATE: regular rate RHYTHM: regular rhythm GI: COMMON NORMALS: Normal to inspection, nondistended, normoactive bowel sounds present Neuro: COMMON NORMALS: patient oriented x3, moves all extremities and gait normal SENSORIUM/ORIENTATION: Yes alert Psych: COMMON NORMALS: cooperative Skin: RASHES: no rashes Course 2 Vital Signs: Vital signs: Vital Signs Temperature 97.9 F 07/09/24 20:50 Pulse Rate 69 07/09/24 20:50 Respiratory Rate 18 07/09/24 20:50 Blood Pressure 97/61 07/09/24 20:50 Pulse Oximetry 98 07/09/24 20:50 Oxygen Delivery Me thod Room Air 07/09/24 20:50 MDM - Dental/Oral Medical Decision Making Patient was treated here in the emergency department for dental pain. She has allergies to amoxicillin and penicillin so she was started on clindamycin. Patient is going to be sent home on clindamycin, Peridex, ketorolac No radiology studies performed this visit Discharge Plan Discharge Patient Disposition: Home Clinical Impression: Dental caries, Gingival abscess, Dental abscess Condition: Stable Prescriptions: New clindamycin HCl 150 mg capsule 450 mg PO Q8H 7 Days Qty: 63 0RF ketorolac 10 mg tablet 10 mg PO Q8H 5 Days Qty: 15 0RF Rx Instructions: Stop taking other nonsteroidal anti-inflammatory drugs chlorhexidine gluconate [Peridex] 0.12 % mouthwash 15 ml buccal BID Qty: 1500 0RF No Action ferrous sulfate [Feosol] 325 mg (65 mg iron) tablet 325 mg PO DAILY triamcinolone acetonide 0.5 % cream 1 applic topical TID Qty: 15 2RF azithromycin 500 mg tablet 500 mg PO DAILY 5 Days Qty: 5 0RF albuterol sulfate 2.5 mg /3 mL (0.083 %) solution for nebulization 2.5 mg INHALATION Q4H PRN (Reason: shortness of breath or wheezing) Qty: 180 0RF albuterol sulfate [ProAir HFA] 90 mcg/actuation HFA aerosol inhaler 2 puff INHALATION Q4H PRN (Reason: Shortness Of Breath) ibuprofen 800 mg tablet 800 mg PO TID PRN (Reason: pain) Qty: 60 0RF Discharge Orders: Discharge ED (Routine); Ordered 07/09/24 Ordered By: Porfirio Hernandez [facility] [place] Referrals: Eddie Chiu MD [Primary Care Provider] - Patient Instructions: Dental Abscess (ED), Pain Management Activity Restrictions/Additional Instructions: Please take all prescriptions as prescribed Please follow-up with a dentist Smoking cessation is resting you can do for your oral health Coding Level of Care Code 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
[2024-07-09] MEDS: clindamycin 150 mg Capsule 450 MG PO (22:05)
[2024-07-09] MEDS: ketorolac 60 mg/2 mL INJ IM (22:06)
[2024-07-09 22:10] VITALS: BP 131/82; PULSE 87; O2SAT 94
--- NOTE | 2024-07-09 22:12 | PC.NURSE ---
mouth wash order for pt, not available in [facility]. SPECIAL EDUCATION SCIENCE TEACHER notified and aware.
== END 2024-07-09 22:13 | disposition home or self-care (01) ==
PROVIDERS: Emergency Provider Nurse Practitioner; PCP Family Medicine
DX: K02.9 Dental caries, unspecified (principal); K05.20 Aggressive periodontitis, unspecified; F17.210 Nicotine dependence, cigarettes, uncomplicated
CPT/HCPCS: 96372; 99284; J1885

== ENCOUNTER 2024-10-16 11:00 | Emergency (ER) | payer MEDICAID, SELFPAY ==
[2024-10-16 11:42] VITALS: BP 92/58; PULSE 82; RESP 14; TEMP 36.7; O2SAT 100; BMI 21.6
[2024-10-16 12:45] LABS: Covid PCR NEGATIVE (Negative); Influenza A POSITIVE (Negative); Influenza B NEGATIVE (Negative); Respiratory Syncytial Virus Ce NEGATIVE (Negative)
[2024-10-16 13:13] VITALS: O2SAT 100
--- NOTE | 2024-10-16 13:24 | W.ED.COVID ---
HPI - COVID General: Chief Complaint: COVID symptoms Stated Complaint: want test for covid Time Seen by Provider: 10/16/24 13:10 History of Present Illness: Patient has illness for 3 to 4 days. Patient appears nontoxic. Patient appears in no acute distress. Patient has a history of asthma. COVID Results: SARS-CoV-2 Antigen (Rapid) Negative (Negative) 05/12/22 11:56 SARS-CoV-2 RNA (RT-PCR) Not detected (NOT DETECTED) 09/20/20 09:13 Nasal/Oral Coronavirus 2019 PCR Not detected 10/10/20 12:02 SARS-CoV-2 (PCR) Not detected (NOT DETECT) 01/08/24 09:15 Coronavirus Type 229E (PCR) Not detected (NOT DETECT) 01/08/24 09:15 Coronavirus (PCR) Negative (Negative) 10/16/24 11:50 Related Data Home Medications Medication Instructions Recorded Confirmed ferrous sulfate 325 mg (65 mg 325 mg PO DAILY 07/03/20 07/29/24 iron) tablet (Feosol) albuterol sulfate 90 mcg/actuation 2 puff inhalation Q4H PRN 09/20/20 07/29/24 aerosol inhaler (ProAir HFA) Shortness Of Breath Previous Rx's Medication Instructions Recorded albuterol sulfate 2.5 mg/3 mL 2.5 mg (3 mL) inhalation Q4H PRN 07/09/20 (0.083 %) solution for nebulization shortness of breath or wheezing #180 mL ibuprofen 800 mg tablet 800 mg PO TID PRN pain #60 tabs 10/17/20 triamcinolone acetonide 0.5 % 1 applic topical TID #15 grams 08/15/23 topical cream chlorhexidine gluconate 0.12 % 15 ml buccal BID #1,500 mL 07/09/24 mouthwash (Peridex) azithromycin 250 mg tablet See Rx Instructions PO .COMPLEX #6 07/29/24 tabs albuterol sulfate 90 mcg/actuation 2 inh inhalation Q4H PRN shortness 10/16/24 aerosol inhaler of breath or wheezing #8.5 grams Allergies Allergy/AdvReac Type Severity Reaction Status Date / Time amoxicillin Allergy ADR/ALGY-Fl Verified 10/16/24 11:42 ushing Penicillins Allergy ALGY-Hives Verified 10/16/24 11:42 Review of Systems General: Reports: 10 or more systems reviewed and unremarkable except in HPI and below PFSH ED PFSH: Medical History Chronic pelvic pain in female Asthma Surgical History S/P tonsillectomy Family History Mother Hypertension Thyroid disease Denies family history of Colon cancer Ovarian cancer Diabetes CAD (coronary artery disease) Clotting disorder Hyperlipidemia Breast cancer Anesthesia complication Bleeding disorder Uterine cancer Stroke Social History Smoking and tobacco/nicotine status: current every day tobacco/nicotine user cigarettes Packs smoked per day: 1 Alcohol intake: never Substance/Drug Use: never Physical Exam Const: COMMON NORMALS: alert HENMT: COMMON NORMALS: normocephalic HEAD & SCALP: normocephalic Resp: COMMON NORMALS: normal respiratory effort and clear to auscultation bilaterally AUSCULTATION: clear to auscultation bilaterally Cardio: COMMON NORMALS: regular rate and regular rhythm RATE: regular rate RHYTHM: regular rhythm GI: COMMON NORMALS: non-tender Extremity: COMMON NORMALS: normal to inspection Neuro: SENSORIUM/ORIENTATION: Yes alert Skin: COMMON NORMALS: turgor normal GENERAL SKIN EXAM: turgor normal Course Vital Signs: Vital signs: Vital Signs Temperature 98.0 F 10/16/24 11:42 Pulse Rate 82 10/16/24 11:42 Respiratory Rate 14 10/16/24 11:42 Blood Pressure 92/58 10/16/24 11:42 Pulse Oximetry 100 10/16/24 13:13 Oxygen Delivery Me thod Room Air 10/16/24 13:13 MDM - COVID Medical Decision Making 24-year-old female comes in today with illness x 3 to 4 days. Patient appears nontoxic. Patient appears no acute distress. Respirations are even. Lungs are clear to auscultation. Skin is warm and dry. Vital signs are normal. Differential diagnosis upper respiratory infection, influenza, COVID, pneumonia. Patient is stable. Patient tested positive for influenza A. Reviewed exam with patient with recommendation for treatment and follow-up. Patient reported understanding agreed to plan. Lab Data Laboratory Results Coronavirus (PCR) Negative (Negative) 10/16/24 11:50 Influenza A (PCR) Positive (Negative) 10/16/24 11:50 Influenza Type B (PCR) Negative (Negative) 10/16/24 11:50 RSV (PCR) Negative (Negative) 10/16/24 11:50 SARS-CoV-2 Antigen (Rapid) Negative (Negative) 05/12/22 11:56 SARS-CoV-2 RNA (RT-PCR) Not detected (NOT DETECTED) 09/20/20 09:13 Nasal/Oral Coronavirus 2019 PCR Not detected 10/10/20 12:02 SARS-CoV-2 (PCR) Not detected (NOT DETECT) 01/08/24 09:15 Coronavirus Type 229E (PCR) Not detected (NOT DETECT) 01/08/24 09:15 Coronavirus (PCR) Negative (Negative) 10/16/24 11:50 No radiology studies performed this visit Discharge Plan Discharge Patient Disposition: Home Clinical Impression: Influenza Condition: Stable Prescriptions: New albuterol sulfate 90 mcg/actuation HFA aerosol inhaler 2 inh inhalation Q4H PRN (Reason: shortness of breath or wheezing) Qty: 8.5 1RF Continued albuterol sulfate [ProAir HFA] 90 mcg/actuation HFA aerosol inhaler 2 puff INHALATION Q4H PRN (Reason: Shortness Of Breath) No Action ferrous sulfate [Feosol] 325 mg (65 mg iron) tablet 325 mg PO DAILY azithromycin 250 mg tablet See Rx Instructions PO .COMPLEX Qty: 6 0RF Rx Instructions: For 250 mg dose pack: take 500 mg today (day 1), then 250 mg for 4 days (days 2-5) PO triamcinolone acetonide 0.5 % cream 1 applic topical TID Qty: 15 2RF albuterol sulfate 2.5 mg /3 mL (0.083 %) solution for nebulization 2.5 mg INHALATION Q4H PRN (Reason: shortness of breath or wheezing) Qty: 180 0RF ibuprofen 800 mg tablet 800 mg PO TID PRN (Reason: pain) Qty: 60 0RF chlorhexidine gluconate [Peridex] 0.12 % mouthwash 15 ml buccal BID Qty: 1500 0RF Discharge Orders: Discharge ED (Routine); Ordered 01/26/25 Ordered By: Joshua Wallace Referrals: Eddie Chiu MD [Primary Care Provider] - Discharge Diet: Usual diet Discharge Activity: Increase activity as tolerated Patient Instructions: Influenza (ED) Activity Restrictions/Additional Instructions: Drink plenty water and fluids. Activity as tolerated. Follow-up with primary care. 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
== END 2024-10-16 13:32 | disposition home or self-care (01) ==
PROVIDERS: Emergency Medicine; Emergency Provider Nurse Practitioner Family; PCP Family Medicine
DX: J10.1 Influenza due to other identified influenza virus with other respiratory manifestations (principal); Z11.52 Encounter for screening for COVID-19; F17.210 Nicotine dependence, cigarettes, uncomplicated
CPT/HCPCS: 87637; 99283

== ENCOUNTER 2024-12-07 08:02 | Emergency (ER) | payer MEDICAID, SELFPAY ==
[2024-12-07 08:41] VITALS: BP 93/61; PULSE 85; RESP 18; TEMP 36.8; O2SAT 98; BMI 21.6
[2024-12-07 08:48] LABS: Bilirubin Urine Negative (Negative); Blood Urine Negative (Negative); Glucose Urine UA Negative (Normal); Ketones Urine Negative (Negative); Leukocyte Esterase Urine Negative (Negative); Nitrate Urine Negative (Negative); Protein Urine Negative (Negative); Specific Gravity, Urine 1.007 (1.005-1.030); Urine Appearance Clear (CLEAR); Urine Color Yellow (Yellow); Urobilinogen Urine 0.2 mg/dL (Negative); pH Urine 5.5 (5-7)
[2024-12-07 08:53] LABS: Add Urine Microscopic? YES; Bacteria Urine None Seen /hpf; Hyaline Casts Urine 0.81 /lpf; RBC Urine 0-2 /hpf (0-2); Squamous Epithelial Cell Urine 0-5 /hpf (0-5); WBC Urine 0-5 /hpf (0-5)
[2024-12-07 08:58] LABS: Basophils # 0.1 10^3/uL (0.0-0.1); Basophils % 0.5 %; Eosinophils # 0.2 10^3/uL (0.0-0.8); Eosinophils % 1.8 %; Lymphocytes # 1.7 10^3/uL (0.8-4.8); Lymphocytes % 15.6 %; Mean Corpuscular HGB Conc 33.8 g/dL (30-55); Mean Corpuscular Hemoglobin 30.3 pg (27-33); Mean Corpuscular Volume 89.5 fl (85-98); Mean Platelet Volume 9.3 fL (7.4-10.4); Monocytes # 0.8 10^3/uL (0.2-0.9); Monocytes % 7.3 %; Neutrophils # 8.01 10^3/uL (1.8-7.7); Neutrophils % 74.4 %; Nucleated Red Blood Cells % 0 %; Platelet Count 303 10^3/cmm (157-399); Red Cell Distribution Width 12.2 % (12.1-15.1); White Blood Count 10.75 10^3/uL (3.29-11.43)
--- NOTE | 2024-12-07 09:15 | ED_ITS ---
HPI - Abdominal Pain 2 General: Chief Complaint: Abdominal Pain Stated Complaint: abd pain, n/d, dizzy Time Seen by Provider: 12/07/24 08:07 History of Present Illness: 24-year-old female with reports of abdom inal pain for the last 3 days nausea but has not had any vomiting. Denies any medic easy melena hematemesis or coffee- ground emesis no dysuria urgency or frequency has had a little bit of loose stools. 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 Eating and movement seem to make it worse at rest fasting seem to improve. She does take ibuprofen occasionally. No previous abdominal surgeries. Localizes the pain it to the epigastric and right upper quadrant area. Associated Symptoms: Denies chills, dysuria and fever(s) Related Data Home Medications ?Medication ?Instructions ?Recorded ?Confirmed ibuprofen 200 mg tablet (Advil) 800 mg PO Q6H PRN Feve r Or Pain 12/07/24 12/07/24 Previous Rx's ?Medication ?Instructions ?Recorded promethazine 25 mg tablet 25 mg PO Q6H PRN nausea and 12/07/24 vomiting #20 tabs Allergies Allergy/AdvReac Type Severity Reaction Status Date / Time amoxicillin Allergy ADR/ALGY-Fl Verified 10/27/24 07:47 ushing Penicillins Allergy ALGY-Hives Verified 10/27/24 07:47 Review of Systems 2 Const: Denies: fever(s) or chills Card: Denies: chest pain Resp: Denies: dyspnea GI: Reports: abdominal pain : Denies: dysuria, urinary frequency or urinary urgency Musc: Denies: neck pain or back pain Skin/Breast: Denies: rash PFSH ED 2 PFSH: Medical History Chronic pelvic pain in female Asthma Surgical History S/P tonsillectomy Family History Mother Hypertension Thyroid disease Denies family history of Colon cancer Ovarian cancer Diabetes CAD (coronary artery disease) Clotting disorder Hyperlipidemia Breast cancer Anesthesia complication Bleeding disorder Uterine cancer Stroke Social History (Reviewed 10/27/24 @ 07:54 by MANUEL Iniguez Smoking and tobacco/nicotine status: current every day tobacco/nicotine user cigarettes Packs smoked per day: 1 Alcohol intake: never Substance/Drug Use: never Physical Exam 2 Const: COMMON NORMALS: no acute distress GENERAL APPEARANCE: cooperative and comfortable ORIENTATION/CONSCIOUSNESS: Yes awake, Yes oriented to person, Yes oriented to place and Yes oriented to time HENMT: COMMON NORMALS: normocephalic, atraumatic and hearing grossly normal bilaterally HEAD & SCALP: normocephalic and atraumatic Resp: COMMON NORMALS: normal respiratory effort, No retractions, No use of accessory muscles and clear to auscultation bilaterally AUSCULTATION: clear to auscultation bilaterally Cardio: COMMON NORMALS: regular rate, regular rhythm and No murmurs present (Cardio) RATE: regular rate RHYTHM: regular rhythm GI: COMMON NORMALS: Soft to palpation and No hepatosplenomegaly present A USCULTATION: Yes normoactive bowel sounds PALPATION: Yes Soft to palpation, No Tenderness to palpation present (GI), No Guarding due to palpation present (GI) and Yes No hepatosplenomegaly present Extremity: COMMON NORMALS: normal to inspection, capillary refill normal, no clubbing, cyanosis or edema, no calf tenderness and no pedal edema Neuro: SENSORIUM/ORIENTATION: Yes oriented to person, Yes oriented to place and Yes oriented to time Skin: COMMON NORMALS: no rashes or lesions noted GENERAL SKIN EXAM: no rashes or lesions noted Course 2 Vital Signs: Vital signs: Vital Signs Temperature 98.2 F 12/07/24 08:41 Pulse Rate 87 12/07/24 12:02 Respiratory Rate 18 12/07/24 08:41 Blood Pressure 111/64 12/07/24 12:02 Pulse Oximetry 99 12/07/24 12:02 Oxygen Delivery Me thod Room Air 12/07/24 08:41 MDM - Abdominal Pain Medical Decision Making CT negative labs unremarkable no signs of cystitis no other significant findings patient is feeling somewhat better vital signs are stable reviewed with the patient. Reviewed with the patient. After talking to her symptoms she does use marijuana fairly regularly suspect that may be contributing to this we had a discussion about different things she might do to decrease that. Will have her follow-up with her primary care doctor Medical Records I reviewed the patient's medical records. Lab Data I reviewed the patient's lab results. 12/07/24 08:52 12/07/24 08:52 Labs/Radiology: Radiology Impressions Gallbladder Ultrasound 12/07/24 09:19 IMPRESSION: 1. Normal gallbladder. 2. No intrahepatic duct dilatation. 3. Hyperechoic focus RIGHT kidney measures 0.7 cm. 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 As this has not been previously described consider additional evaluation by CT or MRI to evaluate for microscopic fat. CT or MRI with and without contrast recommended. Abdomen/Pelvis CT 12/07/24 10:33 IMPRESSION: 1. Cortical focus mid RIGHT kidney measures 4.4 mm. This is consistent with an angiomyolipoma in conjunction with the renal ultrasound findings. 2. No renal obstruction. 3. Normal appendix. 4. Free fluid in the cul-de-sac is physiologic. Enhancing corpus luteal cyst/follicles within the RIGHT ovary. Laboratory Results WBC 10.75 10^3/uL (3.29-11.43) 12/07/24 08:52 RBC 3.80 10^6/uL (3.85-5.65) L 12/07/24 08:52 Hgb 11.50 g/dL (11.27-16.99) 12/07/24 08:52 Hct 34.0 % (36-47) L 12/07/24 08:52 MCV 89.5 fl (85-98) 12/07/24 08:52 MCH 30.3 pg (27-33) 12/07/24 08:52 MCHC 33.8 g/dL (30-55) 12/07/24 08:52 RDW 12.2 % (12.1-15.1) 12/07/24 08:52 Plt Count 303 10^3/cmm (157-399) 12/07/24 08:52 MPV 9.3 fL (7.4-10.4) 12/07/24 08:52 Neut % (Auto) 74.4 % 12/07/24 08:52 Lymph % (Auto) 15.6 % 12/07/24 08:52 Grady % (Auto) 7.3 % 12/07/24 08:52 Eos % (Auto) 1.8 % 12/07/24 08:52 Baso % (Auto) 0.5 % 12/07/24 08:52 Neut # (Auto) 8.01 10^3/uL (1.8-7.7) H 12/07/24 08:52 Lymph # (Auto) 1.7 10^3/uL (0.8-4.8) 12/07/24 08:52 Grady # (Auto) 0.8 10^3/uL (0.2-0.9) 12/07/24 08:52 Eos # (Auto) 0.2 10^3/uL (0.0-0.8) 12/07/24 08:52 Baso # (Auto) 0.1 10^3/uL (0.0-0.1) 12/07/24 08:52 Nucleated RBC % (auto) 0 % 12/07/24 08:52 Nucleated RBCs # 0.0 /100WBC 12/07/24 08:52 Sodium 138 mmol/L (136-145) 12/07/24 08:52 Potassium 3.8 mmol/L (3.5-5.1) 12/07/24 08:52 Chloride 102 mmol/L (98-107) 12/07/24 08:52 Carbon Dioxide 22 mmol/L (22-29) 12/07/24 08:52 Anion Gap 17.8 (5-19) 12/07/24 08:52 BUN 6 mg/dL (6-20) 12/07/24 08:52 Creatinine 0.7 mg/dL (0.5-0.9) 12/07/24 08:52 GFR Calculation 102.8 mL/min (90-130) 12/07/24 08:52 Glucose 92 mg/dL (65-115) 12/07/24 08:52 Calculated Osmolality 283 mOsm/kg (285-295) L 12/07/24 08:52 Calcium 8.9 mg/dL (8.5-10.5) 12/07/24 08:52 Total Bilirubin 0.3 mg/dL (0.15-1.2) 12/07/24 08:52 AST 16 U/L (0-32) 12/07/24 08:52 ALT 13 U/L (0-33) 12/07/24 08:52 Alkaline Phosphatase 64 U/L (35-105) 12/07/24 08:52 Total Protein 7.1 g/dL (6.6-8.7) 12/07/24 08:52 Albumin 4.5 g/dL (3.5-5.2) 12/07/24 08:52 Globulin 2.6 g/dL (1.3-4.6) 12/07/24 08:52 Lipase 27 U/L (13-60) 12/07/24 08:52 HCG, Qual Negative (Negative) 12/07/24 08:52 Urine Color Yellow (Yellow) 12/07/24 08:32 Urine Appearance Clear (CLEAR) 12/07/24 08:32 Urine pH 5.5 (5-7) 12/07/24 08:32 Ur Specific [place] 1.007 (1.005-1.030) 12/07/24 08:32 Urine Protein Negative (Negative) 12/07/24 08:32 Urine Glucose (UA) Negative (Normal) 12/07/24 08:32 Urine Ketones Negative (Negative) 12/07/24 08:32 Urine Blood Negative (Negative) 12/07/24 08:32 Urine Nitrate Negative (Negative) 12/07/24 08:32 Urine Bilirubin Negative (Negative) 12/07/24 08:32 Urine Urobilinogen 0.2 mg/dL (Negative) 12/07/24 08:32 Ur Leukocyte Esterase Negative (Negative) 12/07/24 08:32 Urine RBC 0-2 /hpf (0-2) 12/07/24 08:32 Urine WBC 0-5 /hpf (0-5) 12/07/24 08:32 Ur Squamous Epith Cells 0-5 /hpf (0-5) 12/07/24 08:32 Amorphous Sediment Not Reportable 12/07/24 08:32 Urine Bacteria None seen /hpf (NONE) 12/07/24 08:32 Hyaline Casts 0.81 /lpf 12/07/24 08:32 Influenza A (PCR) Negative (Negative) 12/07/24 08:33 Influenza Type B (PCR) Negative (Negative) 12/07/24 08:33 RSV (PCR) Negative (Negative) 12/07/24 08:33 SARS-CoV-2 (PCR) Negative (Negative) 12/07/24 08:33 All radiology interpretation(s) finalized by discharge Discharge Plan Discharge Patient Disposition: Home Clinical Impression: Abdominal pain Condition: Stable Prescriptions: New promethazine 25 mg tablet 25 mg PO Q6H PRN (Reason: nausea and vomiting) Qty: 20 0RF No Action ibuprofen [Advil] 200 mg Tablet 800 mg PO Q6H PRN (Reason: Fever Or Pain) Discharge Orders: Discharge ED (Routine); Ordered 12/07/24 Ordered By: Kaushal Yarbrough Referrals: Eddie Chiu MD [Primary Care Provider] - Discharge Diet: Clear Liquid Discharge Activity: Increase activity as tolerated Patient Instructions: Abdominal Pain (ED), Opioid Safety, Pain Management Activity Restrictions/Additional Instructions: Thank you for choosing [facility] for your healthcare needs today. It is very important that you follow up as instructed or that you return to the Emergency Department should you have concerns or if your condition changes or worsens in any way. You are seen in the emergency room with complaints abdominal pain with nausea. Your laboratory test did not show any significant abnormalities urine was normal CT and ultrasound did not show any emergent conditions. 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 Recommend clear liquid diet for the next 24 to 48 hours and advance as tolerated use promethazine as needed. Consider decreasing use of marijuana as regular use of marijuana can cause abdominal pain nausea and vomiting. 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
[2024-12-07 09:16] LABS: HCG, Serum Qual Negative (Negative)
[2024-12-07 09:19] LABS: Influenza A NEGATIVE (Negative); Influenza B NEGATIVE (Negative); Respiratory Syncytial Virus Ce NEGATIVE (Negative); SARS-CoV-2 PCR NEGATIVE (Negative)
--- NOTE | 2024-12-07 09:19 | US_ITS ---
WS: [id number] RIGHT UPPER QUADRANT ULTRASOUND HISTORY: Abdominal pain COMPARISON: None available. Liver: 16.0 cm in length. Normal size liver and echogenicity. No bile duct dilatation or mass. Portal Vein: Normal hepatopetal flow with monophasic waveform. Gallbladder: Normally distended gallbladder with no stones or wall thickening. CBD: 0.4 cm Pancreas: Normal size and echogenicity. Right kidney: 10.5 cm in length. Normal size kidney. Hyperechoic focus in the cortex of the mid kidney measures 0.7 cm. Most consistent with an angiomyolipoma. No hydronephrosis. Aorta and IVC: Unremarkable abdominal aorta and IVC. No ascites. US/US gall bladder [id number] IMPRESSION: 1. Normal gallbladder. 2. No intrahepatic duct dilatation. 3. Hyperechoic focus RIGHT kidney measures 0.7 cm. 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 As this has not been previously described consider additional evaluation by CT or MRI to evaluate for microscopic fat. CT or MRI with and wit hout contrast recommended.
[2024-12-07 09:21] LABS: Alanine Aminotransferase 13 U/L (0-33); Albumin Level 4.5 g/dL (3.5-5.2); Alkaline Phosphatase 64 U/L (35-105); Anion Gap 17.8 (5-19); Aspartate Amino Transferase 16 U/L (0-32); Blood Urea Nitrogen 6 mg/dL (6-20); Calcium 8.9 mg/dL (8.5-10.5); Carbon Dioxide 22 mmol/L (22-29); Chloride 102 mmol/L (98-107); Creatinine Clr Calc Pharmacy 113.0512; Globulin 2.6 g/dL (1.3-4.6); Glomerular Filtration Rate 102.8 mL/min (90-130); Glucose 92 mg/dL (65-115); Lipase 27 U/L (13-60); Osmolality Calculated 283 mOsm/kg (285-295); Potassium 3.8 mmol/L (3.5-5.1); Sodium 138 mmol/L (136-145); Total Bilirubin 0.3 mg/dL (0.15-1.2); Total Protein 7.1 g/dL (6.6-8.7)
--- NOTE | 2024-12-07 10:33 | CT_ITS ---
WS: [id number] CT ABDOMEN AND PELVIS WITH CONTRAST HISTORY: Abnormal right kidney on ultrasound TECHNIQUE: Imaging performed of the abdomen and pelvis with IV contrast. Single phase imaging of the abdomen. Coronal and sagittal reformats are submitted. All CT scans at [facility] use at least one of these dose optimization techniques: automated exposure control; mA and/or kV adjustment per patient size (includes targeted exams where dose is matched to clinical indication); or iterative reconstruction. IV CONTRAST: Omnipaque 350; 100 mL IV. Oral contrast: No DLP: 296.74 mGy.cm COMPARISON: Ultrasound 12/07/2024, prior CT 12/23/2020 Lower thorax: Lung bases are clear. Heart is normal size. No hiatal hernia. Liver/biliary system: Liver is top normal size. No intrahepatic duct dilatation. Normal portal vein. Dense calcification in the central liver has been present since 2020. Gallbladder: Normal. No gallstones or wall thickening. No pericholecystic fluid. Pancreas: Normal size pancreas and pancreatic duct. No adjacent inflammation. Spleen: Normal size spleen. No mass or infarct. Adrenal glands: Normal. Right kidney: Normal size kidney. 4.4 mm low-attenuation cortical nodule identified in the mid kidney. This corresponds to the hyperechoic focus seen on the recent ultrasound. Most consistent with a small angiomyolipoma. No enhancing component. Left kidney: Normal. Aorta: Normal. Lymphadenopathy: None. Free fluid: Small amount of free fluid in the cul-de-sac. GI tract: No GI tract obstruction. Normal small bowel. Mild increased amount of fluid in the small bowel. Normal appendix. No colitis. Abdominal wall: Unremarkable abdominal wall. No hernia. Pelvis: Uterus is midline. Mild widening of the endometrium to 1.3 cm. Free fluid in the cul-de-sac. Small follicles within the RIGHT ovary. The entire full follicle complex measures 3.4 x 2.7 cm. There is wall enhancement suggesting involuting corpus luteal cyst. Bones: Unremarkable. CT/CT abdomen pelvis w con* [id number] IMPRESSION: 1. Cortical focus mid RIGHT kidney measures 4.4 mm. This is consistent with an angiomyolipoma in conjunction with the renal ultrasound findings. 2. No renal obstruction. 3. Normal appendix. 4. Free fluid in the cul-de-sac is physiologic. Enhancing corpus luteal cyst/f ollicles within the RIGHT ovary.
[2024-12-07] MEDS: iohexol 350 mg/mL 500 mL Btl (per mL) IV (10:59)
[2024-12-07 12:02] VITALS: BP 111/64; PULSE 87; O2SAT 99
== END 2024-12-07 12:03 | disposition home or self-care (01) ==
PROVIDERS: Emergency Provider Family Medicine; PCP Family Medicine
DX: R10.9 Unspecified abdominal pain (principal); Z11.52 Encounter for screening for COVID-19; F17.210 Nicotine dependence, cigarettes, uncomplicated
CPT/HCPCS: 36415; 74177; 76705; 80053; 81001; 83690; 84703; 85025; 87637; 99285

== ENCOUNTER 2025-09-11 08:21 | Emergency (ER) | payer MEDICAID, SELFPAY ==
[2025-09-11 08:25] VITALS: BP 116/42; PULSE 73; RESP 16; TEMP 37; O2SAT 96
--- NOTE | 2025-09-11 08:26 | W.ED.DENTAL ---
HPI - Dental/Oral General: Chief complaint: Dental/Oral Stated complaint: L side tooth pain Time Seen by Provider: 09/11/25 08:27 History of Present Illness: Patient presents with dental pain. This been going on for a while now. She has known poor dentition. Has been having trouble chewing. She has not been to get away from work to get to the dentist. Now she has worsening pain Related Data Home Medications ?Medication ?Instructions ?Recorded ?Confirmed ibuprofen 200 mg tablet (Advil) 800 mg PO Q6H PRN Fever Or Pain 12/07/24 12/07/24 Previous Rx's ?Medication ?Instructions ?Recorded promethazine 25 mg tablet 25 mg PO Q6H PRN nausea and 12/07/24 vomiting #20 tabs clindamycin HCl 300 mg capsule 600 mg (2 x 300 mg) PO Q8H 10 days 09/11/25 #60 caps tramadol 50 mg tablet 50 mg PO Q8H PRN pain #10 tabs 09/11/25 Allergies Allergy/AdvReac Type Severity Reaction Status Date / Time amoxicillin Allergy ADR/ALGY-Fl Verified 10/27/24 07:47 ushing Penicillins Allergy ALGY-Hives Verified 10/27/24 07:47 Review of Systems Narrative: Constitutional symptoms: Negative except as documented in HPI. Skin symptoms: Negative except as documented in HPI. Eye symptoms: Negative except as documented in HPI. ENMT symptoms: Negative except as documented in HPI. Respiratory symptoms: Negative except as documented in HPI. Cardiovascular symptoms: Negative except as documented in HPI. Gastrointestinal symptoms: Negative except as documented in HPI. Genitourinary symptoms: Negative except as documented in HPI. Musculoskeletal symptoms: Negative except as documented in HPI. Neurologic symptoms: Negative except as documented in HPI. Psychiatric symptoms: Negative except as documented in HPI. Endocrine symptoms: Negative except as documented in HPI. PFS ED PFS: Medical History (Updated 09/11/25 @ 08:28 by Lauryn Oswald MD) Chronic pelvic pain in female Asthma Surgical History S/P tonsillectomy Family History Mother Hypertension Thyroid disease Denies family history of Colon cancer Ovarian cancer Diabetes CAD (coronary artery disease) Clotting disorder Hyperlipidemia Breast cancer Anesthesia complication Bleeding disorder Uterine cancer Stroke Social History Smoking and tobacco/nicotine status: current every day tobacco/nicotine user cigarettes Packs smoked per day: 1 Alcohol intake: never Substance/Drug Use: never Physical Exam Narrative: EXAM NARRATIVE: General: Alert, no acute distress. Skin: warm and dry Head: Normocephalic Neck: Trachea midline Eye: Extraocular movements are intact. Ears, nose, mouth and throat: Oral mucosa moist. Poor dentition. With multiple broken teeth and dental caries Respiratory: Respirations are non-labored Musculoskeletal: Normal ROM Gastrointestinal: Abdomen does not appear distended Neurological: Alert and oriented, No focal neurological deficit observed. Psychiatric: Cooperative, appropriate mood & affect. Course Vital Signs: Vital signs: Vital Signs Temperature 98.6 F 09/11/25 08:25 Pulse Rate 78 09/11/25 08:36 Respiratory Rate 16 09/11/25 08:25 Blood Pressure 114/62 09/11/25 08:36 Pulse Oximetry 78 L 09/11/25 08:36 Oxygen Delivery Me thod Room Air 09/11/25 08:25 MDM - Dental/Oral Medical Decision Making Medical decision making Patient's reason for coming to the emergency room: Dental pain Social determinants: Patient is employed I reviewed the patient's medical record. Last seen in the emergency room in November for abdominal pain I reviewed the patient's current home meds No chronic medications Alternate historians: None Differential diagnosis: including but not limited to and based on the above HPI, review of systems and physical exam: This seems to be a fairly clear case of dental infection. She has poor dentition and now worsening pain in possible swelling. No imaging or lab work indicated today. Assessment and plan: Dental infection ?Patient allergic to penicillin so placing her on clindamycin - Discharged home - Discussed plan with patient. Answered any questions. - Evaluation and treatment of this problem were appropriate in the emergency setting. No radiology studies performed this visit Discharge Plan Discharge Patient Disposition: Home Clinical Impression: Dental infection, Pain, dental Condition: Stable Prescriptions: New clindamycin HCl 300 mg capsule 600 mg PO Q8H 10 Days Qty: 60 0RF tramadol 50 mg tablet 50 mg PO Q8H PRN (Reason: pain) Qty: 10 0RF No Action ibuprofen [Advil] 200 mg Tablet 800 mg PO Q6H PRN (Reason: Fever Or Pain) promethazine 25 mg tablet 25 mg PO Q6H PRN (Reason: nausea and vomiting) Qty: 20 0RF Discharge Orders: Discharge ED (Routine); Ordered 09/11/25 Ordered By: Lauryn Oswald Referrals: Eddie Chiu MD [Primary Care Provider, Family Practice] Patient Instructions: Dental Abscess (ED), Opioid Safety, Pain Management, Patient Portal & Isaias Instructions Activity Restrictions/Additional Instructions: Please follow-up with a dentist to soon as possible Thank you for choosing [facility] for your healthcare needs today. You have been screened and evaluated and felt safe for discharge. Health conditions do change or evolve sometimes and as such it is important that you follow up with your Primary Doctor to be re checked, 3-5 days is a general good time frame for follow up. You are always welcome to return to the ED for re assessment if your symptoms are worsening or you have new concerns. (Please note that included in your discharge packet is information concerning opioid safety and pain management. This information is given to all patients who are discharged from the ER regardless of their discharge diagnosis or the medicines they usually take or are prescribed.) Print Language: Turkish Coding Level of Care Code ED Dynamometer Repairer for Sam Nix
[2025-09-11 08:36] VITALS: BP 114/62; PULSE 78; O2SAT 78
== END 2025-09-11 08:41 | disposition home or self-care (01) ==
PROVIDERS: Emergency Provider Emergency Medicine; PCP Family Medicine
DX: K04.7 Periapical abscess without sinus (principal); K08.89 Other specified disorders of teeth and supporting structures; F17.210 Nicotine dependence, cigarettes, uncomplicated
CPT/HCPCS: 99283